=== PATIENT | female | born 1995 | race Hispanic/Latino ===

== ENCOUNTER 2018-03-02 07:16 | Emergency (ER) | payer OTHER ==
[2018-03-02] MEDS ORDERED: ACETAMINOPHEN 500 MG TAB ONE (07:54)
[2018-03-02] MEDS ORDERED: ACETAMINOPHEN 325 MG TABLET ONE (08:02)
[2018-03-02 08:22] LABS: Absolute Lymphocytes (CBC) 0.3 K/uL (0.7-4.9); Absolute Monocytes 0.3 K/uL (0.1-1.3); Absolute Neutrophil 2.7 K/uL (1.8-8.0); Basophils % 0.4 % (0-1.3); Hematocrit 38.8 % (36.0-45.0); Lymphocytes % 8.7 % (15.3-44.8); MCH 30.8 pg (27.0-35.0); MCV 89.6 fL (80-100); MPV 8.8 fL (7.6-11.3); Monocytes % 8.1 % (3.3-12.3); RBC Red Blood Cell Count 4.33 M/uL (3.86-4.86)
[2018-03-02 08:37] LABS: Albumin 3.9 g/dL (3.4-5.0); Bilirubin Direct 0.1 mg/dL (0-0.2); Bilirubin Total 0.2 mg/dL (0.2-1.0); Potassium 3.7 mmol/L (3.5-5.1); Protein, Total 8.1 g/dL (6.4-8.2)
[2018-03-02] MEDS ORDERED: NA CHLORIDE 0.9% 1,000 ML ONE (08:44)
[2018-03-02] MEDS ORDERED: ONDANSETRON 4 MG/2 ML VIAL ONE (08:44)
[2018-03-02 08:52] LABS: Urine Bacteria <20 /HPF (<20); Urine Culture Reflex Order REFLEXED; Urine RBC NONE SEEN /HPF (NONE SEEN)
[2018-03-02 09:22] LABS: Urine Blood NEGATIVE (NEG); Urine Glucose NEGATIVE (NEG); Urine Protein NEGATIVE (NEG)
--- NOTE | 2018-03-02 09:32 | RAD REPORT ---
EXAM DESCRIPTION: CT - Abdomen Pelvis W Contrast - 03/02/2018 8:59 am CLINICAL HISTORY: Abdominal pain with nausea. COMPARISON: 2013 TECHNIQUE: Computed axial tomography of the abdomen pelvis was obtained. 100 cc Isovue-300 was admin istered intravenously. Oral contrast was not requested which limits evaluation of bowel. All CT scans are performed using dose optimization technique as appropriate and may include automated exposure control or mA/KV adjustment according to patient size. FINDINGS: A 5.1 centimeter mass within the left lobe of the liver is unchanged probably representing focal nodular hyperplasia. Spleen, pancreas, adrenal and kidneys appear unremarkable. There is no evidence of diverticulitis. The appendix is normal. 2 centimeters right ovarian cyst is present. Small amount of free fluid within pelvis is noted. Tiny umbilical hernia is seen. Endometrial stripe is prominent IMPRESSION: 2 centimeters right ovarian cyst is present. Small amount of free fluid within pelvis is noted Endometrial stripe is prominent. Pelvic ultrasound in a couple of months is recommended to assess sta bility/resolution
--- NOTE | 2018-03-02 11:35 | ER ---
Nurse's Notes [facility] Name: Oralia Angeles Age: 22 yrs Sex: Female : 1995 Arrival Date: 03/02/2018 Time: 07:19 Bed 20 Private MD: Fanny Argueta K Diagnosis: Other ovarian cysts;Viral infection, unspecified Presentation: 03/02 07:21 Initial Sepsis Screen: Does the patient meet any 2 criteria? No. Patient's initial rb1 sepsis screen is negative. Does the patient have a suspected source of infection? No. Patient's initial sepsis screen is negative. Care prior to arrival: None. 07:26 Presenting complaint: Patient states: Nausea, chills, malaise since yesterday. Had I\T\D hb of left axilla last week by Dr. Hall, on unknown abx. Transition of care: patient was not received from another setting of care. Onset of symptoms was March 01, 2018. Risk Assessment: Do you want to hurt yourself or someone else? Patient reports no desire to harm self or others. 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 - Social history:: Smoking status: Patient/guardian denies using tobacco. - Ebola Screening: : No symptoms or risks identified at this time. Screenin:21 Abuse screen: Denies threats or abuse. Nutritional screening: No deficits noted. rb1 Tuberculosis screening: No symptoms or risk factors identified. Fall Risk None identified. Assessment: 07:21 General: Appears uncomfortable, Behavior is calm, cooperative, Reports chills for fever rb1 for feeling ill for 12-24 hours, fatigue for 12-24 hours. Pain: Complains of pain in head Pain currently is 7 out of 10 on a pain scale. Pain began 1 day ago. Neuro: Level of Consciousness is awake, alert, obeys commands, Oriented to person, place, time, situation. Cardiovascular: Capillary refill < 3 seconds is brisk in bilateral fingers. Respiratory: Airway is patent Respiratory effort is even, unlabored, Respiratory pattern is regular, symmetrical. GI: Abdomen is flat, Reports nausea. : No signs and/or symptoms were reported regarding the genitourinary system. Derm: Skin is dry, Skin is normal, Skin temperature is warm. Musculoskeletal: Range of motion: intact in all extremities. 08:20 Reassessment: Patient appears in no apparent distress at this time. No changes from rb1 previously documented assessment. 09:20 Reassessment: Patient appears in no apparent distress at this time. Patient and/or rb1 family updated on plan of care and expected duration. Pain level reassessed. Patient is alert, oriented x 3, equal unlabored respirations, skin warm/dry/pink. 10:20 Reassessment: Patient appears in no apparent distress at this time. No changes from rb1 previously documented assessment. Significant other at bedside. 11:19 Reassessment: Patient appears in no apparent distress at this time. Patient and/or rb1 family updated on plan of care and expected duration. Pain level reassessed. Patient is alert, oriented x 3, equal unlabored respirations, skin warm/dry/pink. Pt. is watching TV. Discharge pending due to the provider speaking with the pt. about test results. 12:12 Reassessment: Patient appears in no apparent distress at this time. Asked the provider rb1 to speak with the pt. so she could be discharge. 12:40 Reassessment: Provider at bedside. rb1 Vital Signs: 07:27 BP 109 / 72; Pulse 132; Resp 16; Temp 100.8(O); Pulse Ox 100% on R/A; Weight 68.04 kg; hb Height 5 ft. 1 in. (154.94 cm); Pain 7/10; 08:27 BP 101 / 65; Pulse 105; Resp 17; Pulse Ox 99% on R/A; rb1 09:27 BP 104 / 67; Pulse 104; Resp 17; Pulse Ox 99% on R/A; rb1 10:25 BP 103 / 66; Pulse 97; Resp 17; Temp 99(O); Pulse Ox 99% on R/A; rb1 12:25 BP 102 / 68; Pulse 92; Resp 16; Pulse Ox 98% on R/A; rb1 07:27 Body Mass Index 28.34 (68.04 kg, 154.94 cm) ED Course: 07:19 Patient arrived in ED. as 07:20 Fanny Argueta MD is Private Physician. as 07:21 Patient has correct armband on for positive identification. Placed in gown. Bed in low rb1 position. Call light in reach. Side rails up X 1. Pulse ox on. NIBP on. sheet was given. 07:23 Ramesh Rodriguez NP is PHCP. pm1 07:27 Triage completed. hb 07:27 Arm band placed on left wrist. hb 07:30 Tiffanie Rosenberg RN is Primary Nurse. rb1 07:33 Jesús Coles MD is Attending Physician. pm1 08:10 Inserted saline lock: 22 gauge in left antecubital area, using aseptic technique. Blood rb1 collected. 08:[address] via wheelchair. jg6 08:53 CT completed. Patient tolerated procedure well. Patient moved back from CT. jg6 08:58 CT Abd/Pelvis - W/Contrast: IV contrast only In Process Unspecified. EDMS 12:48 No provider procedures requiring assistance completed. IV discontinued, intact, rb1 bleeding controlled, No redness/swelling at site. Pressure dressing applied. Administered Medications: 08:00 Drug: Tylenol 650 mg Route: PO; rb1 10:01 Follow up: Response: No adverse reaction; Temperature is decreased; Temp 99.0 rb1 08:20 Not Given (provider changed order): Tylenol 1000 mg PO once rb1 09:10 Drug: NS 0.9% 1000 ml Route: IV; Rate: 1000 ml; Site: left antecubital; rb1 10:19 Follow up: IV Status: Completed infusion rb1 09:10 Drug: Zofran 4 mg Route: IVP; Site: left antecubital; rb1 09:30 Follow up: Response: No adverse reaction; Nausea is decreased rb1 Intake: Outcome: 11:34 Discharge ordered by . pm1 12:48 Patient left the ED. rb1 12:48 Discharged to home ambulatory. rb1 12:48 Condition: stable 12:48 Discharge instructions given to patient, Instructed on discharge instructions, follow up and referral plans. medication usage, Demonstrated understanding of instructions, follow-up care, medications, Prescriptions given X 1. Signatures: Dispatcher [employer] EDMS Nicole Hall as Tiffanie Rosenberg RN RN rb1 Ramesh Rodriguez NP NURSE PRIVATE DUTY pm1 Chiara Ramos RN RN Tata Bales jg6
--- NOTE | 2018-03-02 11:35 | EDPHYS ---
Physician Documentation [facility] Name: Oralia Angeles Age: 22 yrs Sex: Female : 1995 Arrival Date: 03/02/2018 Time: 07:19 Bed 20 Private MD: Fanny Argueta K ED Physician Jesús Coles HPI: 03/02 08:00 This 22 yrs old Female presents to ER via Ambulatory with complaints of pm1 Nausea, Dizziness, Weakness. 08:00 The patient presents to the emergency department with nausea, chills, decreased energy. pm1 Onset: The symptoms/episode began/occurred yesterday. Possible causes: unknown. The symptoms are aggravated by nothing. The symptoms are alleviated by nothing. Associated signs and symptoms: Pertinent positives: fever, Pertinent negatives: abdominal pain, constipation, diarrhea, dysuria, vomiting. Severity of symptoms: Pain is currently a 0 / 10. The patient has been recently seen by a physician: for apparently unrelated complaints, cyst removal on right arm by Dr. Hall. Wound evaluated this week and no signs of infection present. 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 - Social history:: Smoking status: Patient/guardian denies using tobacco. - Ebola Screening: : No symptoms or risks identified at this time. ROS: 08:00 Eyes: Negative for injury, pain, redness, and discharge, ENT: Negative for injury, pm1 pain, and discharge, Neck: Negative for injury, pain, and swelling, Cardiovascular: Negative for chest pain, palpitations, and edema, Respiratory: Negative for shortness of breath, cough, wheezing, and pleuritic chest pain, Back: Negative for injury and pain, MS/Extremity: Negative for injury and deformity, Skin: Negative for injury, rash, and discoloration. 08:00 : Negative for injury, bleeding, discharge, and swelling. 08:00 Constitutional: Positive for body aches, fever, malaise. 08:00 Abdomen/GI: Positive for nausea, Negative for abdominal pain, vomiting, diarrhea. 08:00 Neuro: Negative for dizziness, headache, numbness, tingling, weakness. Exam: 08:00 Constitutional: This is a well developed, well nourished patient who is awake, alert, pm1 and in no acute distress. Head/Face: Normocephalic, atraumatic. Eyes: Pupils equal round and reactive to light, extra-ocular motions intact. Lids and lashes normal. Conjunctiva and sclera are non-icteric and not injected. Cornea within normal limits. Periorbital areas with no swelling, redness, or edema. ENT: Nares patent. No nasal discharge, no septal abnormalities noted. Tympanic membranes are normal and external auditory canals are clear. Oropharynx with no redness, swelling, or masses, exudates, or evidence of obstruction, uvula midline. Mucous membranes moist. Neck: Trachea midline, no thyromegaly or masses palpated, and no cervical lymphadenopathy. Supple, full range of motion without nuchal rigidity, or vertebral point tenderness. No Meningismus. Chest/axilla: Normal chest wall appearance and motion. Nontender with no deformity. No lesions are appreciated. Cardiovascular: Regular rate and rhythm with a normal S1 and S2. No gallops, murmurs, or rubs. Normal PMI, no JVD. No pulse deficits. Respiratory: Lungs have equal breath sounds bilaterally, clear to auscultation and percussion. No rales, rhonchi or wheezes noted. No increased work of breathing, no retractions or nasal flaring. Abdomen/GI: Soft, non-tender, with normal bowel sounds. No distension or tympany. No guarding or rebound. No evidence of tenderness throughout. Back: No spinal tenderness. No costovertebral tenderness. Full range of motion. Skin: Warm, dry with normal turgor. Normal color with no rashes, no lesions, and no evidence of cellulitis. MS/ Extremity: Pulses equal, no cyanosis. Neurovascular intact. Full, normal range of motion. 08:00 Neuro: Orientation: is normal, Motor: is normal, moves all fours, Sensation: is normal, no obvious gross deficits, Gait: is steady, at a normal pace, without difficulty. Vital Signs: 07:27 BP 109 / 72; Pulse 132; Resp 16; Temp 100.8(O); Pulse Ox 100% on R/A; Weight 68.04 kg; hb Height 5 ft. 1 in. (154.94 cm); Pain 7/10; 08:27 BP 101 / 65; Pulse 105; Resp 17; Pulse Ox 99% on R/A; rb1 09:27 BP 104 / 67; Pulse 104; Resp 17; Pulse Ox 99% on R/A; rb1 10:25 BP 103 / 66; Pulse 97; Resp 17; Temp 99(O); Pulse Ox 99% on R/A; rb1 12:25 BP 102 / 68; Pulse 92; Resp 16; Pulse Ox 98% on R/A; rb1 07:27 Body Mass Index 28.34 (68.04 kg, 154.94 cm) hb MDM: 07:23 Patient medically screened. pm1 11:27 Data reviewed: vital signs. Data interpreted: Pulse oximetry: on room air is 99 %. pm1 Interpretation: normal. 11:32 Counseling: I had a detailed discussion with the patient and/or guardian regarding: the pm1 historical points, exam findings, and any diagnostic results supporting the discharge/admit diagnosis, lab results, radiology results, the need for outpatient follow up, to return to the emergency department if symptoms worsen or persist or if there are any questions or concerns that arise at home. 03/02 07:46 Order name: Urine Microscopic Only; Complete Time: 09:35 pm1 03/02 07:46 Order name: Flu; Complete Time: 11:28 pm1 03/02 07:46 Order name: Strep; Complete Time: 11:28 pm1 03/02 07:49 Order name: Basic Metabolic Panel; Complete Time: 08:48 pm1 03/02 07:49 Order name: CBC with Diff; Complete Time: 08:48 pm1 03/02 07:49 Order name: Creatinine for Radiology; Complete Time: 08:48 pm1 03/02 07:49 Order name: Hepatic Function; Complete Time: 08:48 pm1 03/02 07:49 Order name: Lipase; Complete Time: 08:48 pm1 03/02 07:50 Order name: Woods Screen Profile pm1 03/02 07:51 Order name: Woods Screen; Complete Time: 09:35 EDMS 03/02 08:37 Order name: Urine Dipstick--Ancillary (enter results); Complete Time: 09:35 eb 03/02 08:37 Order name: Urine --Ancillary (enter results); Complete Time: 09:35 eb 03/02 08:54 Order name: Urine Culture [facility] 03/02 09:40 Order name: Throat Culture [facility] 03/02 07:46 Order name: Urine Dipstick-Ancillary (obtain specimen); Complete Time: 08:20 pm1 03/02 07:49 Order name: IV Saline Lock; Complete Time: 08:19 pm1 03/02 07:49 Order name: Labs collected and sent; Complete Time: 08:19 pm1 03/02 07:50 Order name: CT Abd/Pelvis - W/Contrast: IV contrast only; Complete Time: 09:35 pm1 Administered Medications: 08:00 Drug: Tylenol 650 mg Route: PO; rb1 10:01 Follow up: Response: No adverse reaction; Temperature is decreased; Temp 99.0 rb1 08:20 Not Given (provider changed order): Tylenol 1000 mg PO once rb1 09:10 Drug: NS 0.9% 1000 ml Route: IV; Rate: 1000 ml; Site: left antecubital; rb1 10:19 Follow up: IV Status: Completed infusion rb1 09:10 Drug: Zofran 4 mg Route: IVP; Site: left antecubital; rb1 09:30 Follow up: Response: No adverse reaction; Nausea is decreased rb1 Disposition: 03/02/18 11:34 Discharged to Home. Impression: Viral infection, unspecified, Other ovarian cysts. - Condition is Stable. - Discharge Instructions: Fever, Adult, Nausea, Adult, Ovarian Cyst. - Prescriptions for Zofran 4 mg Oral Tablet - take 1 tablet by ORAL route every 12 hours As needed; 20 tablet. - Work release form, Medication Reconciliation Form, Thank You Letter, Antibiotic Education form. - Follow up: Emergency Department; When: As needed; Reason: Worsening of condition. Follow up: Private Physician; When: 2 - 3 days; Reason: Recheck today's complaints, Continuance of care, Re-evaluation by your physician. - Problem is new. - Symptoms have improved. Addendum: 03/04/2018 13:24 Co-signature as Attending Physician, Jesús Coles MD I agree with the assessment and k dr plan of care. Signatures: Dispatcher [employer] [facility] Jesús Coles MD MD kdr Barber, Rebecca, RN RN rb1 Ramesh Rodriguez, PATIENT SERVICES MANAGER PATIENT SERVICES MANAGER pm1 Chiara Ramos RN RN Corrections: (The following items were deleted from the chart) 03/02 12:28 11:34 03/02/2018 11:34 Discharged to Home. Impression: Other ovarian cysts. Condition pm1 is Stable. Forms are Medication Reconciliation Form, Thank You Letter, Antibiotic Education, Prescription Opioid Use. Follow up: Emergency Department; When: As needed; Reason: Worsening of condition. Follow up: Private Physician; When: 2 - 3 days; Reason: Recheck today's complaints, Continuance of care, Re-evaluation by your physician. Problem is new. Symptoms have improved. pm1 12:48 12:28 03/02/2018 11:34 Discharged to Home. Impression: Viral infection, rb1 unspecifiedOther ovarian cysts. Condition is Stable. Discharge Instructions: Ovarian Cyst, Influenza, Adult. Forms are Medication Reconciliation Form, Thank You Letter, Antibiotic Education, Prescription Opioid Use. Follow up: Emergency Department; When: As needed; Reason: Worsening of condition. Follow up: Private Physician; When: 2 - 3 days; Reason: Recheck today's complaints, Continuance of care, Re-evaluation by your physician. Problem is new. Symptoms have improved. pm1
== END 2018-03-02 12:48 | disposition home or self-care (01) ==
LOC: ER 07:16
DX: B34.9 Viral infection, unspecified (principal); N83.299 Other ovarian cyst, unspecified side
CPT/HCPCS: 36415; 74177; 80048; 80076; 81003; 81015; 81025; 83690; 85025; 86308; 87070; 87081; 87086; 87088; 87804; 96361; 96374; 99284; J2405; J7030; Q9967

== ENCOUNTER 2018-03-13 19:13 | Emergency (ER) | payer OTHER ==
--- NOTE | 2018-03-13 20:42 | RAD REPORT ---
EXAM DESCRIPTION: RAD - Ankle Right 3 View - 03/13/2018 8:37 pm CLINICAL HISTORY: Right ankle pain status post injury FINDINGS: No fracture or dislocation is seen. Soft tissue swelling is seen
--- NOTE | 2018-03-13 21:02 | EDPHYS ---
Physician Documentation [facility] Name: Oralia Angeles Age: 22 yrs Sex: Female : 1995 Arrival Date: 03/13/2018 Time: 19:14 Bed 12 Private MD: Fanny Argueta K ED Physician Miguel Kenyon HPI: 03/13 20:57 This 22 yrs old Female presents to ER via Wheelchair with complaints of Right pm1 Ankle Injury. 20:57 The patient presents with pain, swelling. The complaints affect the right ankle. pm1 Context: The problem was sustained outdoors, resulted from turned right ankle while running, the patient is able to ambulate, Problem is a result from a previous injury: No. Onset: The symptoms/episode began/occurred today. Modifying factors: The symptoms are alleviated by remaining still, the symptoms are aggravated by weight bearing. Associated signs and symptoms: Pertinent negatives calf tenderness, numbness, tingling. Treatment prior to arrival includes: no previous treatment. Severity of symptoms: in the emergency department the symptoms are unchanged. Patient running and she turned her right ankle. Patient reports pain with bearing weight on right foot. 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 - Social history:: Smoking status: Patient/guardian denies using tobacco. - Ebola Screening: : Patient negative for fever greater than or equal to 101.5 degrees Fahrenheit, and additional compatible Ebola Virus Disease symptoms Patient denies exposure to infectious person Patient denies travel to an Ebola-affected area in the 21 days before illness onset. ROS: 20:57 Constitutional: Negative for fever, chills, and weight loss, Eyes: Negative for injury, pm1 pain, redness, and discharge, ENT: Negative for injury, pain, and discharge, Neck: Negative for injury, pain, and swelling, Cardiovascular: Negative for chest pain, palpitations, and edema, Respiratory: Negative for shortness of breath, cough, wheezing, and pleuritic chest pain, Abdomen/GI: Negative for abdominal pain, nausea, vomiting, diarrhea, and constipation, Back: Negative for injury and pain. 20:57 Skin: Negative for injury, rash, and discoloration, Neuro: Negative for headache, weakness, numbness, tingling, and seizure. 20:57 MS/extremity: Positive for pain, of the right ankle. Exam: 20:57 Constitutional: This is a well developed, well nourished patient who is awake, alert, pm1 and in no acute distress. Head/Face: Normocephalic, atraumatic. Eyes: Pupils equal round and reactive to light, extra-ocular motions intact. Lids and lashes normal. Conjunctiva and sclera are non-icteric and not injected. Cornea within normal limits. Periorbital areas with no swelling, redness, or edema. ENT: Nares patent. No nasal discharge, no septal abnormalities noted. Tympanic membranes are normal and external auditory canals are clear. Oropharynx with no redness, swelling, or masses, exudates, or evidence of obstruction, uvula midline. Mucous membranes moist. Neck: Trachea midline, no thyromegaly or masses palpated, and no cervical lymphadenopathy. Supple, full range of motion without nuchal rigidity, or vertebral point tenderness. No Meningismus. Chest/axilla: Normal chest wall appearance and motion. Nontender with no deformity. No lesions are appreciated. Cardiovascular: Regular rate and rhythm with a normal S1 and S2. No gallops, murmurs, or rubs. Normal PMI, no JVD. No pulse deficits. Respiratory: Lungs have equal breath sounds bilaterally, clear to auscultation and percussion. No rales, rhonchi or wheezes noted. No increased work of breathing, no retractions or nasal flaring. Abdomen/GI: Soft, non-tender, with normal bowel sounds. No distension or tympany. No guarding or rebound. No evidence of tenderness throughout. Back: No spinal tenderness. No costovertebral tenderness. Full range of motion. 20:57 Skin: Warm, dry with normal turgor. Normal color with no rashes, no lesions, and no evidence of cellulitis. 20:57 Musculoskeletal/extremity: Extremities: grossly normal except: noted in the right ankle lateral aspect: pain, swelling, tenderness, ROM: intact in all extremities, Circulation is intact in all extremities. the right foot Sensation intact. 20:57 Neuro: Orientation: is normal, Motor: is normal, moves all fours. Vital Signs: 19:53 BP 100 / 76; Pulse 96; Resp 18; Temp 97.4(O); Pulse Ox 100% on R/A; Weight 68.04 kg fc (R); Height 5 ft. 1 in. (154.94 cm); Pain 9/10; 19:53 Body Mass Index 28.34 (68.04 kg, 154.94 cm) fc MDM: 20:06 Patient medically screened. pm1 21:01 Data reviewed: vital signs. Data interpreted: Pulse oximetry: on room air is 100 %. pm1 Interpretation: normal. Counseling: I had a detailed discussion with the patient and/or guardian regarding: the historical points, exam findings, and any diagnostic results supporting the discharge/admit diagnosis, radiology results, the need for outpatient follow up, a orthopedic surgeon, to return to the emergency department if symptoms worsen or persist or if there are any questions or concerns that arise at home. 03/13 20:10 Order name: Ankle Right 3 View XRAY; Complete Time: 20:52 lp1 03/13 20:57 Order name: Aircast Ankle Splint; Complete Time: 21:16 pm1 03/13 20:57 Order name: Crutches; Complete Time: 21:16 pm1 Administered Medications: No medications were administered Disposition: 03/14 02:10 Co-signature as Attending Physician, Miguel Kenyon MD I agree with the assessment and tw4 plan of care. Attestation: The patient's history, exam findings, diagnostics, and a summary of any interventions or procedures was reviewed in detail with Ramesh Rodriguez NP. Disposition: 03/13/18 21:02 Discharged to Home. Impression: Sprain of other ligament of right ankle. - Condition is Stable. - Discharge Instructions: Ankle Sprain, Cast or Splint Care, Adult, Crutch Use, RICE for Routine Care of Injuries, Ankle Pain. - Prescriptions for Naprosyn 500 mg Oral Tablet - take 1 tablet by ORAL route 2 times per day take with food; 30 tablet. Tylenol- Codeine #3 300-30 mg Oral Tablet - take 2 tablets by ORAL route every 6 hours As needed; 20 tablet. - Work release form, Medication Reconciliation Form, Thank You Letter, Prescription Opioid Use form. - Follow up: Emergency Department; When: As needed; Reason: Worsening of condition. Follow up: Karan Kennedy MD; When: 2 - 3 days; Reason: Recheck today's complaints, Continuance of care, Re-evaluation by your physician. - Problem is new. - Symptoms have improved. Signatures: Dispatcher [employer] EDMS Regina Amezcua RN RN Daphne Obregon RN RN lp1 Ramesh Rodriguez, PIPE MACHINE OPERATOR PIPE MACHINE OPERATOR pm1 Miguel Kenyon MD MD tw4 Corrections: (The following items were deleted from the chart) 03/13 21:18 21:02 03/13/2018 21:02 Discharged to Home. Impression: Sprain of other ligament of lp1 right ankle. Condition is Stable. Forms are Medication Reconciliation Form, Thank You Letter, Antibiotic Education, Prescription Opioid Use. Follow up: Emergency Department; When: As needed; Reason: Worsening of condition. Follow up: Dr. Karan Kennedy; When: 2 - 3 days; Reason: Recheck today's complaints, Continuance of care, Re-evaluation by your physician. Problem is new. Symptoms have improved. pm1
--- NOTE | 2018-03-13 21:02 | ER ---
Nurse's Notes [facility] Name: Oralia Angeles Age: 22 yrs Sex: Female : 1995 Arrival Date: 03/13/2018 Time: 19:14 Bed 12 Private MD: Fanny Argueta K Diagnosis: Sprain of other ligament of right ankle Presentation: 03/13 19:51 Presenting complaint: Patient states: that she was running and right foot fell in hole fc and rolled outward. States that she heard a pop and now outer side of ankle is swollen and she has decreased ROM. Transition of care: patient was not received from another setting of care. Onset of symptoms was March 13, 2018 at 18:30. Risk Assessment: Do you want to hurt yourself or someone else? Patient reports no desire to harm self or others. Initial Sepsis Screen: Does the patient meet any 2 criteria? HR > 90 bpm. Yes Does the patient have a suspected source of infection? No. Patient's initial sepsis screen is negative. Care prior to arrival: None. 19:51 Method Of Arrival: Wheelchair 19:51 Acuity: LUIS ARMANDO 4 Triage Assessment: 19:54 General: Appears uncomfortable, Behavior is calm, cooperative, appropriate for age. fc Pain: Complains of pain in right foot Pain currently is 9 out of 10 on a pain scale. Quality of pain is described as aching, Pain began 2 hours ago. Is continuous, Aggravated by increased activity, repositioning, weight bearing. EENT: No deficits noted. Neuro: Level of Consciousness is awake, alert, obeys commands, Oriented to person, place, time, situation. Cardiovascular: No deficits noted. Respiratory: No deficits noted. GI: No deficits noted. : No deficits noted. Derm: Skin is pink, warm \T\ dry. Musculoskeletal: Capillary refill < 3 seconds, Range of motion: limited in right ankle Swelling present in right lateral malleolus Reports pain in right foot. 20:13 Injury Description: swelling noted to right lateral ankle. 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 - Social history:: Smoking status: Patient/guardian denies using tobacco. - Ebola Screening: : Patient negative for fever greater than or equal to 101.5 degrees Fahrenheit, and additional compatible Ebola Virus Disease symptoms Patient denies exposure to infectious person Patient denies travel to an Ebola-affected area in the 21 days before illness onset. Screenin:54 Abuse screen: Denies threats or abuse. Nutritional screening: No deficits noted. Tuberculosis screening: No symptoms or risk factors identified. Fall Risk None identified. Assessment: 20:11 General: Appears in no apparent distress. Behavior is appropriate for age. Pain: lp1 Complains of pain in right lateral malleolus Pain currently is 7 out of 10 on a pain scale. Quality of pain is described as aching. Neuro: Level of Consciousness is awake, alert, obeys commands. Cardiovascular: No deficits noted. Respiratory: No deficits noted. GI: No deficits noted. : No deficits noted. EENT: No deficits noted. Derm: Skin is pink, warm \T\ dry. Musculoskeletal: Range of motion: limited in right ankle Swelling present in right lateral malleolus. Vital Signs: 19:53 BP 100 / 76; Pulse 96; Resp 18; Temp 97.4(O); Pulse Ox 100% on R/A; Weight 68.04 kg (R); Height 5 ft. 1 in. (154.94 cm); Pain 9/10; 19:53 Body Mass Index 28.34 (68.04 kg, 154.94 cm) ED Course: 19:14 Patient arrived in ED. am2 19:14 Fanny Argueta MD is Private Physician. am2 19:53 Triage completed. 19:53 Arm band placed on Patient placed in an exam room, on a stretcher. 19:54 Patient has correct armband on for positive identification. Call light in reach. fc 20:02 Daphne Obregon RN is Primary Nurse. lp1 20:03 Ramesh Rodriguez NP is PHCP. pm1 20:03 Miguel Kenyon MD is Attending Physician. pm1 20:14 Patient did not have IV access during this emergency room visit. lp1 20:27 X-ray(s) taken. lp1 20:37 Ankle Right 3 View XRAY In Process Unspecified. EDMS 21:01 Karan Kennedy MD is Referral Physician. pm1 21:16 Crutch training done. Luiz wrap to right ankle Aircast splint applied to right ankle. lp1 21:17 No provider procedures requiring assistance completed. lp1 Administered Medications: No medications were administered Outcome: 21:02 Discharge ordered by . pm1 21:17 Discharged to home with crutches, with significant other. lp1 21:17 Condition: good 21:17 Discharge instructions given to patient, Instructed on discharge instructions, follow up and referral plans. medication usage, crutch walking, Demonstrated understanding of instructions, follow-up care, medications, crutch walking, Prescriptions given X 2. 21:18 Patient left the ED. lp1 Signatures: Dispatcher [employer] EDMT Regina Amezcua RN RN Daphne Benton RN RN lp1 Ramesh Rodriguez, [facility] pm1 Rylie Putnam am2
== END 2018-03-13 21:18 | disposition home or self-care (01) ==
LOC: ER 19:13
DX: S93.491A Sprain of other ligament of right ankle, initial encounter (principal); X58.XXXA Exposure to other specified factors, initial encounter; Y93.02 Activity, running; Y92.89 Other specified places as the place of occurrence of the external cause
CPT/HCPCS: 99283

== ENCOUNTER 2022-12-15 12:42 | Emergency (ER) | payer OTHER ==
--- OUTSIDE RECORDS SUMMARY | 2022-12-15 12:51 | XMS REPORT | Continuity of Care Document ---
:[address] [facility] t Address [address] [facility] [address] [place] [address] Care Team Providers Name Role Phone Fanny Argueta MD Primary Care Physician Fanny Argueta Attending Clinician Unavailable Chino Mccord Attending Clinician Unavailable Erlinda Rushing Attending Clinician Unavailable Ramesh Parisi Attending Clinician Unavailable VANESSA BARRIENTOS Attending Clinician Unavailable GC_[email or web address]_Monical_J Attending Clinician Unavailable Marie Franco Attending Clinician Unavailable LAB90 Attending Clinician Unavailable JUANA DUKES Attending Clinician Unavailable JT LOPEZ Attending Clinician Unavailable SLIM SAINI Attending Clinician Unavailable Slim Saini MD Attending Clinician 2, Adc Lab Attending Clinician Unavailable Lab, Adc Fam Pob I Attending Clinician Unavailable Eva Werner Attending Clinician Doctor Unassigned, [place] Attending Clinician Unavailable Cooper Colby Attending Clinician COOPER HARRIS Attending Clinician Unavailable REGAN PERRY Attending Clinician Unavailable HERIBERTO RUIZ Attending Clinician Unavailable Ileana Nieves Attending Clinician Fanny Argueta Admitting Clinician Unavailable Chino Mccord Admitting Clinician Unavailable Ramesh Parisi Admitting Clinician Unavailable GC_[email or web address]_J Admitting Clinician Unavailable MARIE FRANCO Admitting Clinician Unavailable SLMI SAINI Admitting Clinician Unavailable Payers Payer Name Policy Type Policy Number Effective Date Expiration Date Melody kuo [place] [address] 2 [id number] 2022 00:00:00 DEGREE BENEFIT [facility] [id number] PLANS - OPEN ACCESS [facility] ALICE [id number] 2021 00:00:00 CIGNA II [id number] 2005 00:00:00 Problems Condition Condition Condition Status Onset Resolution Last Treating Co mments Source Name Details Category Date Date Treatment Clinician Date Other Other Disease Active Evelyne fatigue fatigue 07-15 Seybold 00:00: - 00 Externa l Bruising Bruising Disease Active Kelse y 2 Seybold 00:00: - 00 Externa l Asymptomat 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 GI-Dr. 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 [place] elial 00 Medical lesion lesion Branch (LGSIL) on (LGSIL) on Papanicola Papanicola ou smear ou smear of cervix of cervix Pelvic Pelvic Disease Active 2015-05 Univers pain in pain in 2-13 ity of female female 00:00: [place] [facility] Dyspareuni Dyspareuni Disease Active U nivers a a 9-07 ity of 00:00: [place] [address] Medical Branch Allergies, Adverse Reactions, Alerts Allergy Allergy Status Severity Reaction(s) Onset Inactive Treating Comm ents Source Name Type Date Date Clinician No Known [place] [address] [facility] 16 [facility] 00[facility] 00 [facility] No Known DA Active U 0 [facility] Allergie 16 [facility] 00:[facility]: [facility] 00 [facility] No Known DA Active U [facility] Allergie 16 [facility] 00:00: [facility] 00 [facility] No Known DA Active U 0 [facility] Allergie 16 [facility] 00:00: [facility]osp[facility] 00 [facility] NO KNOWN Drug Active Univers ALLERGIE Class ity of [facility] [place] [facility] [place] Family History Family Member Diagnosis Comments Start Date Stop Date Source Paternal grandfather Hypertension [facility] Paternal grandfather [facility] Paternal grandfather Diabetes [facility] Paternal grandmother Diabetes [facility] Maternal grandfather Diabetes [facility] Maternal grandfather Heart disease [facility] Maternal grandfather Hypertension [facility] Maternal grandmother Cancer [facility] Maternal grandmother Diabetes [facility] Maternal grandmother Hypertension [facility] Social History Social Habit Start Date Stop Date Quantity Comments Source ASSERTION 2019-09-24 [facility] 00:[facility]:00 Hospital Exposure to Not sure University of SARS-CoV-2 (event) [facility] Gender identity [facility] Sexual orientation Method [facility] Alcohol intake 2022-07-15 2022-07-15 Lifetime Evelyne De La Cruzgene bold - 00:00:00 00:00:00 non-drinker External (finding) Education 2022-02-05 2022-02-05 16 Evelyne Seybold - 00:00:00 00:00:00 External Tobacco use and 2022-02-05 2022-02-05 Smokeless Evelyne De La Cruz ybold - exposure 00:00:00 00:00:00 tobacco non-user External History of Social 2020-02-27 2020-02-[address] function 00:00:00 00:00:00 Hospital Sex Assigned At [birth year] [facility] 00:00:00 00:00:00 Hospital Smoking Status Start Date Stop Date Source Never smoked tobacco Evelyne nuzhat old - External Medications Ordered Filled Start Stop Current Ordering Indication Dosage Frequency Signature Comments Components Source Medication Medication Date Date Medication? Clinician (SIG) Name Name No known No No known Kelse y medications 9-19 medication Se ybold 09:09: s - 44 Externa l gadobenate 2021- No [id number] .2mL/kg 0.2 mL/kg, Univers dimeglumine 08-28 04-08 Intravenou i ty of (MULTIHANCE 00:15: 00:14 s, ONCE, 1 [place] -10 mL) 00 :00 dose, On Medical injection Ligai 08/27/21 Bran ch 0.2 mL/kg at 1915, Routine Yes 1{tbl} QD Take 1 Metho di vitamins 7-[address] no.2 08:31: mouth Hospita ( 36 daily. l VITAMIN NO.2 ORAL) 2019-0 Yes 1{tbl} QD Take 1 Metho di vitamins 7-[address] no.2 08:31: mouth Hospita ( 36 daily. l VITAMIN NO.2 ORAL) acetaminoph 2019-0 Yes Method i en-codeine 7-16 st (TYLENOL 00:00: Hospita WITH 00 l CODEINE #3) 300-30 mg per tablet ondansetron 2019-0 Yes Method i ODT 7-16 st (ZOFRAN-ODT 00:00: Hospit a ) 4 MG 00 l disintegrat ing tablet acetaminoph 2019-0 Yes Method i en-codeine 16 st (TYLENOL 00:00: Hospita WITH 00 l CODEINE #3) 300-30 mg per tablet ondansetron 2019-0 Yes Method i ODT 16 st (ZOFRAN-ODT 00:00: Hospit a ) 4 MG 00 l disintegrat ing tablet nitrofurant 2019-0 Yes Method i oin, 12-02 st macrocrysta 00:00: Hospit a l-monohydra 00 l te, (MACROBID) 100 MG capsule nitrofurant 2019-0 Yes Method i oin, 12-02 st macrocrysta 00:00: Hospit a l-monohydra 00 l te, (MACROBID) 100 MG capsule cephalexin 2019-0 Yes 500mg Take 500 Me thodi (KEFLEX) 7-[address] 500 MG 00:00: mouth. Hospita capsule 00 l cephalexin 2019-0 Yes 500mg Take 500 Me thodi (KEFLEX) 7-[address] 500 MG 00:00: mouth. Hospita capsule 00 l acetaminoph 2017-05 Yes 1{tbl} Q4H Take 1 Me thodi en-codeine 1-[address] (TYLENOL 10:29: mouth Hospita WITH 23 every 4 l CODEINE #3) (four) 300-30 mg hours as per tablet needed for moderate pain. acetaminoph 2017-05 Yes 1{tbl} Q4H Take 1 Me thodi en-codeine 1-[address] (TYLENOL 10:29: mouth Hospita WITH 23 every 4 l CODEINE #3) (four) 300-30 mg hours as per tablet needed for moderate pain. isometh-dic Yes TAKE 1 OR U nivers hloral-acet 6-27 2 TABLETS ity of aminophn 00:00: BY MOUTH 3 Carlos as 65-100-325 00 TIMES A Medica l mg capsule DAY Branch NEEDED FOR HEADACHE isometh-dic Yes TAKE 1 OR U nivers hloral-acet 6-27 2 TABLETS ity of aminophn 00:00: BY MOUTH 3 [place] as 65-100-325 00 TIMES A Medica l mg capsule DAY Branch NEEDED FOR HEADACHE isometh-dic Yes TAKE 1 OR U nivers hloral-acet 6-27 2 TABLETS ity of aminophn 00:00: BY MOUTH 3 [place] as 65-100-325 00 TIMES A Medica l mg capsule DAY Branch NEEDED FOR HEADACHE isometh-dic Yes TAKE 1 OR U nivers hloral-acet 6-27 2 TABLETS ity of aminophn 00:00: BY MOUTH 3 [place] as 65-100-325 00 TIMES A Medica l mg capsule DAY Branch NEEDED FOR HEADACHE isometh-dic Yes TAKE 1 OR U nivers hloral-acet 6-27 2 TABLETS ity of aminophn 00:00: BY MOUTH 3 [place] as 65-100-325 00 TIMES A Medica l mg capsule DAY Branch NEEDED FOR HEADACHE isometh-dic Yes TAKE 1 OR U nivers hloral-acet 6-27 2 TABLETS ity of aminophn 00:00: BY MOUTH 3 [place] as 65-100-325 00 TIMES A Medica l mg capsule DAY Branch NEEDED FOR HEADACHE isometh-dic Yes TAKE 1 OR U nivers hloral-acet 6-27 2 TABLETS ity of aminophn 00:00: BY MOUTH 3 [place] as 65-100-325 00 TIMES A Medica l mg capsule DAY Branch NEEDED FOR HEADACHE 2015-05 Yes 1{tbl} Take 1 Unive rs VIT 2-13 tablet by ity of W-CA,FE,FA, 21:42[place] <1 MG, 51 Medical ( Branch VITAMIN ORAL) 2015-05 Yes 1{tbl} Take 1 Unive rs VIT 2-13 tablet by ity of W-CA,FE,FA, 21:42: [place] <1 MG, 51 Medical ( Branch VITAMIN ORAL) 2016 Yes 1{tbl} Take 1 Unive rs VIT 2-13 tablet by ity of W-CA,FE,FA, 21:42: [place]. [place] <1 MG, 51 Medical ( Branch VITAMIN ORAL) 2016 Yes 1{tbl} Take 1 Unive rs VIT 2-13 tablet by ity of W-CA,FE,FA, 15:42: [place]. [place] <1 MG, 51 Medical ( Branch VITAMIN ORAL) 2016 Yes 1{tbl} Take 1 Unive rs VIT 2-13 tablet by ity of W-CA,FE,FA, 15:42: [place]. [place] <1 MG, 51 Medical ( Branch VITAMIN ORAL) 2016 Yes 1{tbl} Take 1 Unive rs VIT 2-13 tablet by ity of W-CA,FE,FA, 15:42: [place]. [place] <1 MG, 51 Medical ( Branch VITAMIN ORAL) 2015-05 Yes 1{tbl} Take 1 Unive rs VIT 2-13 tablet by ity of W-CA,FE,FA, 15:42: [place]. [place] <1 MG, 51 Medical ( Branch VITAMIN ORAL) Immunizations Ordered Filled Immunization Date Status Comments [facility] Immunization Name Name Varicella 2015-11-20 Completed [place] (varivax)(chicken 00:00:00 [place] [facility] [place] pox) Branch Varicella 2015-11-20 Completed [facility] (varivax)(chicken 00:00:00 [place] [facility] [place] pox) Branch Varicella 2015-11-20 Completed [place] (varivax)(chicken 00:00:00 [place] [facility] [place] pox) Branch Varicella 2015-11-20 Completed [place] (varivax)(chicken 00:00:00 [place] [facility] [place] pox) Branch Varicella 2015-11-20 Completed University of (varivax)(chicken 00:00:00 [place] [facility] [place] pox) Branch Varicella 2015-11-20 Completed [place] (varivax)(chicken 00:00:00 [place] [facility] [place] pox) Branch Varicella 2015-11-20 Completed [place] (varivax)(chicken 00:00:00 [place] [facility] [place] pox) Branch Varicella Vaccine 2015-11-20 Completed Evelyne Arambula - 00:00:00 External Varicella Vaccine 2015-11-20 Completed Evelyne Arambula - 00:00:00 External MMR 2015-10-13 Completed University of 00:00:00 [facility] Varicella 2015-10-13 Completed University of (varivax)(chicken 00:00:00 [place] [facility] [place] pox) Branch MMR 2015-10-13 Completed University of 00:00:00 [facility] Varicella 2015-10-13 Completed University of (varivax)(chicken 00:00:00 [place] [facility] [place] pox) Branch MMR 2015-10-13 Completed University of 00:00:00 [facility] Varicella 2015-10-13 Completed University of (varivax)(chicken 00:00:00 [place] [facility] [place] pox) Branch MMR 2015-10-13 Completed University of 00:00:00 [facility] Varicella 2015-10-13 Completed University of (varivax)(chicken 00:00:00 [place] [facility] [place] pox) Branch MMR 2015-10-13 Completed University of 00:00:00 [facility] Varicella 2015-10-13 Completed University of (varivax)(chicken 00:00:00 [place] [facility] [place] pox) Branch MMR 2015-10-13 Completed University of 00:00:00 [facility] Varicella 2015-10-13 Completed University of (varivax)(chicken 00:00:00 [place] [facility] [place] pox) Branch MMR 2015-10-13 Completed University of 00:00:00 [facility] Varicella 2015-10-13 Completed University of (varivax)(chicken 00:00:00 [place] [facility] [place] pox) Branch MMR- Measles, 2015-10-13 Completed Evelyne Poole old - Mumps, Rubella 00:00:00 External Varicella Vaccine 2015-10-13 Completed Evelyne Arambula - 00:00:00 External MMR- Measles, 2015-10-13 Completed Evelyne Poole old - Mumps, Rubella 00:00:00 External Varicella Vaccine 2015-10-13 Completed Evelyne Arambula - 00:00:00 External TDAP 2015-08-08 Completed University of 00:00:00 [facility] TDAP 2015-08-08 Completed University of 00:00:00 [facility] TDAP 2015-08-08 Completed University of 00:00:00 [facility] TDAP 2015-08-08 Completed University of 00:00:00 [facility] TDAP 2015-08-08 Completed University of 00:00:00 [facility] TDAP 2015-08-08 Completed University of 00:00:00 [facility] TDAP 2015-08-08 Completed University of 00:00:00 [facility] Branch Tdap- (Boostrix, 2015-08-08 Completed Evelyne Oliver eybold - Adacel) 00:00:00 External Tdap- (Boostrix, 2015-08-08 Completed Evelyne Oliver eybold - Adacel) 00:00:00 External Vital Signs Vital Name Observation Time Observation Value Comments Source Systolic blood 2022-07-15 17:12:00 105 mm[Hg] Evelyne Seybold - pressure External Diastolic blood 2022-07-15 17:12:00 58 mm[Hg] Claytonse y Seybold - pressure External Heart rate 2022-07-15 17:12:00 87 /min Evelyne Oliver eybold - External Body temperature 2022-07-15 17:12:00 37.33 Angie Nathalia ey Seybold - External Respiratory rate 2022-07-15 17:12:00 14 /min Nathalia garrett Seybold - External Body height 2022-07-15 17:12:00 154.9 cm Evelyne garrettbold - External Body weight 2022-07-15 17:12:00 66.679 kg Evelyne garrettbold - External BMI 2022-07-15 17:12:00 27.78 kg/m2 Evelyne garrettbold - External Oxygen saturation in 2022-07-15 17:12:00 99 /min Evelyne De La Cruznuzhatadriana - Arterial blood by External Pulse oximetry Procedures Procedure Date / Time Performing Clinician Source Performed COVID-19 (MOLECULAR 2021-01-02 13:47:00 Eva Corona [facility] TESTING [facility] Branch NUCLEIC ACID AMPLIFICATION) LAB ONLY COVID 2021-01-02 13:47:00 Eva Corona [facility] INTERPRETATION Medical Branch ASSIGNMENT OF BENEFITS 2021-01-02 13:07:31 Doctor Unassigned, Un [facility] [place] [facility] [id number] 2020-06-13 00:00:[address] [place] [address] [id number] 2020-06-13 00:00:00 HARAD.01 [facility] [id number] 2020-06-13 00:00:00 HARAD.01 [facility] [id number] 2020-06-13 00:00:00 HARAD.01 [facility] Plan of Care Planned Activity Planned Date Details Comments Source Future Scheduled 2022-11-11 COVID-19 VACCINE Method[facility] Test 15:53:51 (#1) [code = COVID-19 VACCINE (#1)] Future Scheduled 2022-11-11 [facility] 15:53:51 screening (procedure) [code = 469543408] Future Scheduled 2022-11-11 [facility] Test 15:53:51 malignant neoplasm of cervix (procedure) [code = 538766299] Future Scheduled 2022-11-11 INFLUENZA VACCINE [facility] Test 15:53:51 [code = INFLUENZA VACCINE] Future Scheduled 2022-08-27 COVID-19 VACCINE [facility] Test 00:06:23 (#1) [code = COVID-19 VACCINE (#1)] Future Scheduled 2022-08-27 [facility] 00:06:23 screening (procedure) [code = 744690458] Future Scheduled 2022-08-27 [facility] Test 00:06:23 malignant neoplasm of cervix (procedure) [code = 261113627] Future Scheduled 2022-08-27 INFLUENZA VACCINE [facility] Test 00:06:23 [code = INFLUENZA VACCINE] Encounters Start End Encounter Admission Attending Care Care Encounter Source Date/Time Date/Time Type Type Clinicians Facility Department ID 2020-06-14 Inpatient ONESIMO Argueta SARAY BAIRD [id number] [facility] 06:10:00 Fanny [id number] [facility] 2020-06-13 Inpatient ONESIMO Argueta SARAY BAIRD [id number] [facility] 09:00:00 Fanny [id number] [facility] 2020-06-11 Inpatient ONESIMO Argueta SARAY BAIRD [id number] [facility] 09:00:00 Fanny [id number] [facility] 2020-06-09 Inpatient TAWANA HamiltonWH LD [id number] [facility] 17:00:00 Fanny [id number] [facility] [place] 2020-06-06 Inpatient SARAY Hamilton LD [id number] [facility] 10:00:00 Fanny [id number] [facility] [place] 2020-05-28 Inpatient Bill [facility] OWEN [id number] [facility] 02:58:00 Mass, [id number] [facility] [place] 2020-04-30 Inpatient [facility] MARE [id number] [facility] 11:03:00 [id number] [facility] [place] 2020-01-24 Inpatient TAWANA MoniqueWH RADI [id number] [facility] 07:00:00 Erlinda [id number] [facility] [place] 2020-01-22 Inpatient TAWANA MoniqueWH PHYT [id number] [facility] 00:05:00 Erlinda [id number] [facility] [place] 2020-01-01 Inpatient TAWANA MoniqueWH PHYT [id number] [facility] 15:50:00 Erlinda [id number] [facility] [place] 2019-12-28 Inpatient [facility] MARE [id number] [facility] 09:28:00 [id number] [facility] [place] 2019-12-07 Inpatient CARLO Parisi [facility] MEDI.01 [id number] [facility] 02:18:00 Ramesh [id number] [facility] [place] 2019-12-06 Inpatient [facility] MARE [id number] [facility] 02:59:00 [id number] [facility] [place] 2022-12-15 2022-12-15 Outpatient EVELYNE BARRIENTOS [id number] Evelyne 00:00:00 00:00:00 VANESSA munoz 2022-12-07 2022-12-07 Outpatient GC_GCBZW_Mo PRIV PRIV [id number] [facility] 00:00:00 00:00:00 Darlin [id number] Medica l 2022-12-03 2022-12-03 Outpatient GC_GCBZW_Mo PRIV PRIV [id number] [facility] 00:00:00 00:00:00 nicalAnthony [id number] Medica l 2022-12-02 2022-12-02 Outpatient PRIV PRIV [id number] [facility] 00:00:00 00:00:00 [id number] Medica l 2022-09-30 2022-09-30 Outpatient [facility] [id number] [facility] 12:00:00 12:00:00 Marie Horan [facility] 2022-07-21 2022-07-21 Outpatient EVELYNE BARRIENTOS [id number] Evelyne 16:15:00 16:15:00 VANESSA Seybol d 2022-07-15 2022-07-15 Outpatient LAB90 EVELYNE GORDON [id number] Evelyne 11:45:00 11:45:00 Seybol d 2022-07-15 2022-07-15 Outpatient EVELYNE BARRIENTOS [id number] Evelyne 11:15:00 11:15:00 VANESSA Seybol d 2022-06-16 2022-06-16 Outpatient EVELYNE DUKES [id number] Evelyne 09:15:00 09:15:00 JAYESON Seybol d 2022-02-08 2022-02-08 Outpatient LAB90 EVELYNE GORDON [id number] Evelyne 08:05:00 08:05:00 Seybol d 2022-02-08 2022-02-08 Outpatient EVELYNE BARRIENTOS [id number] Evelyne 00:00:00 00:00:00 VANESSA Seybol d 2022-02-05 2022-02-05 Outpatient LAB90 EVELYNE GORDON [id number] Evelyne 11:15:00 11:15:00 Seybol d 2022-02-05 2022-02-05 Outpatient PREEVELYNE XIAO [id number] Evelyne 10:30:00 10:30:00 VANESSA Seybol d 2021-08-27 2021-08-27 Outpatient R [facility] [id number] Univers 18:43:06 23:59:00 SLIM Jaimes [facility] 2021-08-27 2021-08-27 [facility] [id number] Univers 18:43:06 23:59:00 Encounter Slim jaimes SPECIALTY [id number] ity of [facility] [id number] C[place] AT [phone] [place] shauna VICTORY 804 [facility] 2021-08-17 2021-08-17 Outpatient R [facility] [id number] Univers 00:00:00 00:00:00 Theodore SLIM rodriguez [facility] 2021-08-06 2021-08-06 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 2021-08-06 2021-08-06 Outpatient R [facility] [id number] Univers 09:15:00 09:15:00 Theodore SLIM wade jan [facility] 2021-01-02 2021-01-02 Laboratory Lab, [facility] Fam Po I [facility] 1.2. [id number] Univers 08:08:16 08:53:01 Only Chloe, [facility] [id number] ity of [place] [id number] [place] as Professio [phone] [place] dical nal [address] [place] [address] 2021-01-02 2021-01-02 Outpatient R [facility] [id number] Univers 08:00:00 08:00:00 ity of [facility] 2021-01-02 2021-01-02 Orders Doctor OPAL [id number] Univers 00:00:00 00:00:00 Only Unassigned, DOMINIQUE [id number] ity of [place] [facility] [id number] Carlos as [phone] [address] 2020-08-02 2020-08-02 Laboratory Lab, [facility] Fam Pob I [facility] 1.2. [id number] [id number] Univers 08:06:02 08:26:02 Only Jared [facility] [id number] [facility] [id number] [place] as Karen [phone] [address] Office [facility] One 2020-08-02 2020-08-02 Outpatient Oziel HARRIS [facility] [id number] Univers 08:00:00 08:00:00 COOPER [facility] 2020-04-02 2020-04-02 Outpatient SARAY Monique [id number] [facility] 17:06:00 17:06:00 Erlinda [id number] [facility] [place] 2020-02-27 2020-02-27 Outpatient SARAY Monique [id number] [facility] 16:22:00 16:22:00 Erlinda [id number] [facility] [place] 2020-02-27 2020-02-27 Outpatient [place]O, [facility] [id number] [place] 00:00:00 00:00:00 REGAN 478 Method i 2020-02-27 2020-02-27 Outpatient [place], [facility] [id number] [place] 00:00:00 00:00:00 REGAN 599 Method i 2020-01-25 2020-01-25 Outpatient SARAY Rushing [facility] [id number] [facility] 09:00:00 09:00:00 Erlinda [id number] [facility] [place] 2020-01-09 2020-01-09 Outpatient JOSEPH, [facility] [id number] [place] 00:00:00 00:00:00 HERIBERTO 297 Method i 2020-01-09 2020-01-09 Outpatient [place], [facility] [id number] [place] 00:00:00 00:00:00 REGAN [address] 2020-01-09 2020-01-09 Outpatient [place], [facility] [id number] [place] 00:00:00 00:00:00 REGAN [address] 2019-12-19 2019-12-19 Outpatient [place], [facility] [id number] [place] 00:00:00 00:00:00 REGAN [address] 2019-12-18 2019-12-18 Outpatient JOSEPH, [facility] [id number] [place] 00:00:00 00:00:00 HERIBERTO [address] 2019-12-14 2019-12-14 Laboratory Lab, [facility] Fam Pob I [facility] 1.2. 840.114 [id number] Univers 08:39:59 08:59:59 Only Ileana [facility] [id number] [facility] [id number] [place] as Professio [phone] Ia dical [address] Office Building One 2019-12-14 2019-12-14 Laboratory Lab, [facility] [id number] 08:39:59 08:59:59 Only Fam Pob I Health [id number] [place] [id number] Professio [phone] [place] [address] [address] 2019-12-14 2019-12-14 Outpatient R [facility] [id number] Univers 08:40:00 08:40:00 [facility] Results Test Description Test Time Test Comments Results Result Comments Source CBC W/AUTO DIFF 2020-06-14 07:15:00 Test Item Value Reference Range Interpretation Comme nts WHITE BLOOD CELL (test code = WBC) 13.5 K/mm3 6.6-12.1 H RED BLOOD CELL (test code = RBC) 3.51 M/mm3 3.45-5.01 N HEMOGLOBIN (test code = HGB) 10.2 g/dL 10.7-13.9 L HEMATOCRIT (test code = HCT) 32.2 % 32.1-42.1 N MEAN CELL VOLUME (test code = MCV) 92 fL 84.1-94.8 N MEAN CELL HGB (test code = MCH) 29.1 pg 27-35 N MEAN CELL HGB CONCETRATION (test code = MCHC) 31.7 gm/dL 32.2-34. 1 L RED CELL DISTRIBUTION WIDTH (test code = RDW) 16.9 % 12.4-16. 5 H PLATELET COUNT (test code = PLT) 204 K/mm3 133-385 N MEAN PLATELET VOLUME (test code = MPV) 10.7 fl 9.1-12.7 N NEUTROPHIL % (test code = NT%) 76.2 % 56.5-79.4 N LYMPHOCYTE % (test code = LY%) 15.2 % 14.3-34.3 N MONOCYTE % (test code = MO%) 7.2 % 5.1-10.4 N EOSINOPHIL % (test code = EO%) 0.4 % 0.1-3.0 N BASOPHIL % (test code = BA%) 0.3 % 0.1-1.0 N NEUTROPHIL # (test code = NT#) 10.3 K/mm3 LYMPHOCYTE # (test code = LY#) 2.0 K/mm3 MONOCYTE # (test code = MO#) 1.0 K/mm3 EOSINOPHIL # (test code = EO#) 0.06 K/mm3 BASOPHIL # (test code = BA#) 0.0 K/mm3 RBC MORPHOLOGY REQUIRED (test code = RBCM) NORMAL NORMAL PLATELET MORPHOLOGY REQUIRED (test code = PLTMR) NORMAL JAIDA L RESULTS VERIFIED BY REPEAT ANALYSISAG HEPATITIS B [id number] 14:37:00 Test Item Value Reference Range Interpretation Comments AG HEPATITIS B SURFACE (test code NONREACTIVE NONREACTIVE = HBSAG) IS CONSENT FORM SIGNED FOR HIV TESTING? YAB HEPATITIS C [id number] 14:37:00 Test Item Value Reference Range Interpretation Comments AB HEPATITIS C (test code = NONREACTIVE NONREACTIVE HCVAB) SIGNAL TO CUTOFF (test code = <0.02 <0.80 N CUTOFF) IS CONSENT FORM SIGNED FOR HIV TESTING? YAB [id number] 14:37:00 Test Item Value Reference Range Interpretation Comments AB TREPONEMA (test code = TREPAB) NONREACTIVE NONREACTIVE IS CONSENT FORM SIGNED FOR HIV TESTING? YAB HIV 1 14:37:00 Test Item Value Reference Range Interpretation Comments AB HIV 1 2 (test NONREACTIVE NONREACTIVE [facility] code = [id number]) 4th Gen HIV Ag/Ab Combo Screen IS CONSENT FORM SIGNED FOR HIV TESTING? YAG HEPATITIS B [id number] 14:30:00 Test Item Value Reference Range Interpretation Comments AG HEPATITIS B SURFACE (test code = NONREACTIVE HBSAG) IS CONSENT FORM SIGNED FOR HIV TESTING? YAB HEPATITIS C [id number] 14:30:00 Test Item Value Reference Range Interpretation Comments AB HEPATITIS C (test code = NONREACTIVE NONREACTIVE HCVAB) SIGNAL TO CUTOFF (test code = <0.02 <0.80 N CUTOFF) IS CONSENT FORM SIGNED FOR HIV TESTING? YAB [id number] 14:30:00 Test Item Value Reference Range Interpretation Comments AB TREPONEMA (test code = TREPAB) NONREACTIVE NONREACTIVE IS CONSENT FORM SIGNED FOR HIV TESTING? ELIZABETHB HIV 1 14:30:00 Test Item Value Reference Range Interpretation Comments AB HIV 1 2 (test NONREACTIVE NONREACTIVE Done [facility] code = [id number]) 4th Gen HIV Ag/Ab Combo Screen IS CONSENT FORM SIGNED FOR HIV TESTING? [id number] 14:26:00 Test Item Value Reference Range Interpretation Comments POTASSIUM (test code = K) 3.8 mEq/L 3.5-5.0 N AG HEPATITIS B [id number] 14:05:00 Test Item Value Reference Range Interpretation Comments AG HEPATITIS B SURFACE (test code = NONREACTIVE HBSAG) IS CONSENT FORM SIGNED FOR HIV TESTING? PATRICIA HEPATITIS C [id number] 14:05:00 Test Item Value Reference Range Interpretation Comments AB HEPATITIS C (test code = HCVAB) NONREACTIVE SIGNAL TO CUTOFF (test code = CUTOFF) <0.80 IS CONSENT FORM SIGNED FOR HIV TESTING? ELIZABETHB [id number] 14:05:00 Test Item Value Reference Range Interpretation Comments AB TREPONEMA (test code = TREPAB) NONREACTIVE NONREACTIVE IS CONSENT FORM SIGNED FOR HIV TESTING? PATRICIA HIV 1 14:05:00 Test Item Value Reference Range Interpretation Comments AB HIV 1 2 (test code = [id number]) NONREACTIVE IS CONSENT FORM SIGNED FOR HIV TESTING? YCHEMISTRY 7 [id number] 13:53:00 Test Item Value Reference Range Interpretation Comments SODIUM (test code = 133 mEq/L 135-145 L NA) POTASSIUM (test 7.0 mEq/L 3.5-5.0 HH HEMOLYZED code = K) SPECIMENRESULTS CALLED TO KAYLENE.RE AD BACK & CONFIRMED? Y.BY [id number] 06/13 1811.Results ve rified by repeat analysis CHLORIDE (test code 101 mEq/L 100-115 N = CL) CARBON DIOXIDE 20 mEq/L 22-31 L (test code = CO2) ANION GAP (test 19.10 10-20 N code = GAP) GLUCOSE (test code 73 mg/dL 65-110 N = GLU) BLOOD UREA NITROGEN 8 mg/dL 7-18 N (test code = BUN) GLOMERULAR 429 ml/min >60 N FILTRATION RATE (test code = GFR) CREATININE (test 0.2 mg/dL 0.5-1.0 L code = CREAT) CALCIUM (test code 8.4 mg/dL 8.4-10.2 N = CA) [id number] 13:53:00 Test Item Value Reference Range Interpretation Comments SGOT/AST (test code = AST) 90 units/L 15-37 H [id number] 13:53:00 Test Item Value Reference Range Interpretation Comments SGPT/ALT (test code = ALT) 21 units/L 12-78 N CBC W/AUTO [id number] 13:24:00 Test Item Value Reference Range Interpretation Comments WHITE BLOOD CELL (test code = WBC) 8.3 K/mm3 6.6-12.1 N RED BLOOD CELL (test code = RBC) 3.93 M/mm3 3.45-5.01 N HEMOGLOBIN (test code = HGB) 11.3 g/dL 10.7-13.9 N HEMATOCRIT (test code = HCT) 35.5 % 32.1-42.1 N MEAN CELL VOLUME (test code = MCV) 90 fL 84.1-94.8 N MEAN CELL HGB (test code = MCH) 28.8 pg 27-35 N MEAN CELL HGB CONCETRATION (test 31.8 gm/dL 32.2-34.1 L code = MCHC) RED CELL DISTRIBUTION WIDTH (test 17.2 % 12.4-16.5 H code = RDW) PLATELET COUNT (test code = PLT) 259 K/mm3 133-385 N IMMATURE PLATELET FRACTION (test 5.6 % 0.0-10.8 N code = IPF) MEAN PLATELET VOLUME (test code = 10.8 fl 9.1-12.7 N MPV) NEUTROPHIL % (test code = NT%) 72.2 % 56.5-79.4 N LYMPHOCYTE % (test code = LY%) 18.5 % 14.3-34.3 N MONOCYTE % (test code = MO%) 7.2 % 5.1-10.4 N EOSINOPHIL % (test code = EO%) 0.6 % 0.1-3.0 N BASOPHIL % (test code = BA%) 0.5 % 0.1-1.0 N NEUTROPHIL # (test code = NT#) 6.0 K/mm3 LYMPHOCYTE # (test code = LY#) 1.5 K/mm3 MONOCYTE # (test code = MO#) 0.6 K/mm3 EOSINOPHIL # (test code = EO#) 0.05 K/mm3 BASOPHIL # (test code = BA#) 0.0 K/mm3 RBC MORPHOLOGY REQUIRED (test code NORMAL NORMAL = RBCM) PLATELET MORPHOLOGY REQUIRED (test NORMAL NORMAL code = PLTMR) COVID 19 Asymptomatic IH [id number] 13:06:00 Test Item Value Reference Range Interpretation Comments COVID 19 NEGATIVE NEGATIVE This test has b een Asymptomatic IH AG authorize d only for the (test code = detection ofpro teins from COVNONPUIAG) SARS-CoV-2, not for any other viruses orpathogens. Ne gative results should be treated as presumptive andconfirmed wi th a molecular assay , if necessary for patientmanageme nt. Negative result s do not rule out COVID- 19 andshould not b e used as the sole basis for treatment orpat ient management deci sions, including infec tion controldecision s. Negative result s should be considered i n thecontext of a patient's recent exposure s, history and thepresence of clinical signs and symptoms consis tent withCOVID-19. T his test has not been FD A cleared or approved; th e test hasbeen authori jelani by FDA under an Emerge ncy Use Authorization(E UA) for use by laborato anastasia certified under the CLIA thatmeet the re quirements to perform mode rate, high or waivedcomple xity tests. This taiwo t is authorized for use at thePoint of Car e (POC), i.e., in patien t care settingsoperati ng under a CLIA Certificat e of Waiver, Certifi fabienne ofCompliance, o r Certificate of Accreditation. This test is only authori zed for the duration of thedeclaration that circumstances e xist justifying theauthorizatio n of emergency use o f in vitro diagnostic test sfor detection and/o r diagnosis of CO VID-19 under Tlqnmcd65 4(b)(1) of the Act, 21 U.S .C. 360bbb-3(b)(1), unless theauthorizatio n is terminated or r evoked sooner. - CTA CHEST FOR [id number] 14:49:00 [facility] : 1995 Sex: F Patient Name: UMESH VORA Unit No: [id number] EXAMS: CPT CODE: [id number] [place] [address] CT SCAN OF THE CHEST WITH CONTRAST (CTPA): DATE: April 30, 2020 COMPARISON: None CLINICAL HISTORY:, chest pain, shortness of breath One or more of the following dose techniques were utilized; automated exposure control, adjustment of the mA and/or kV according to patient size, and/or uti lization of iterative reconstruction technique. DLP: 366.11 mGy-cm. TECHNIQUE: Sequential scanning of the chest as a PE protocol was performed with Isovue 300 IV. Sagittal and coronal reformatted images were obtained as well as right and left oblique MIPS images of the pulmonary vasculature were obtained. 3D MIP images of the pulmonary vasculature were processed. FINDINGS: The pulmonary arteries are opacified and demonstrate no definite filling defects to suggest pulmonary emboli. No aortic dissection is seen. The lung parenchyma is unremarkable. No effusions are present. The heart and mediastinal structures are within normal limits. Visualized osseous structures demonstrate no acute abnormalities. The visualized upper abdomen and lower neck are unremarkable. IMPRESSION: No pulmonary emboli identified. No significant abnormalities noted. at 1449 Reported and signed by: Mariam Israel MD CC: Chino Gordon MD; Susannah Wynne MD Technologist: Crystal Chava, RT, CT CTDI: 13.32 DLP: 366.11 Trnscrbd D/ (1449) Mp [facility] NAME: UMESH VORA Radiology Department PHYS: Susannah Blair MD [address] : 1995 AGE: 24 SEX: F [place] [address] LOC: .ERS PHONE #: [phone] EXAM DATE: 04/30/2020 STATUS: REG ER FAX #: [phone] RAD NO: Page 1 Signed Report 1 Patient Name: UMESH VORA Unit No: [id number] EXAMS: CPT CODE: [id number] [place] [address] (Continued) Orig Print D/T: S: 04/30/2020 (1452) [facility] NAME: UMESH VORA Radiology Department PHYS: Susannah Blair MD [address] : 1995 AGE: 24 SEX: F [place] [address] LOC: .ERS PHONE #: [phone] EXAM DATE: 04/30/2020 STATUS: REG ER FAX #: [phone] RAD NO: Page 2 Signed Report 1Coronavirus 2019 nCoV [id number] 12:41:00 Test Item Value Reference Range Interpretation Comments Coronavirus 2019 nCoV Negative Negative RESUL TS CALLED TO READ Bedside (test code = BACK & CONFIRMED? BY [id number]) Z.LAB.GA 04/30 1241 This result quintana s not rule out co-inf ections with otherpatho gens. * False negative results may occur if a specimen isimproperly co llected, transported or handled. False negativer esults may also occur if amplification i nhibitors arepresent in t he specimen or if inadequate leve ls of virusesare pres ent in the specimen. * As with any molecular t est, if the virus mutat es in thetarget regio n, COVID-19 may no t be detected or may bedetected less predictably.TAIWO T PERFORMED UNDER AN EMERGENCY USE AUTHORIZATION F [facility] COMPREHENSIVE METABOLIC [id number] 12:25:00 Test Item Value Reference Range Interpretation Comments SODIUM (test code = NA) 134 mEq/L 135-145 L POTASSIUM (test code = K) 3.7 mEq/L 3.5-5.0 N CHLORIDE (test code = CL) 102 mEq/L 100-115 N CARBON DIOXIDE (test code = CO2) 24 mEq/L 22-31 N ANION GAP (test code = GAP) 12.20 10-20 N GLUCOSE (test code = GLU) 93 mg/dL 65-110 N BLOOD UREA NITROGEN (test code = 8 mg/dL 7-18 N BUN) GLOMERULAR FILTRATION RATE (test 149 ml/min >60 N code = GFR) CREATININE (test code = CREAT) 0.5 mg/dL 0.5-1.0 N TOTAL PROTEIN (test code = PROT) 7.1 gm/dL 6.3-8.2 N ALBUMIN (test code = ALB) 2.6 gm/dL 3.4-4.8 L CALCIUM (test code = CA) 8.5 mg/dL 8.4-10.2 N BILIRUBIN TOTAL (test code = BILT) 0.2 mg/dL 0.2-1.0 N SGOT/AST (test code = AST) 12 units/L 15-37 L SGPT/ALT (test code = ALT) 19 units/L 12-78 N ALKALINE PHOSPHATASE TOTAL (test 85 units/L 46-116 N code = ALKP) CREATINE KINASE (CK)2020-04-30 12:25:00 Test Item Value Reference Range Interpretation Comments CREATINE KINASE (CK) (test code = 25 Units/L 26-192 L CK) [id number] 12:25:00 Test Item Value Reference Range Interpretation Comments TROPONIN-I (test code = TROPI) <0.017 ng/mL <0.056 N CBC W/AUTO [id number] 12:08:00 Test Item Value Reference Range Interpretation Comments WHITE BLOOD CELL (test code = WBC) 9.8 K/mm3 6.6-12.1 N RED BLOOD CELL (test code = RBC) 3.63 M/mm3 3.45-5.01 N HEMOGLOBIN (test code = HGB) 10.8 g/dL 10.7-13.9 N HEMATOCRIT (test code = HCT) 33.4 % 32.1-42.1 N MEAN CELL VOLUME (test code = MCV) 92 fL 84.1-94.8 N MEAN CELL HGB (test code = MCH) 29.8 pg 27-35 N MEAN CELL HGB CONCETRATION (test 32.3 gm/dL 32.2-34.1 N code = MCHC) RED CELL DISTRIBUTION WIDTH (test 14.0 % 12.4-16.5 N code = RDW) PLATELET COUNT (test code = PLT) 279 K/mm3 133-385 N MEAN PLATELET VOLUME (test code = 10.1 fl 9.1-12.7 N MPV) NEUTROPHIL % (test code = NT%) 73.9 % 56.5-79.4 N LYMPHOCYTE % (test code = LY%) 14.1 % 14.3-34.3 L MONOCYTE % (test code = MO%) 8.5 % 5.1-10.4 N EOSINOPHIL % (test code = EO%) 0.7 % 0.1-3.0 N BASOPHIL % (test code = BA%) 0.4 % 0.1-1.0 N NEUTROPHIL # (test code = NT#) 7.2 K/mm3 LYMPHOCYTE # (test code = LY#) 1.4 K/mm3 MONOCYTE # (test code = MO#) 0.8 K/mm3 EOSINOPHIL # (test code = EO#) 0.07 K/mm3 BASOPHIL # (test code = BA#) 0.0 K/mm3 RBC MORPHOLOGY REQUIRED (test code NORMAL NORMAL = RBCM) PLATELET MORPHOLOGY REQUIRED (test NORMAL NORMAL code = PLTMR) UA RFLX MICR CULT IF [id number] 12:06:00 Test Item Value Reference Range Interpretation Comments UA COLOR (test code = COLU) STRAW YELLOW UA APPEARANCE (test code = CLEAR CLEAR APPU) UA GLUCOSE DIPSTICK (test code NEGATIVE NEG = DGLUU) UA BILIRUBIN DIPSTICK (test NEGATIVE NEG code = BILU) UA KETONE DIPSTICK (test code NEGATIVE NEG = KETU) UA SPECIFIC GRAVITY (test code 1.005 1.001-1.035 N = SGU) UA BLOOD DIPSTICK (test code = NEG NEG JESUS) UA PH DIPSTICK (test code = 7.0 5-9 ANDREZ) UA PROTEIN DIPSTICK (test code NEGATIVE NEG = PROU) UA UROBILINIOGEN DIPSTICK NEGATIVE mg/dL NEG (test code = URO) UA NITRITE DIPSTICK (test code NEG NEG = CALLIE) UA LEUKOCYTE ESTERASE DIPSTICK NEG NEG (test code = LEUU) UA WBC (test code = WBCU) 0-2 #/hpf NONE SEEN UA RBC (test code = RBCU) 0-2 #/hpf NONE SEEN UA EPITHELIAL CELLS (test code RARE #/HPF RARE-FEW = EPIU) UA BACTERIA (test code = BACU) RARE /HPF RARE-FEW Indication for culture: Dysuria/FrequencySpecimen Description: CLEAN CATCH- XR CHEST 1 [id number] 11:56:00 [facility] : 1995 Sex: F Patient Name: UMESH VORA Unit No: [id number] EXAMS: CPT CODE: [id number] XR CHEST 1 V [id number]: Single view AP chest. EXAM DATE: 04/30/2020 1146 hours CLINICAL HISTORY: SOB, 33 weeks COMPARISON: None Cardiomediastinal silhouette is within normal limits. The lungs appear free of acute disease. Visualized osseous structures demonstrate no acute abnormalities. IMPRESSION: No evidence of acute cardiopulmonary disease. at 1156 Reported and signed by: Mariam Israel MD CC: Chino Gordon MD; Susannah Wynne MD Technologist: RT Helen Trnscrbd D/ (1156) t.SDR.CER Orig Print D/T: S: 04/30/2020 (1159) [facility] NAME: UEMSH VORA IHSAN Radiology Department PHYS: Susannah Blair MD [address] : 1995 AGE: 24 SEX: Jan [place], [place] [address] LOC: CHERIE PHONE #: [phone] EXAM DATE: 04/30/2020 STATUS: REG ER FAX #: [phone] RAD NO: Page 1 Signed Report- US PREG AFTER [id number] 09:26:00 Patient Name: UMESH VORA Unit No: [id number] EXAMS: CPT CODE: [id number] US PREG AFTER TRI [address] [facility] [address] [place], [place] [address] OBSTETRICAL ULTRASOUND REPORT Pat. Name: UMESH VORA Pat. No: [id number] Study Date: 01/24/2020 7:46am , Age: 02 1995, 24 Pregnancies: 3, Para 1 LMP: 09/04/2019 GA by LMP: 20w2d GA by US: 19w5d GA Selected: 19w5d (From Known E) FLETCHER: 06/14/2020 Referring MD: Chino Mccord M.D. Diesel Dinkey Operator: Karl Avilez RDMS CPT4: [id number] Hist/Ind: Anatomy OB Scan #3 MEASUREMENTS AGEFETAL GROWTH EVALUATION Measurement GA Range Srce %for GA Ratios ----- ---- ------- BPD 4.5 cm 19w4d (75x4h-97r3h) Hadl BPD 43% FL/BPD 0.71 HC 17.3 cm 19w5d (18w1d- 21w3d) Hadl HC 52% FL/AC 0.21 APD 4.9 cm APD HC/AC 1.12 (1.06 - 1.25) TAD 4.9 cm TAD CI 0.76 (0.70 - 0.86) AC 15.4 cm 20w2d (73l5g-85r9q) Hadl AC 63% FL 3.2 cm 19w4d (82r1s-06m0b) Hadl FL 47% HL 3.0 cm 20w0d (11n4j-93l5i) Arnie HL 56% GA for sonogram 19w5d (07u6p-79y8a) Weight Estimate: based on (BPD,HC,AC,FL) Hadlock Weight: 339 gm (290-389) Hadlock : 0lbs, 11oz Cervical Length:4.1 cm Heart Rate: 143 bpm MATERNAL ANATOMY Fibroids LxHxW (cm) 1: 1.6 x 0.8 x 1.2 Loc: Anterior SS Ovaries LxHxW (cm) Right 2.9 x 1.8 x 2.7 Vol: 7.4cc Left 2.8 x 2.2 x 1.9 Vol: 6.1cc - Ovarian Cysts LxHxW (cm) L1: 1.9 x 1.5 x 1.5 Desc: Hemmorhagic CLC CLINICAL SUMMARY Type of Gestation: Herman Intrauterine in variable presentation. size is appropriate forgestational age. growth: [facility] NAME: CHLOE VORAABEL Radiology DepartmentPHYS: RAUL - Chino Mccord [address] : 1995 AGE: 24 SEX: F [place], [place] [address] LOC: CharmaineRAD PHONE #: [phone] EXAM DATE: 01/24/2020 STATUS: REG CLI FAX #: [phone] RAD NO: Page 1 Signed Report (CONTINUED) Patient Name: UMESH VORA Unit No: [id number] EXAMS: CPT CODE: [id number] US PREG AFTER TRI 42963 (Continued) Consistent with normal growth motion and organs seen: heart motion seen body and limb movements seen Four chamber heart observed Left ventricular outflow tract (LVOT) seen Right ventricular outflow tract (RVOT) is seen, although suboptimally Normal intracranial anatomy seen face and nasal bone seen Umbilical cord insertion in fetus seen stomach, Renal Fossa, Bladder and Spine seen Three vessel umbilical cord noted All four extremities observed tone noted abnormalities observed: None seen at this exam abnormalities observed: Difficult to image Placental location: Anterior P lacental maturity : Grade 1 There is no evidence of placenta previa. Uterus and adnexa: No significant abnormality is seen. Fibroid seen Thank you for allowing us to participate in the care of this patient. Frank Rodriguez M.D Electronic Signature 01/24/2020 09:26am at 09 Reported and signed by: Frank Rodriguez MD CC: Chino Gordon MD; Erlinda Rushing NP Technologist: Karl Avilez RDMS Probe: Trnscrbd D/ (925) t.SDR.BF11 Orig Print D/T: S: 01/24/2020 (925) [facility] NAME:VIELKAUMESH Radiology Department PHYS: WES. - Billtami GordonChino [address] : 1995 AGE: 24 SEX: F [place] [address] LOC: CharmaineRAD PHONE #: [phone] EXAM DATE: 01/24/2020 STATUS: REG CLI FAX #: [phone] RAD NO: Page 2 Signed Report Patient Name: Jose VORA No: [id number] EXAMS: CPT CODE: [id number] US PREG AFTER 1ST TRI 49042 (Continued) [facility] NAME: VIELKAUMESH Radiology Department PHYS: WES.Chion Savage [address] : 1995 AGE: 24 SEX: F [place] [address] LOC: CharmaineRAD PHONE #: [phone] EXAM DATE: 01/24/2020 STATUS: MUKESH CARPENTER FAX #: [phone] RAD NO: Page 3 Signed Report- US [id number] 13:50:00 Patient Name: UMESH VORA Unit No: [id number] EXAMS: CPT CODE: [id number] [place] [address] [facility] [address], [place] [address] OBSTETRICAL ULTRASOUND REPORT Pat. Name: UMESH VORA Pat. No: [id number] Study Date: 12/28/2019 11:13am , Age: 02 1995, 24 Pregnancies: 3, Para 1 LMP: UnknownGA Selected: 15w6d (From Known E) FLETCHER: 06/14/2020 Referring MD: ARNIE LYON Diesel Dinkey Operator: Taat Murphy RDMS CPT4: [id number] Admitting MD: ARNIE LYON Hist/Ind: Scan 1: general pelvic pain 16wks Cervical Length:3.5 cm Heart Rate: 151 bpm MATERNAL ANATOMY Ovaries LxHxW (cm) Right 4.0 x 2.0 x 2.5 Vol: 10.5cc Left 3.3 x 2.3 x 3.6 Vol: 14.3cc Ovarian Cysts LxHxW (cm) L1: 1.8 x 1.6 x 1.3 Desc: Simple CLINICAL SUMMARY Type of Gestation: Herman Intrauterine in transverse presentation. motion and organs seen: body and limb movements o bserved tone noted abnormalities observed: None seen at this exam Limited OB exam Placental location: Anterior Placental maturity : Grade 0 There is no evidence of placenta previa. Uterus and adnexa: No significant abnormality is seen. A follow-up anatomy scan can be obtained at 18-22 weeks. Thank you for allowing us to participate in the care of this patient. Frank Rodriguez M.D Electronic Signature 12/28/2019 01:50pm [facility] NAME: UMESH VORA Radiology Department PHYS: Stoney Sharif MD [address] : 1995 AGE: 24 SEX: F [place], [place] [address] LOC: CharmaineERS PHONE #: [phone] EXAM DATE: 12/28/2019 STATUS: REG ER FAX #: [phone] RAD NO: Page 1 Signed Report (CONTINUED) Patient Name: UMESH VORA Unit No: [id number] EXAMS: CPT CODE: [id number] [place] [address] (Continued) at 1350 Reported and signed by: Frank Rodriguez MD CC: Chino Gordon MD; Stoney Pastrana MD Technologist: Tata Murphy RDMS Probe: Trnscrbd D/ (1350) t.SDR.BF11 Orig Print D/T: S: 12/28/2019 (1350) [facility] NAME: UMESH VORA Radiology Department PHYS: Stoney Sharif MD [address] : 1995 AGE:24 SEX: F [place] [address] LOC: CharmaineERS PHONE #: [phone] EXAM DATE: 12/28/2019 STATUS: REG ER FAX #: [phone] RAD NO: Page 2 Signed Report Patient Name: UMESH VORA Unit No: [id number] EXAMS: CPT CODE: [id number] [place] L[place] [address] (Continued) [facility] NAME: UMESH VORA Radiology Department PHYS: Stoney Sharif MD [address] :1995 AGE: 24 SEX: F [place] [address] LOC: Jan.ERS PHONE #: [phone] EXAM DATE: 12/28/2019 STATUS: REG ER FAX #: [phone] RAD NO: Page 3 Signed ReportPROTHROMBIN [id number] 11:04:00 Test Item Value Reference Range Interpretation Comments PROTHROMBIN TIME PATIENT (test code 12.4 secs 10.4-12.4 N = PTP) IS PATIENT ON ANTICOAGULANTS ? nINTERNATIONAL NORMAL [id number] 11:04:00 Test Item Value Reference Range Interpretation Comments INTERNATIONAL NORMAL 1.15 The INR is to be used RATIO (test code = INR) only for monitoring oral anticoagulantth erapy. INDICATION INR VALUE 1. Prophylaxis inc luding high risk surge ry 2.0 - 2.52. Deep veno us thrombosis. Pul monary embolism. Atria l fibrillation or bioprosthetic h eart valves 2.0 - 3. 03. Mechanical hear t valves or recurrent sy stemic embolism. 3.0 - 3.5 IS PATIENT ON ANTICOAGULANTS ? nTHROMBOPLASTIN TIME [id number] 11:04:00 Test Item Value Reference Range Interpretation Comments THROMBOPLASTIN TIME PARTIAL (test 30.2 secs 22-38 N code = PTT) IS PATIENT ON ANTICOAGULANTS ? nD-DIMER [id number] 11:04:00 Test Item Value Reference Range Interpretation Comments D-DIMER QUANT 220 ng/mLDDU <255 Reference Ran ge in (test code = : <570 DDIMER) ng/ml A positive test d oes not provide a defin itive diagnosis ofDVT and indicates the n eed for follow up clini leonardo studies. The pr edictive value of a nega tive test is 98% for rulingout DVT. IS PATIENT ON ANTICOAGULANTS ? nCHEMISTRY 7 [id number] 10:32:00 Test Item Value Reference Range Interpretation Comments SODIUM (test code = NA) 134 mEq/L 135-145 L POTASSIUM (test code = K) 3.4 mEq/L 3.5-5.0 L CHLORIDE (test code = CL) 98 mEq/L 100-115 L CARBON DIOXIDE (test code = CO2) 24 mEq/L 22-31 N ANION GAP (test code = GAP) 15.10 10-20 N GLUCOSE (test code = GLU) 130 mg/dL 65-110 H BLOOD UREA NITROGEN (test code = 9 mg/dL 7-18 N BUN) GLOMERULAR FILTRATION RATE (test 149 ml/min >60 N code = GFR) CREATININE (test code = CREAT) 0.5 mg/dL 0.5-1.0 N CALCIUM (test code = CA) 8.5 mg/dL 8.4-10.2 N UA RFLX MICR CULT IF [id number] 10:07:00 Test Item Value Reference Range Interpretation Comments UA COLOR (test code = COLU) YELLOW YELLOW UA APPEARANCE (test code = CLEAR CLEAR APPU) UA GLUCOSE DIPSTICK (test code NEGATIVE NEG = DGLUU) UA BILIRUBIN DIPSTICK (test NEGATIVE NEG code = BILU) UA KETONE DIPSTICK (test code NEGATIVE NEG = KETU) UA SPECIFIC GRAVITY (test code 1.020 1.001-1.035 N = SGU) UA BLOOD DIPSTICK (test code = NEG NEG JESUS) UA PH DIPSTICK (test code = 6.0 5-9 ANDREZ) UA PROTEIN DIPSTICK (test code NEGATIVE NEG = PROU) UA UROBILINIOGEN DIPSTICK NEGATIVE mg/dL NEG (test code = URO) UA NITRITE DIPSTICK (test code NEG NEG = CALLIE) UA LEUKOCYTE ESTERASE DIPSTICK TRACE NEG A (test code = LEUU) UA WBC (test code = WBCU) 3-5 #/hpf NONE SEEN A UA RBC (test code = RBCU) 0-2 #/hpf NONE SEEN UA EPITHELIAL CELLS (test code RARE #/HPF RARE-FEW = EPIU) UA MUCUS (test code = MUCU) RARE NONE SEEN Indication for culture: Suprapubic PainCBC W/AUTO [id number] 10:04:00 Test Item Value Reference Range Interpretation Comments WHITE BLOOD CELL (test code = WBC) 8.7 K/mm3 6.6-12.1 N RED BLOOD CELL (test code = RBC) 3.90 M/mm3 3.45-5.01 N HEMOGLOBIN (test code = HGB) 12.4 g/dL 10.7-13.9 N HEMATOCRIT (test code = HCT) 36.8 % 32.1-42.1 N MEAN CELL VOLUME (test code = MCV) 94 fL 84.1-94.8 N MEAN CELL HGB (test code = MCH) 31.8 pg 27-35 N MEAN CELL HGB CONCETRATION (test 33.7 gm/dL 32.2-34.1 N code = MCHC) RED CELL DISTRIBUTION WIDTH (test 13.2 % 12.4-16.5 N code = RDW) PLATELET COUNT (test code = PLT) 292 K/mm3 133-385 N MEAN PLATELET VOLUME (test code = 9.8 fl 9.1-12.7 N MPV) NEUTROPHIL % (test code = NT%) 74.0 % 56.5-79.4 N LYMPHOCYTE % (test code = LY%) 17.5 % 14.3-34.3 N MONOCYTE % (test code = MO%) 6.2 % 5.1-10.4 N EOSINOPHIL % (test code = EO%) 1.1 % 0.1-3.0 N BASOPHIL % (test code = BA%) 0.5 % 0.1-1.0 N NEUTROPHIL # (test code = NT#) 6.5 K/mm3 LYMPHOCYTE # (test code = LY#) 1.5 K/mm3 MONOCYTE # (test code = MO#) 0.5 K/mm3 EOSINOPHIL # (test code = EO#) 0.10 K/mm3 BASOPHIL # (test code = BA#) 0.0 K/mm3 RBC MORPHOLOGY REQUIRED (test code NORMAL NORMAL = RBCM) PLATELET MORPHOLOGY REQUIRED (test NORMAL NORMAL code = PLTMR) GALL [id number] 15:46:00 RUN DATE: 12/10/19 [facility] PAGE 1 RUN TIME: 1721 Specimen Inquiry RUN USER: INTERFACE -PATIENT: UMESH VORA LOC: [place] U #: [id number] AGE/SX: 24/F ROOM: [facility] RE12/07/19REG DR: Ramesh Parisi : 89 BED: A DIS: 12/08/19 STATUS: DIS [place]ño TLOC: SPEC #: [id number] RECD: 12/07/19 STATUS: JAVIER RANDALL #: [id number] ELLEN: 12/07/19- SUBM DR: Ramesh Parisi MD ENTERED: 12/07/19 SP TYPE: JOSE LIU DR: ORDERED: LEVEL III SURGI CODES: [id number] - GALLBLADDER, NO PROCEDURES: LEVEL III SURGI (Incomplete) TISSUES: GALLBLADDER, NOS - GALLBLADDER CLINICAL HISTORY 24 year old, symptomatic cholelithiasis in (wpd) FINAL DIAGNOSIS Gallbladder, cholecystectomy: - chronic cholecystitis - cholesterolosis - cholelithiasis CPT code(s): 87821 cds/wpd GROSS DESCRIPTION ANATOMIC SOURCE OF TISSUE (per Requisition): Gallbladder The specimen is received in a formalin-filled container, labeled with the patient's name and designated "gallbladder". The specimen consists of an 8.5 x 3.0 x 3.0 cm gallbladder with cystic duct. No lymph node is identified. The serosa is pink-purple to green and dull. The specimen contains viscus, green-yellow bile. A 1.5 cm calculus is identified. The mucosa is diego-green with yellow stippling. The wall thickness averages 0.1 cm. Irrigation Installation Specialist sections are submitted in A1, to include cystic duct margin, fundus of gallbladder and body of gallbladder. nz/wpd 12/07/19 Signed Loki Amaral Connor 12/10/19 1546 END OF REPORT COVID 19 Asymptomatic IH [id number] 10:18:00 Test Item Value Reference Range Interpretation Comments COVID 19 NEGATIVE NEGATIVE This test has b een Asymptomatic IH AG authorize d only for the (test code = detection ofpro teins from COVNONPUIAG) SARS-CoV-2, not for any other viruses orpathogens. Ne gative results should be treated as presumptive andconfirmed wi th a molecular assay , if necessary for patientmanageme nt. Negative result s do not rule out COVID- 19 andshould not b e used as the sole basis for treatment orpat ient management deci sions, including infec tion controldecision s. Negative result s should be considered i n thecontext of a patient's recent exposure s, history and thepresence of clinical signs and symptoms consis tent withCOVID-19. T his test has not been FD A cleared or approved; th e test hasbeen authori jelani by FDA under an Emerge ncy Use Authorization(E UA) for use by somato anastasia certified under the CLIA thatmeet the re quirements to perform mode rate, high or waivedcomple xity tests. This taiwo t is authorized for use at thePoint of Car e (POC), i.e., in patien t care settingsoperati ng under a CLIA Certificat e of Waiver, Certifi fabienne ofCompliance, o r Certificate of Accreditation. This test is only authori jelani for the duration of thedeclaration that circumstances e xist justifying theauthorizatio n of emergency use o f in vitro diagnostic test sfor detection and/o r diagnosis of CO VID-19 under Wpzktwz68 4(b)(1) of the Act, 21 U.S .C. 360bbb-3(b)(1), unless theauthorizatio n is terminated or r evoked sooner. COMPREHENSIVE METABOLIC [id number] 00:47:00 Test Item Value Reference Range Interpretation Comments SODIUM (test code = NA) 135 mEq/L 135-145 N POTASSIUM (test code = K) 3.9 mEq/L 3.5-5.0 N CHLORIDE (test code = CL) 101 mEq/L 100-115 N CARBON DIOXIDE (test code = CO2) 24 mEq/L 22-31 N ANION GAP (test code = GAP) 13.60 10-20 N GLUCOSE (test code = GLU) 102 mg/dL 65-110 N BLOOD UREA NITROGEN (test code = 9 mg/dL 7-18 N BUN) GLOMERULAR FILTRATION RATE (test 121 ml/min >60 N code = GFR) CREATININE (test code = CREAT) 0.6 mg/dL 0.5-1.0 N TOTAL PROTEIN (test code = PROT) 6.9 gm/dL 6.3-8.2 N ALBUMIN (test code = ALB) 3.2 gm/dL 3.4-4.8 L CALCIUM (test code = CA) 8.3 mg/dL 8.4-10.2 L BILIRUBIN TOTAL (test code = BILT) 0.2 mg/dL 0.2-1.0 N SGOT/AST (test code = AST) 12 units/L 15-37 L SGPT/ALT (test code = ALT) 14 units/L 12-78 N ALKALINE PHOSPHATASE TOTAL (test 54 units/L 46-116 N code = ALKP) [id number] 00:47:00 Test Item Value Reference Range Interpretation Comments LIPASE (test code = LIP) 99 units/L 73-393 N CBC W/AUTO [id number] 00:19:00 Test Item Value Reference Range Interpretation Comments WHITE BLOOD CELL (test code = WBC) 9.6 K/mm3 6.6-12.1 N RED BLOOD CELL (test code = RBC) 3.95 M/mm3 3.45-5.01 N HEMOGLOBIN (test code = HGB) 12.2 g/dL 10.7-13.9 N HEMATOCRIT (test code = HCT) 36.8 % 32.1-42.1 N MEAN CELL VOLUME (test code = MCV) 93 fL 84.1-94.8 N MEAN CELL HGB (test code = MCH) 30.9 pg 27-35 N MEAN CELL HGB CONCETRATION (test 33.2 gm/dL 32.2-34.1 N code = MCHC) RED CELL DISTRIBUTION WIDTH (test 13.0 % 12.4-16.5 N code = RDW) PLATELET COUNT (test code = PLT) 309 K/mm3 133-385 N MEAN PLATELET VOLUME (test code = 10.5 fl 9.1-12.7 N MPV) NEUTROPHIL % (test code = NT%) 64.6 % 56.5-79.4 N LYMPHOCYTE % (test code = LY%) 24.8 % 14.3-34.3 N MONOCYTE % (test code = MO%) 8.4 % 5.1-10.4 N EOSINOPHIL % (test code = EO%) 1.2 % 0.1-3.0 N BASOPHIL % (test code = BA%) 0.5 % 0.1-1.0 N NEUTROPHIL # (test code = NT#) 6.2 K/mm3 LYMPHOCYTE # (test code = LY#) 2.4 K/mm3 MONOCYTE # (test code = MO#) 0.8 K/mm3 EOSINOPHIL # (test code = EO#) 0.12 K/mm3 BASOPHIL # (test code = BA#) 0.1 K/mm3 RBC MORPHOLOGY REQUIRED (test code NORMAL NORMAL = RBCM) PLATELET MORPHOLOGY REQUIRED (test NORMAL NORMAL code = PLTMR) - DUP AB/PEL/SC/[id number] 06:04:00 Patient Name: UMESH VORA Unit No: [id number] EXAMS: CPT CODE: [id number] DUP AB/PEL/SC/LTD 25918 EXAM: US, US REG 1ST TRIMTR: 12/06/2019, 0511 hours EXAM: US, DUP AB/PEL/SC LTD: 12/06/2019, 0511 hoursClinical Indication: . Pelvic pain. Back pain. Comparison: None. TECHNIQUE: Technique: Grayscale, color and Doppler transabdominal imaging of the pelvis was performed with standard technique. FINDINGS: UTERUS: There is an anteverted uterus measuring 14.5 x 7.4 x 9.2 cm in size. An intrauterine gestational sac is noted containing fetus corresponding to gestational age of 12 weeks 5 days with CRL measurement of 6.32 cm heart rate is 1 62 bpm. No subchorionic bleed seen. OVARIES: RIGHT: 3.3 x 1.8 x 1.5 cm. LEFT: 3.4 x 2.0 x 2.0 cm. 2.3 x 2.3 x 1.6 cm hypoechoic area in the left ovary, probably corpus luteum cyst There are no adnexal masses. The limited Doppler images show normal bilateral ovarian blood flow. OTHER FINDINGS: No free fluid in the pelvic cul-de-sac. If there is further concern, followup pelvic sonography or MRI of the pelvis may be performed. IMPRESSION: 1. Single viable intrauterine gestation with sonographic gestational age of 12 weeks 5 days. 2. Corpus luteum cyst in the left ovary. SL: JSYED-H at 0604 Reported and signed by: J Carlos Nguyen M.D. CC: Chino Gordon MD Technologist: Gabriella Quesada RDMS, PAULETTET Probe: Trnscrbd D/ (0604) [id number] Orig Print D/T: S: 12/06/2019 (0607) [facility] NAME: SERGE VORAL Radiology Department PHYS: AHMET LyonArniekaruna Spears [address] : 1995 AGE: 24 SEX: F [place], [place] [address] LOC: CHERIE PHONE#: [phone] EXAM DATE: 12/06/2019 STATUS: REG ER FAX #: [phone] RAD NO: Page 1 Signed Report Patient Name: UMESH VORA Unit No: [id number] EXAMS: CPT CODE: [id number] DUP AB/PEL/SC/LTD 82282 (Continued) [facility] NAME: UMESH VORA Radiology Department PHYS: Arnie Carpenter [address] : 1995 AGE: 24 SEX: F [place], [place] [address] LOC: F.ERS PHONE #: [phone] EXAM DATE: 12/06/2019 STATUS: REG ER FAX #: [phone] RAD NO:Page 2 Signed Report- US PREG EVAL 1ST [id number] 06:04:00 Patient Name: UMESH VORA Unit No: [id number] EXAMS: CPT CODE: [id number] US PREG EVAL 1ST TRIMTR 06474 EXAM: US, US REG 1ST TRIMTR: 12/06/2019, 0511 hours EXAM: US, DUP AB/PEL/SC LTD: 12/06/2019, 0511hours Clinical Indication: . Pelvic pain. Back pain. Comparison: None. TECHNIQUE: Technique: Grayscale, color and Doppler transabdominal imaging of the pelvis was performed with standard techni que. FINDINGS: UTERUS: There is an anteverted uterus measuring 14.5 x 7.4 x 9.2 cm in size. An intrauterine gestational sac is noted containing fetus corresponding to gestational age of 12 weeks 5 dayswith CRL measurement of 6.32 cm heart rate is 1 62 bpm. No subchorionic bleed seen. OVARIES: RIGHT: 3.3 x 1.8 x 1.5 cm. LEFT: 3.4 x 2.0 x 2.0 cm. 2.3 x 2.3 x 1.6 cm hypoechoic area in the left ovary, probably corpus luteum cyst There are no adnexal masses. The limited Doppler images show normal bilateral ovarian blood flow. OTHER FINDINGS: No free fluid in the pelvic cul-de-sac. If there is further concern, followup pelvic sonography or MRI of the pelvis may be performed. IMPRESSION: 1. Single viable intrauterine gestation with sonographic gestational age of 12 weeks 5 days. 2. Corpus luteum cyst in the left ovary. SL: SHANTELL at 0604 Reported and signed by: J Carlos Nguyen M.D. CC: Chino Gordon MD Technologist: Gabriella Quesada RDMS, RVT Probe: Trnscrbd D/ (0604) [email or web address] Orig Print D/T: S: 12/06/2019 (0607) [facility] NAME: UMESH VORA Radiology Department PHYS: Arnie Carpenter [address] : 1995 AGE: 24 SEX: F [place] [address] LOC: CharmaineERS PHONE #: [phone] EXAM DATE: 12/06/2019 STATUS: REG ER FAX #: [phone] RAD NO: Page 1 Signed Report Patient Name: UMESH VORA Unit No: [id number] EXAMS: CPT CODE: [id number] US PREG EVAL 1ST TRIMTR 68134 (Continued) [facility] NAME: UMESH VORA Radiology Department PHYS: MANNIEANTON Arnie Lyon [address] : 1995 AGE: 24 SEX: F [place] [address] LOC: CharmaineERS PHONE #: [phone] EXAM DATE: 12/06/2019 STATUS: REG ER FAX #: [phone] RAD NO: Page 2 Signed Report- US ABDOMEN COMPLETE 2019-12-06 05:58:00 Patient Name: UMESH VORA Unit No: [id number] EXAMS: CPT CODE: [id number] US ABDOMEN COMPLETE 98540YOGG: US, US ABDOMEN COMPLETE: 12/06/2019, 0440 hours Clinical Indication: Bilateral flank, back and epigastric pain. History of UTI. The expected. Comparison: None. TECHNIQUE: Grayscale and limited color sonographic evaluation of the abdomen was performed with standard technique. FINDINGS: LIVER: Thevisualized liver shows normal contour. Liver is mildly enlarged at 17.4 cm. There is a 5.7 x 4.0 x 5.5 cm subtle heterogenous area in the left hepatic lobe/caudate lobe. The portal vein region appears u nremarkable. BILE DUCTS: The intrahepatic and extrahepatic bile ducts are not dilated with the common bile duct measuring 3 mm. There are no definite ductal stones or wall thickening noted. The distal common bile duct is not well seen. GALLBLADDER: There are gallstones. Normal gallbladder wall thickness at 3 mm. No pericholecystic fluid seen. Positive sonographic Tang's sign. PANCREAS: The visualized pancreas appears unremarkable. SPLEEN: The spleen is unremarkable and measures 10.9 cm. KIDNEYS: The right kidney measures 11.0 x 4.1 x 5.3 cm. Cortical thickness is 0.9 cm The left kidney measures 10.0 x 5.0 x 4.3 cm. Cortical thickness is 0.8 cm There is normal renal contour and morphology, with normal parenchymal echotexture. There is no hydronephrosis. AORTA AND INFERIOR VENA CAVA: The visualized abdominal aorta and inferior vena cava appear unremarkable. ASCITES: There is no visualized abdominal ascites. Appendix is not visualized in current study. [facility] NAME: UMESH VORA Radiology Department PHYS: GUERITA.Jett - Arnie Lyon [address] : 1995 AGE: 24 SEX: F [place], [place] [address] LOC: CHERIE PHONE #: [phone] EXAM DATE: 12/06/2019 STATUS: REG ER FAX #: [phone] RAD NO: Page 1 Signed Report (CONTINUED) Patient Name: UMESH VORA Unit No: [id number] EXAMS: CPT CODE: [id number] US ABDOMEN COMPLETE 07694 (Continued) The visualized urinary bladder is unremarkable. Bilateral ureteral jets are noted. IMPRESSION: 1. Gallstones. Positive sonographic Tang's sign. No pericholecystic fluid or abnormal gallbladder wall thickening seen. Findings are nonspecific. If indicated, nuclear medicine HIDA scan may be beneficial. 2. Mild hepatomegaly. There is a 5.7 x 4.0 x 5.5 cm subtle heterogenous area in the left hepatic lobe/caudate lobe. Mass is not excluded. If indicated, MRI can be performed for further assessment. SL: JSYED-H at 0558 Reported and signed by: J Carlos Nguyen M.D. CC: Chino Gordon MD Technologist: Gabriella Quesada RDMS, RVT Probe: Trnscrbd D/ (0558) [email or web address] Orig Print D/T: S: 12/06/2019 (0601) [facility] NAME: UMESH VORA Radiology Department PHYS: AHMET LyonArnie Erikatheodore [address] : 1995 AGE: 24 SEX: F [place] [address] LOC: CharmaineERS PHONE #: [phone] EXAM DATE: 12/06/2019 STATUS: REG ER FAX #: [phone] RAD NO: Page 2 Signed Report Patient Name: UMESH VORA UnitNo: [id number] EXAMS: CPT CODE: [id number] US ABDOMEN COMPLETE 77536 (Continued) [facility] NAME: CHLOE VORAABEL Radiology Department PHYS: AHMET LyonArnie Erikatheodore [address] : 1995 AGE: 24 SEX: F [place] [address] LOC: CharmaineERS PHONE #: [phone] EXAM DATE: 12/06/2019 STATUS: REG ER FAX #: [phone] RAD NO: Page 3 Signed ReportUA RFLX MICR CULT IF INDICATED 2019-12-06 04:08:00 Test Item Value Reference Range Interpretation Comments UA COLOR (test code = COLU) YELLOW YELLOW UA APPEARANCE (test code = CLEAR CLEAR APPU) UA GLUCOSE DIPSTICK (test code NEGATIVE NEG = DGLUU) UA BILIRUBIN DIPSTICK (test NEGATIVE NEG code = BILU) UA KETONE DIPSTICK (test code NEGATIVE NEG = KETU) UA SPECIFIC GRAVITY (test code 1.006 1.001-1.035 N = SGU) UA BLOOD DIPSTICK (test code = NEG NEG JESUS) UA PH DIPSTICK (test code = 6.0 5-9 ANDREZ) UA PROTEIN DIPSTICK (test code NEGATIVE NEG = PROU) UA UROBILINIOGEN DIPSTICK NEGATIVE mg/dL NEG (test code = URO) UA NITRITE DIPSTICK (test code NEG NEG = CALLIE) UA LEUKOCYTE ESTERASE DIPSTICK NEG NEG (test code = LEUU) UA WBC (test code = WBCU) 0-2 #/hpf NONE SEEN UA RBC (test code = RBCU) 0-2 #/hpf NONE SEEN UA EPITHELIAL CELLS (test code RARE #/HPF RARE-FEW = EPIU) UA BACTERIA (test code = BACU) RARE /HPF RARE-FEW UA MUCUS (test code = MUCU) RARE NONE SEEN Indication for culture: Dysuria/FrequencyCBC W/AUTO [id number] 04:06:00 Test Item Value Reference Range Interpretation Comments WHITE BLOOD CELL (test code = WBC) 10.3 K/mm3 6.6-12.1 N RED BLOOD CELL (test code = RBC) 4.06 M/mm3 3.45-5.01 N HEMOGLOBIN (test code = HGB) 12.9 g/dL 10.7-13.9 N HEMATOCRIT (test code = HCT) 37.3 % 32.1-42.1 N MEAN CELL VOLUME (test code = MCV) 92 fL 84.1-94.8 N MEAN CELL HGB (test code = MCH) 31.8 pg 27-35 N MEAN CELL HGB CONCETRATION (test 34.6 gm/dL 32.2-34.1 H code = MCHC) RED CELL DISTRIBUTION WIDTH (test 12.8 % 12.4-16.5 N code = RDW) PLATELET COUNT (test code = PLT) 317 K/mm3 133-385 N MEAN PLATELET VOLUME (test code = 10.0 fl 9.1-12.7 N MPV) NEUTROPHIL % (test code = NT%) 68.5 % 56.5-79.4 N LYMPHOCYTE % (test code = LY%) 23.0 % 14.3-34.3 N MONOCYTE % (test code = MO%) 6.4 % 5.1-10.4 N EOSINOPHIL % (test code = EO%) 1.2 % 0.1-3.0 N BASOPHIL % (test code = BA%) 0.3 % 0.1-1.0 N NEUTROPHIL # (test code = NT#) 7.0 K/mm3 LYMPHOCYTE # (test code = LY#) 2.4 K/mm3 MONOCYTE # (test code = MO#) 0.7 K/mm3 EOSINOPHIL # (test code = EO#) 0.12 K/mm3 BASOPHIL # (test code = BA#) 0.0 K/mm3 RBC MORPHOLOGY REQUIRED (test code NORMAL NORMAL = RBCM) PLATELET MORPHOLOGY REQUIRED (test NORMAL NORMAL code = PLTMR) COMPREHENSIVE METABOLIC [id number] 04:05:00 Test Item Value Reference Range Interpretation Comments SODIUM (test code = NA) 135 mEq/L 135-145 N POTASSIUM (test code = K) 3.8 mEq/L 3.5-5.0 N CHLORIDE (test code = CL) 101 mEq/L 100-115 N CARBON DIOXIDE (test code = CO2) 25 mEq/L 22-31 N ANION GAP (test code = GAP) 12.60 10-20 N GLUCOSE (test code = GLU) 99 mg/dL 65-110 N BLOOD UREA NITROGEN (test code = 7 mg/dL 7-18 N BUN) GLOMERULAR FILTRATION RATE (test 121 ml/min >60 N code = GFR) CREATININE (test code = CREAT) 0.6 mg/dL 0.5-1.0 N TOTAL PROTEIN (test code = PROT) 7.4 gm/dL 6.3-8.2 N ALBUMIN (test code = ALB) 3.5 gm/dL 3.4-4.8 N CALCIUM (test code = CA) 9.0 mg/dL 8.4-10.2 N BILIRUBIN TOTAL (test code = BILT) 0.2 mg/dL 0.2-1.0 N SGOT/AST (test code = AST) 10 units/L 15-37 L SGPT/ALT (test code = ALT) 17 units/L 12-78 N ALKALINE PHOSPHATASE TOTAL (test 58 units/L 46-116 N code = ALKP) [id number] 04:05:00 Test Item Value Reference Range Interpretation Comments LIPASE (test code = LIP) 102 units/L 73-393 N UR HCG [id number] 03:45:00 Test Item Value Reference Range Interpretation Comments UR HCG QUAL (test code = HCGQLU) POSITIVE PRODUCTS OF [id number] 09:28:00 RUN DATE: 12/11/18 [facility] PAGE 1 RUN TIME: 1146 Specimen Inquiry RUN USER: INTERFACE --PATIENT: UMESH DACOSTA [facility] [id number] AGE/SX: 23/F ROOM: RE12/06/18REG DR: Chino Mccord : [birth year] BED: DIS: [facility] [place]: SPEC #: [id number] RECD: 12/06/18 STATUS: SOUT REQ #: [id number] ELLEN: 12/06/18- SUBM DR: Chino Mccord MD ENTERED: 12/06/18 SP TYPE: POC[ OTHR DR: ORDERED: LEVEL IV CODES: [id number] - ENDOMETRIUM, NO PROCEDURES: LEVEL IV (Incomplete) TISSUES: ENDOMETRIUM, NOS - POC CLINICAL HISTORY 23 year old, molar (kr) FINAL DIAGNOSIS Products of conception: - villous changes suggesting partial molar - decidual tissue - p57 immunostain and ploidy study pending on block A4 ADDENDUM PENDING, SPECIMEN IS BEING SENT [facility] CPT code(s): 80974 Pogoseat/DNage dt: 12/11/18 GROSS DESCRIPTION ANATOMIC SOURCEOF TISSUE (per Requisition): Products of conception The specimen is received in a formalin-filled container, labeled with the patient's name and designated "products of conception". The specimen consists of a 12 x 12 x 0.8 cm aggregate of multiple diego-red, soft, and rubbery tissues admixed with clotted blood. There are no identifiable parts or cyst-like structures. Irrigation Installation Specialist sections are submitted labeled A1 through A6. Rackup/kr 12/06/18 @ 1508 MICROSCOPIC DESCRIPTION Placental tissue is present. Some chorionic villi are enlarged, irregular, have circumferential trophoblastic hyperplasia andcentral cisterns compatible with a partial mole. P57 immunostain and ploidy studies will be performed for further evaluation. Pogoseat/DNage dt: 12/11/18 CONTINUED ON NEXT PAGE RUN DATE: 12/11/18 [facility] PAGE 2 RUN TIME: 1146 Specimen Inquiry RUN USER: INTERFACE SPEC #: [id number] PATIENT: UMESH DACOSTA #[id number] (Continued) Signed Loki Amaral 12/11/18 0928 END OF REPORT PRODUCTS OF [id number] 09:28:00 RUN DATE: 12/18/18 [facility] PAGE 1 RUN TIME: 1041 Specimen Inquiry RUN USER: INTERFACE -PATIENT: UMESH DACOSTA LOC: [place] U #: [id number] AGE/SX: 23/F ROOM: RE12/06/18REG DR: Chino Mccord : [birth year] BED: DIS: STATUS: [facility] TLOC: SPEC #: [id number] RECD: 12/06/18 STATUS: JAVIER RE #: [id number] ELLEN: 12/06/18- SUBM DR: Chino Mccord MD ENTERED: 12/06/18 SP TYPE: POC[ OTHR DR: ORDERED: LEVEL IV ADDENDUM FINDINGS Addendum #1 Entered: 12/18/18 The following are the p57 and Ploidy Analysis received from [facility] on December 16, 2018. ADDENDUM FINAL DIAGNOSIS: - COMPATIBLE WITH COMPLETE HYDATIDIFORM MOLE COMMENT: H E stained sections show a population of irregularly shaped chorionic villi with some edema. Trophoblast proliferation is non-polarized and uniformly prominent around the circumference of villi. p57 is negative in villous trophoblastnuclei. Internal-control endometrium stains with p57. The p57 (KIP2) gene (CDKN1C) is strongly paternally imprinted, being expressed from the maternal allele in most cases. Because complete moles contain only paternal genes, complete moles show absence or significantly reduced expression of p57 (KIP2)relative to partial moles or a hydropic abortus which contain both maternal and paternal genes. In normal placentas, partial moles and a hydropic abortus, P57 (KIP2) shows a strong and contiguous nuclear expression in cytotrophoblast and villous mesenchyme, irrespective of the morphology of the villi.In complete moles there is an absence of staining in the cytotrophoblast and villous mesenchyme while the extravillous trophoblast and decidua show strong expression and thus serves as a positive internal control. Ploidy study shows diploid DNA content in villous trophoblast nuclei. 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 IHC AND SPECIAL STAINS: All controls were reviewed and showed appropriate positive andnegative reactivity. FLOW CYTOMETRY ANALYSIS RESULTS: DIPLOID DNA INDEX: 1.00 CONTINUED ON NEXT PAGE RUN DATE: 12/18/18 [facility] PAGE 2 RUN TIME: 1041 Specimen Inquiry RUN USER: INTERFACE ---- --------SPEC #: [id number] PATIENT: CHLOE DACOSTAABEL #[id number] (Continued) ADDENDUM FINDINGS (Continued) Reference Range: Diploid <=1.1 Aneuploid >1.1 S-Phase: 2.15 COMMENTS: A diploid DNA index may be seen with an abortus or complete hydatidiform mole. No triploid population is identified arguing against a partial molar . Correlation with morphologic features is recommended. I acknowledge the above findings. Ron Amaral M.D., Pathologist/ksr December 16, 2018 @ 6230 Addendum Signed Munir,Loki Ryan 12/18/18 1041 (prelim) Munir,Loki Ryan 12/18/18 1041 CODES: [id number] - ENDOMETRIUM, NO PROCEDURES: LEVEL IV (Incomplete) TISSUES: ENDOMETRIUM, NOS - POC CLINICAL HISTORY 23 year old, molar (kr) FINAL DIAGNOSIS Products of conception: - villous changes suggesting partial molar - decidual tissue - p57 immunostain and ploidy study pending on block A4 ADDENDUM PENDING, SPECIMEN IS BEING SENT TO [facility] LABORAT[facility] CPT code(s): 62450 cds/kr dt: 12/11/18 CONTINUED ON NEXT PAGE RUN DATE: 12/18/18 [facility] PAGE 3 RUN TIME: 1041 Specimen Inquiry RUN USER: INTERFACE --------- ---SPEC #: [id number] PATIENT: UMESH DACOSTA #[id number] (Continued) GROSS DESCRIPTION ANATOMIC SOURCE OF TISSUE (per Requisition): Products of conception The specimen is received in a formalin-filled container, labeled withthe patient's name and designated "products of conception". The specimen consists of a 12 x 12 x 0.8cm aggregate of multiple diego-red, soft, and rubbery tissues admixed with clotted blood. There are noidentifiable parts or cyst-like structures. Irrigation Installation Specialist sections are submitted labeled A1 through A6. claritza/ho 12/06/18 @ 1509 MICROSCOPIC DESCRIPTION Placental tissue is present. Some chorionic villi are enlarged, irregular, have circumferential trophoblastic hyperplasia and central cisterns compatible with a partial mole. P57 immunostain and ploidy studies will be performed for further evaluation. dajuan/kr dt: 12/11/18 Signed Loki Amaral Connor 12/11/18 0928 END OF REPORT HCG [id number] 21:00:00 Test Item Value Reference Range Interpretation Comments HCG SERUM (test 64956 INTERPRETATI ON:VALUES BETWEEN code = HCG) 15-20 milliInte rnational units/mL NEED T O BERETESTED WITHIN 48 HOURS . All units for these ranges ar e in milliInternatio nalunits/mL0-1 WK AFTER CONCEP TION 0-50 1-2 WKS AFTER ALEX PTION 40-3002-3 WKS AFTER ALEX PTION 100-1,0003-4 WK S AFTER CONCEPTION 500- 6,0001-2 MONTHS AFTER CONCEPTIO N 5,000-200,0002- 3 MONTHS AFTER CONCEPTION 10,0 00-100,0002ND TRIMESTER 3,000 -50,0003RD TRIMESTER 1,000 -50,000 SPECIMENS WITH AN HCG LEVEL FROM 0-6 milliInternatio nalunits/mL SHOULD BE CONSI DERED NEGATIVE COMPREHENSIVE METABOLIC [id number] 20:03:00 Test Item Value Reference Range Interpretation Comments SODIUM (test code = NA) 137 mEq/L 135-145 N POTASSIUM (test code = K) 3.9 mEq/L 3.5-5.0 N CHLORIDE (test code = CL) 100 mEq/L 100-115 N CARBON DIOXIDE (test code = CO2) 27 mEq/L 22-31 N ANION GAP (test code = GAP) 14.10 10-20 N GLUCOSE (test code = GLU) 83 mg/dL 65-110 N BLOOD UREA NITROGEN (test code = 12 mg/dL 7-18 N BUN) GLOMERULAR FILTRATION RATE (test 122 ml/min >60 N code = GFR) CREATININE (test code = CREAT) 0.6 mg/dL 0.5-1.0 N TOTAL PROTEIN (test code = PROT) 7.4 gm/dL 6.3-8.2 N ALBUMIN (test code = ALB) 3.9 gm/dL 3.4-4.8 N CALCIUM (test code = CA) 8.9 mg/dL 8.4-10.2 N BILIRUBIN TOTAL (test code = BILT) 0.3 mg/dL 0.2-1.0 N SGOT/AST (test code = AST) 11 units/L 15-37 L SGPT/ALT (test code = ALT) 17 units/L 12-78 N ALKALINE PHOSPHATASE TOTAL (test 59 units/L 46-116 N code = ALKP) THYROID STIMULATING [id number] 20:03:00 Test Item Value Reference Range Interpretation Comments THYROID STIMULATING 0.81 0.36-3.74 N Test Per formed in HORMONE (test code = MicroIn ternational Units/mL TSH) CBC W/AUTO [id number] 19:44:00 Test Item Value Reference Range Interpretation Comments WHITE BLOOD CELL (test code = WBC) 10.1 K/mm3 6.6-12.1 N RED BLOOD CELL (test code = RBC) 4.08 M/mm3 3.45-5.01 N HEMOGLOBIN (test code = HGB) 12.4 g/dL 10.7-13.9 N HEMATOCRIT (test code = HCT) 36.3 % 32.1-42.1 N MEAN CELL VOLUME (test code = MCV) 89 fL 84.1-94.8 N MEAN CELL HGB (test code = MCH) 30.4 pg 27-35 N MEAN CELL HGB CONCETRATION (test 34.2 gm/dL 32.2-34.1 H code = MCHC) RED CELL DISTRIBUTION WIDTH (test 12.8 % 12.4-16.5 N code = RDW) PLATELET COUNT (test code = PLT) 315 K/mm3 133-385 N IMMATURE PLATELET FRACTION (test 0.0 % 0.0-10.8 N code = IPF) MEAN PLATELET VOLUME (test code = 10.2 fl 9.1-12.7 N MPV) NEUTROPHIL % (test code = NT%) 66.8 % 56.5-79.4 N LYMPHOCYTE % (test code = LY%) 24.1 % 14.3-34.3 N MONOCYTE % (test code = MO%) 7.4 % 5.1-10.4 N EOSINOPHIL % (test code = EO%) 0.9 % 0.1-3.0 N BASOPHIL % (test code = BA%) 0.5 % 0.1-1.0 N NEUTROPHIL # (test code = NT#) 6.8 K/mm3 LYMPHOCYTE # (test code = LY#) 2.4 K/mm3 MONOCYTE # (test code = MO#) 0.8 K/mm3 EOSINOPHIL # (test code = EO#) 0.09 K/mm3 BASOPHIL # (test code = BA#) 0.1 K/mm3 RBC MORPHOLOGY REQUIRED (test code NORMAL NORMAL = RBCM) PLATELET MORPHOLOGY REQUIRED (test NORMAL NORMAL code = PLTMR) - US TRANSVAGINAL [id number] 17:23:00 Patient Name: UMESH DACOSTA Unit No: [id number] EXAMS: CPT CODE: [id number] US TRANSVAGINAL W/PELVIS 89791 EXAMINATION: Pelvic ultrasound 12/04/2018. CLINICAL HISTORY: Threatened AB. COMPARISON: Pelvic ultrasound 11/27/2018. FINDINGS: Transabdominal and transvaginal pelvic ultrasound was performed. The uterus measures 95 x 51 x 58 mm. The endometrium and endometrial contents are prominent and heterogeneous in appearance, with an overall AP measurement of 25 mm. Lobulated hyperechoic areas as well asmultiple cystic areas are present within the endometrial contents. Some of the endometrial contents demonstrate flow on color Doppler imaging. No uterine leiomyomata are evident. The right ovary measures 38 x 27 x 25 mm and contains a 28 x 20 x 16 mm corpus luteum cyst. The left ovary measures 26 x 16x 25 mm and is within normal limits in appearance. There is no evidence of extraovarian adnexal mass. There is a small amount of nonspecific free fluid in the pelvis. IMPRESSION: 1. There is no evidence of gestational sac or embryo. The findings in the endometrial cavity are most consistent with products of conception. Because of the complexity of the appearance, molar gestation should be considered.2. There is no sonographic evidence of ectopic gestation. The findings and impression were discussedwith Melany at Dr. Bill Gordon' office on 12/04/2018. at 0613 Reported and signed by: Cristina Newton MD CC: Chino Gordon MD Technologist: Tata Murphy, [facility] Probe: [id number] Trnscrbd D/ (1723) t.ANDREW.[facility] Orig PrintD/T: S: 12/04/2018 (1726) [facility] NAME: UMESH DACOSTA Radiology Department [facility]ccord [address] : 1995 AGE: 23 SEX: F [place] [address] LOC: Jan.RAD PHONE #: [phone] EXAM DATE: 12/04/2018 STATUS: REG CLI FAX #: [phone] RAD NO: Page 1 Signed Report Patient Name: UMESH DACOSTA Unit No: [id number] EXAMS: CPT CODE: [id number] US TRANSVAGINAL W/PELVIS 00461 (Continued) [facility] NAME: CHLOE DACOSTAABEL Radiology Department PHYS: [facility].[place] - Chino Mccord [address] : 1995 AGE: 23SEX: F [place] [address] LOC: Jan.RAD PHONE #: [phone] EXAM DATE: 12/04/2018 STATUS: REG CLI FAX #: [phone] RAD NO: Page 2 Signed Report- US PELVIS [id number] 17:23:00 Patient Name: UMESH DACOSTA Unit No: [id number] EXAMS: CPT CODE: [id number] US PELVIS COMPLETE 52527 EXAMINATION: Pelvic ultrasound 12/04/2018. CLINICAL HISTORY: Threatened AB. COMPARISON: Pelvic ultrasound 11/27/2018. FINDINGS: Transabdominal and transvaginal pelvic ultrasound was performed. The uterus measures 95 x 51 x 58 mm. The endometrium and endometrial contents are prominent and heterogeneous in appearance, with an overall AP measurement of 25 mm. Lobulated hyperechoic areas as well as multiple cystic areas are present within the endometrial contents. Some of the endometrial contents demonstrate flow on color Doppler imaging. No uterine leiomyomata are evident. The right ovary measures 38 x27 x 25 mm and contains a 28 x 20 x 16 mm corpus luteum cyst. The left ovary measures 26 x 16 x 25 mm and is within normal limits in appearance. There is no evidence of extraovarian adnexal mass. Thereis a small amount of nonspecific free fluid in the pelvis. IMPRESSION: 1. There is no evidence of gestational sac or embryo. The findings in the endometrial cavity are most consistent with products of c onception. Because of the complexity of the appearance, molar gestation should be considered. 2. There is no sonographic evidence of ectopic gestation. The findings and impression were discussed with Melany at Dr. Bill Gordon' office on 12/04/2018. at 172 Reported and signed by: Cristina Newton MD CC: Chino Gordon MD Technologist:Tata Murphy RDMS Probe: Trnscrbd D/ (7893) t.SDR.WS Orig Print D/T: S: 12/04/2018 (2726) [facility] NAME: UMESH DACOSTA Radiology Department PHYS: HARAD. - Chino Mccord [address] : 1995 AGE: 23 SEX: F [place], [place] [address] LOC: Jan.RAD PHONE #: [phone] EXAM DATE: 12/04/2018 STATUS: REG CLI FAX #: [phone] RAD NO: Page 1 Signed Report Patient Name: UMESH DACOSTA Unit No: [id number] EXAMS: CPT CODE: [id number] US PELVIS COMPLETE 29122 (Continued) [facility] NAME: UMESH DACOSTA Radiology Department PHYS: [facility] - Chino Mccord [address] : 1995 AGE: 23 SEX: F [place] LOC: Jan.RAD PHONE #: [phone] EXAM DATE: 12/04/2018 STATUS: REG CLI FAX #: [phone] RAD NO: Page 2 Signed Report- US TRANSVAGINAL [id number] 16:25:00 Patient Name: UMESH DACOSTA Unit No: [id number] EXAMS: CPT CODE: [id number] US TRANSVAGINAL W/PELVIS 26476 Exam: Pelvic ultrasound. Exam date: November 27, 2018. CLINICAL HISTORY: with inconclusive viability. COMPARISON: None. Real-time transabdominal and transvaginal imaging of the pelvis with spectral Doppler analysis and color-flow imaging demonstrates a 78 x 63 x 63 mm retrodisplaceduterus. The endometrium is heterogeneous. What appears to be an intrauterine gestational sac measures approximately 20 x 70 a 11 mm and is somewhat irregular. No yolk sac or pole is visualized. There is evidence of debris within this structure. There is an area adjacent to the sac suggestive of a bleed measuring approximately 18 x 10 x 12 mm. The right ovary measures 39 x 20 x 32 mm and has a normal sonographic appearance. The left ovary measures 66 x 19 x 22 mm and has a normal sonographic appearance. No extra uterine gestation is identified. IMPRESSION: Findings are suggestive of possible failed IUP. I do recommend a follow-up exam in one week for reevaluation. at 1628 Reported and signed by: Mariam Israel MD CC: Chino Gordon MD Technologist: Daphne Crews RDMS Probe: [id number] Trnscrbd D/ (3966) Mp Orig Print D/T: S: 11/27/2018 (1838) [facility] NAME: UMESH DACOSTA Radiology Department PHYS: [facility].[place] - Chino Mccord [address] : 1995 AGE: 23 SEX: F [place], [place] [address] LOC: CharmaineRAD PHONE #: [phone] EXAM DATE: 11/27/2018 STATUS: REG CLI FAX #: [phone] RAD NO: Page 1 Signed Report Patient Name: UMESH DACOSTA Unit No: [id number] EXAMS: CPT CODE: [id number] US TRANSVAGINAL W/PELVIS 54234 (Continued) [facility] NAME: CHLOE DACOSTAABEL Radiology Department PHYS: . - Chino Mccord [address] : 1995 AGE: 23 SEX: F [place] [address] LOC: CharmaineRAD PHONE #: [phone] EXAM DATE: 11/27/2018 STATUS: REG CLI FAX #: [phone] RAD NO: Page 2 Signed Report- US PELVIS [id number] 16:25:00 Patient Name: UMESH DACOSTA Unit No: [id number] EXAMS: CPT CODE: [id number] US PELVIS COMPLETE 27659 Exam: Pelvic ultrasound. Exam date: November 27, 2018. CLINICAL HISTORY: with inconclusive viability. COMPARISON: None. Real- time transabdominal and transvaginal imaging of the pelvis withspectral Doppler analysis and color-flow imaging demonstrates a 78 x 63 x 63 mm retrodisplaced uterus. The endometrium is heterogeneous. What appears to be an intrauterine gestational sac measures approximately 20 x 70 a 11 mm and is somewhat irregular. No yolk sac or pole is visualized. There is evidence of debris within this structure. There is an area adjacent to the sac suggestive of a bleed measuring approximately 18 x 10 x 12 mm. The right ovary measures 39 x 20 x 32 mm and has a normal sonographic appearance. The left ovary measures 66 x 19 x 22 mm and has a normal sonographic appearance. No extra uterine gestation is identified. IMPRESSION: Findings are suggestive of possible failed IUP. I do recommend a follow-up exam in one week for reevaluation. at 1625 Reported and signed by: Mariam Israel MD CC: Chino Hill MD Technologist: Daphne Crews RDMS Probe: Trnscrbd D/ (1625) t.SDR.CER Orig Print D/T: S: 11/27/2018 (2162) [facility] NAME: UMESH DACOSTA Radiology Department PHYS: . - Chino Mccord [address] : 1995 AGE: 23 SEX: F [place], [place] [address] LOC: CharmaineRAD PHONE #: [phone] EXAM DATE: 11/27/2018 STATUS: REG CLI FAX #: [phone] RAD NO: Page 1 Signed Report Patient Name: UMESH DACOSTA Unit No: [id number] EXAMS: CPTCODE: [id number] US PELVIS COMPLETE 54506 (Continued) [facility] NAME: UMESH DACOSTA Radiology Department PHYS: [facility]. - Bill EvanChino [address] : 1995 AGE: 23 SEX:F [place], [place] [address] LOC: CharmaineRAD PHONE #: [phone] EXAM DATE: 11/27/2018 STATUS: REG CLI FAX #: [phone] RAD NO: Page 2 Signed Report Notes Date/Time Note Provider Source 2020-06-15 09:22:00-00:00 [facility] ([facility]) OB Postpart Progr Note REPORT#:[id number] REPORT STATUS: Signed DATE:06/15/20 TIME: 921 PATIENT: UMESH VORA UNIT #: [id number] ROOM/BED: : 93 AGE: 24 SEX: F ATTEND: Chino Teran MD ADM AUTHOR: Cary Coreas MD * ALL edits or amendments must be made on the [employer]/computer document * Subjective Subjective Admission EGA: Weeks: 39 Days: 6 EGA at delivery (wks/days): 39w6d Status/Day: post (day 2 s/p ) Patient reports: Comments: Pt reports intermittent cramping, mostly relieved by pain meds. . Ambulating. No other complaints. Objective Nursing Documentation Review Nursing Data: The data set between the solid lines has been im ported from nursing documentation. Any exceptions have been noted be low under Provider comments. Feeding preference: Provider comments on imported nursing data: [] General VS: Vital Signs: Date Time Temp Pulse Resp B/P B/P Pulse O2 O2 F low FiO2 Mean Ox Delivery Rate 06/15 0004 98.5 74 18 108/69 06/14 1617 98.0 85 20 98/61 PATIENT WEIGHT: Weight (lb): 201 Weight (oz): Weight (kg): 91.514771 Physical Exam Lungs: respirations non-labored Uterus: firm, non-tender Fundus: at the umbilicus Lochia: normal Lacerations: Perineal laceration(s): 1st Degree w/vagina High vaginal laceration: no Lower extremities: Edema: trace Diagnosis, Assessment Plan Diagnosis, Assessment Plan Assessment: nml progress, breast feed ing w/o diff Plan: routine care, circumcision toda y, discharge today Consultation(s): Consultation performed: anesthesia, c onsultant Electronically Signed by Cary Coreas MD 06/15/20 at 0924 RPT #:[id number] END OF REPORT 2020-06-14 10:23:00-00:00 [facility] ([facility]) OB Postpart Progr Note REPORT#:[id number] REPORT STATUS: Signed DATE:06/14/20 TIME: 1023 PATIENT: UMESH VORA UNIT #: [id number] ROOM/BED: [address] : [birth year] AGE: 24 SEX: F ATTEND: Chino Mccord MD ADM AUTHOR: Yane Love MD * ALL edits or amendments must be made on the el [employer]/computer document * Subjective Subjective EGA at delivery (wks/days): 39w6d Status/Day: post (day 1 s/p ) Patient reports: Patient reports: Yes normal lochia, Yes pain management effective, Yes tolerating po well, Yes flatus, No bowel movement, No nausea, No vomitin g, No excessive bleeding, No abdominal pain Objective Nursing Documentation Review Nursing Data: The data set between the solid lines has been im ported from nursing documentation. Any exceptions have been noted be low under Provider comments. Feeding preference: Provider comments on imported nursing data: [] General VS: Vital Signs: Date Time Temp Pulse Resp B/P B/P Pulse O2 O2 F low FiO2 Mean Ox Delivery Rate 06/14 0752 98.2 89 20 93/62 06/14 0000 98.2 87 18 106/66 06/13 2327 92.0 06/13 2327 106 133/69 06/133 93.0 01/22 2313 96 137/65 06/13 2257 90.0 06/13 2258 100 132/63 06/13 2243 95.0 06/13 2243 86 139/67 06/13 2228 97.0 06/13 2228 81 138/65 06/13 2213 106.0 06/13 2213 92 138/84 06/13 2159 98.8 16 06/13 2159 102.0 06/13 2159 99 134/80 06/13 2145 89.0 06/13 2144 108 129/65 06/134 133.0 06/13 2113 167/117 06/13 2058 84.0 06/13 2058 76 115/67 06/13 2043 80.0 06/13 2043 80 104/64 06/13 2028 76.0 06/13 2028 72 104/58 06/13 2015 91.0 06/13 2014 71 115/75 06/13 1959 71.0 06/13 1959 74 97/54 06/13 1944 70.0 06/13 1944 71 94/55 06/13 1929 72.0 06/13 1929 72 100/52 06/13 1914 86.0 06/13 1914 67 112/69 06/13 1902 97.7 16 06/13 1900 76.0 06/13 1900 80 99/63 06/13 1758 73.0 06/13 1758 77 96/59 06/13 1743 68.0 06/13 1743 78 92/54 06/13 1728 75.0 06/13 1728 73 97/63 06/13 1714 71.0 06/13 1714 90 93/60 06/13 1658 79.0 06/13 1658 71 103/65 06/13 1644 73.0 06/13 1644 75 94/61 06/13 1628 82.0 06/13 1628 82 106/65 06/13 1623 81.0 06/13 1623 79 104/65 06/13 1618 82.0 06/13 1618 82 109/67 06/13 1614 86.0 06/13 1614 71 111/70 06/13 1612 63.0 06/13 1612 90 81/53 06/13 1609 56.0 06/13 1609 81 74/48 06/13 1601 67.0 06/13 1601 88 88/55 06/13 1213 82.0 06/13 1213 98.6 96 18 106/69 PATIENT WEIGHT: Weight (lb): 201 Weight (oz): Weight (kg): 91.189039 Physical Exam Lacerations: Perineal laceration(s): 1st Degree w/vagina High vaginal laceration: no Result Findings/Data: Laboratory Tests: 06/14 06/13 06/13 0611 1400 1230 Chemistry Sodium (135 - 145 mEq/L) 133 L Potassium (3.5 - 5.0 mEq/L) 3.8 7.0 *H Chloride (100 - 115 mEq/L) 101 Carbon Dioxide (22 - 31 mEq/L) 20 L Anion Gap (10 - 20) 19.10 BUN (7 - 18 mg/dL) 8 Creatinine (0.5 - 1.0 mg/dL) 0.2 L Glomerular Filtr Rate (>60 ml/min) 429 Glucose (65 - 110 mg/dL) 73 Calcium (8.4 - 10.2 mg/dL) 8.4 AST (15 - 37 units/L) 90 H ALT (12 - 78 units/L) 21 Hematology WBC (6.6 - 12.1 K/mm3) 13.5 H 8.3 RBC (3.45 - 5.01 M/mm3) 3.51 3.93 Hgb (10.7 - 13.9 g/dL) 10.2 L 11.3 Hct (32.1 - 42.1 %) 32.2 35.5 MCV (84.1 - 94.8 fL) 92 90 MCH (27 - 35 pg) 29.1 28.8 MCHC (32.2 - 34.1 gm/dL) 31.7 L 31.8 L RDW (12.4 - 16.5 %) 16.9 H 17.2 H Plt Count (133 - 385 K/mm3) 204 259 MPV (9.1 - 12.7 fl) 10.7 10.8 Neut % (Auto) (56.5 - 79.4 %) 76.2 72.2 Lymph % (Auto) (14.3 - 34.3 %) 15.2 18.5 Lamar % (Auto) (5.1 - 10.4 %) 7.2 7.2 Eos % (Auto) (0.1 - 3.0 %) 0.4 0.6 Baso % (Auto) (0.1 - 1.0 %) 0.3 0.5 Neut # (Auto) (K/mm3) 10.3 6.0 Lymph # (Auto) (K/mm3) 2.0 1.5 Lamar # (Auto) (K/mm3) 1.0 0.6 Eos # (Auto) (K/mm3) 0.06 0.05 Baso # (Auto) (K/mm3) 0.0 0.0 Immature Plt Fraction (0.0 - 10.8 %) 5.6 Serology Treponema pallidum Ab (NONREACTIVE) NONREACTIVE Hep Bs Antigen (NONREACTIVE) NONREACTIVE Hepatitis C Antibody (NONREACTIVE) NONREACTIVE Hep C Ab Signal/Cutoff (<0.80) <0.02 HIV 1 2 Antibody (NONREACTIVE) NONREACTIVE Diagnosis, Assessment Plan Diagnosis, Assessment Plan Assessment: nml progress Plan: routine care, circumcision nico rrow, discharge tomorrow Consultation(s): Consultation performed: anesthesia, c onsultant at 1025 RPT #:[id number] END OF REPORT 2020-06-13 22:25:00-00:00 [facility]) OB Delivery Note REPORT#:[id number] REPORT STATUS: Signed DATE:06/13/20 TIME: 5 PATIENT: UMESH VORA UNIT #: [id number] ROOM/BED: [address] : [birth year] AGE: 24 SEX: F ATTEND: Chino Mccord MD ADM AUTHOR: Yane Love MD * ALL edits or amendments must be made on the el [employer]/computer document * OB Delivery Nursing Documentation Review Nursing data: The data set between the solid lines has been im ported from nursing documentation. Any exceptions have been noted be low under Provider comments. _ ROM date: 06/13/20 ROM time: 1320 Membranes rupture method: AROM Amniotic fluid color: Clear Amniotic fluid amount: Steroids prior to arrival: Antibiotic prophylaxis given: evaluation at delivery: Delivery date infant A: Delivery time A: Birthweight (gm) infant A: Weight (lb) infant A: Weight (oz) A: Gender A: Male 1 minute A: 5 minutes infant A: 10 minutes infant A: Cord pH obtained A: Vacuum time infant A: Vacuum # pulls A: Vacuum # popoffs infant A: QBL at delivery: __ Provider comments on imported nursing data: [] Pre-delivery GBS status: GBS status: negative evaluation at delivery: NRP certified pe rsonnel EGA at delivery (wks/days): 39w6d Baby A Information Baby A information Delivery date: 06/13/20 Delivery time: 2127 status: live born Wt of baby (lbs/oz): [id number] Gender: male 1 minute: 8 5 minutes: 9 Presentation: vertex (OA) Anomalies: none seen Nuchal cord Baby A Nuchal cord: yes (loose and reduced) Additional comments: IOL by Dr. Bill Gordon for Macrosomia Vaginal Delivery Vaginal delivery: Labor: induced Medications/Devices used: oxytocin Vaginal delivery: spontaneous Amniotic fluid: clear Anesthesia type: epidural anesthesia Episiotomy: none Laceration repair: 3-0 suture (chromic) Placenta: spontaneous, intact, 3 vessels Count: correct, vag exam neg for sponges Vaginal packing: No Mother's condition: mother stable Infant's condition: infant stable in room Lacerations: Perineal laceration(s): 1st Degree w/vagina High vaginal laceration: no Shoulder dystocia present: no Additional comments: Called by RN that pt was c/c /+3 and ready to deliver. She pushed well over inact perienum to deliver a viable male . Extra help was at hand in case of dystocia. Head came out straight OA and restitut ed to MOISE. Gentle downard traction was used to deliver the anterior shoulder without dystocia followed by the posterior shoulder.He was vigorous a nd crying upon delivery. He was moving both arms normally. Delayed cord clamping was do ne x 1 minute, then it was clamped by and cut by Soren. He was placed sk in to skin. Cord blood was collected. The vulva, vagina, and perineum were inspected and a 1st degree vaginal abrasion was found and repaired with a f igure of 8 with 3-0 chromic. Placenta delivered spontaneously, intact, with 3 vessel cord. Uterus was firm with massage and pitocin . Mother and infant were doing well at bedside. Blood Loss/Details Blood loss at delivery: <1000 ml, no more than e xpected EBL at delivery (ml's): 300 at 2232 RPT #:[id number] END OF REPORT 2020-06-13 20:56:00-00:00 [facility] ([facility]) OB Intrapart Prog Note REPORT#:[id number] REPORT STATUS: Signed DATE:06/13/20 TIME: 2055 PATIENT: UMESH VORA UNIT #: [id number] ROOM/BED: [address] : [birth year] AGE: 24 SEX: F ATTEND: Chino Mccord MD ADM AUTHOR: Yane Love MD * ALL edits or amendments must be made on the el [employer]computer document * Subjective Subjective Admission EGA (wks/days): 39 weeks (39w6d) Comments: Pt is feeling more pressure Objective General VS: Last Documented: Result Date Time B/P Mean 71.0 06/13 1958 B/P 97/54 06/13 1958 Pulse 74 06/13 1958 Temp 97.7 06/13 1901 Resp 16 06/13 1901 Vital Signs Date Temp Pulse Resp B/P B/P Mean Pulse Ox FiO2 06/13 97.7-98.6 67-96 16-18 74-112/48-70 56.0-8 6.0 PATIENT WEIGHT: Weight (lb): 201 Weight (oz): Weight (kg): 91.324334 Objective Cervical/ exam: Dilatation (cm): /-1 @2023 by Kate presentation: cephalic Est. wt (grams) 4500.00 Pelvis exam: Clinically adequate for this fetus: probably Uterine activity: Monitor: toco Frequency (description): regular (q2) Current oxytocin: Indication: induction Infusion rate: 22.00 FHR Evaluation Baby A: Baby A baseline: 135 bpm Baby A variability: moderate 6-25 bpm Baby A accelerations: 15 X 15 Baby A decelerations: early Baby A FHR category: category 1 Result Findings/Data: Laboratory Tests: 06/13 06/13 1400 1230 Chemistry Sodium (135 - 145 mEq/L) 133 L Potassium (3.5 - 5.0 mEq/L) 3.8 7.0 *H Chloride (100 - 115 mEq/L) 101 Carbon Dioxide (22 - 31 mEq/L) 20 L Anion Gap (10 - 20) 19.10 BUN (7 - 18 mg/dL) 8 Creatinine (0.5 - 1.0 mg/dL) 0.2 L Glomerular Filtr Rate (>60 ml/min) 429 Glucose (65 - 110 mg/dL) 73 Calcium (8.4 - 10.2 mg/dL) 8.4 AST (15 - 37 units/L) 90 H ALT (12 - 78 units/L) 21 Hematology WBC (6.6 - 12.1 K/mm3) 8.3 RBC (3.45 - 5.01 M/mm3) 3.93 Hgb (10.7 - 13.9 g/dL) 11.3 Hct (32.1 - 42.1 %) 35.5 MCV (84.1 - 94.8 fL) 90 MCH (27 - 35 pg) 28.8 MCHC (32.2 - 34.1 gm/dL) 31.8 L RDW (12.4 - 16.5 %) 17.2 H Plt Count (133 - 385 K/mm3) 259 MPV (9.1 - 12.7 fl) 10.8 Neut % (Auto) (56.5 - 79.4 %) 72.2 Lymph % (Auto) (14.3 - 34.3 %) 18.5 Lamar % (Auto) (5.1 - 10.4 %) 7.2 Eos % (Auto) (0.1 - 3.0 %) 0.6 Baso % (Auto) (0.1 - 1.0 %) 0.5 Neut # (Auto) (K/mm3) 6.0 Lymph # (Auto) (K/mm3) 1.5 Lamar # (Auto) (K/mm3) 0.6 Eos # (Auto) (K/mm3) 0.05 Baso # (Auto) (K/mm3) 0.0 Immature Plt Fraction (0.0 - 10.8 %) 5.6 Serology Treponema pallidum Ab (NONREACTIVE) NONREACTIVE Hep Bs Antigen (NONREACTIVE) NONREACTIVE Hepatitis C Antibody (NONREACTIVE) NONREACTIVE Hep C Ab Signal/Cutoff (<0.80) <0.02 HIV 1 2 Antibody (NONREACTIVE) NONREACTIVE Diagnosis, Assessment Plan Additional notes: 24 y/o A1 @39w6d undergo ing IOL per Dr. Khan-Mass for elevated EFW. -progressing well on Pitocoi n. Will place on peanut ball and recheck in 1 hour. -additional assistance at delivery. Pt h as been counselled re: large EFW, risk of shoulder dystocia, brachial plexus injury. -epidural in place, working well. -GBS neg -FHTs Cat I, reassuring -It's a boy! Plan referral to pedi surg for circ . -hepatomegaly with 5.7cm focal nodular hyperplas ia: avoid RUQ pressure if . at 210 RPT #:[id number] END OF REPORT 2020-06-13 16:19:00-00:00 [facility] OB Intrapart Prog Note REPORT#:[id number] REPORT STATUS: Signed DATE:06/13/20 TIME: 1619 PATIENT: UMESH VORA UNIT #: [id number] ROOM/BED: [address] : [birth year] AGE: 24 SEX: F ATTEND: Chino cMcord MD ADM AUTHOR: Chino Mccord MD * ALL edits or amendments must be made on the el ectronic/computer document * Subjective Subjective Comments: just had epidural placed, comfortable. Objective Nursing Documentation Review Nursing data: The data set between the solid lines has been im ported from nursing documentation. Any exceptions have been noted be low under Provider comments. __ ROM date: 06/13/20 ROM time: 1320 __ Provider comments on imported nursing data: [] General VS: Last Documented: Result Date Time B/P Mean 82.0 06/13 1213 B/P /06/13 1213 Temp 98.6 06/13 1213 Pulse 96 06/13 1213 Resp 18 06/13 1213 Vital Signs Date Temp Pulse Resp B/P B/P Mean Pulse Ox FiO 2 06/13 98.6 96 18 82.0 PATIENT WEIGHT: Weight (lb): 201 Weight (oz): Weight (kg): [id number] Objective Cervical/ exam: Dilatation (cm): 3/80/-3 AHM 1615 presentation: cephalic Uterine activity: Monitor: toco Frequency (description): regular (q3) Current oxytocin: Indication: induction Infusion rate: 10.00 FHR Evaluation Baby A: Baby A baseline: 135 bpm Baby A variability: moderate 6-25 bpm Baby A accelerations: 15 X 15 Baby A decelerations: none Baby A FHR category: category 1 Result Findings/Data: Laboratory Tests: 06/13 06/13 1400 1230 Chemistry Sodium (135 - 145 mEq/L) 133 L Potassium (3.5 - 5.0 mEq/L) 3.8 7.0 *H Chloride (100 - 115 mEq/L) 101 Carbon Dioxide (22 - 31 mEq/L) 20 L Anion Gap (10 - 20) 19.10 BUN (7 - 18 mg/dL) 8 Creatinine (0.5 - 1.0 mg/dL) 0.2 L Glomerular Filtr Rate (>60 ml/min) 429 Glucose (65 - 110 mg/dL) 73 Calcium (8.4 - 10.2 mg/dL) 8.4 AST (15 - 37 units/L) 90 H ALT (12 - 78 units/L) 21 Hematology WBC (6.6 - 12.1 K/mm3) 8.3 RBC (3.45 - 5.01 M/mm3) 3.93 Hgb (10.7 - 13.9 g/dL) 11.3 Hct (32.1 - 42.1 %) 35.5 MCV (84.1 - 94.8 fL) 90 MCH (27 - 35 pg) 28.8 MCHC (32.2 - 34.1 gm/dL) 31.8 L RDW (12.4 - 16.5 %) 17.2 H Plt Count (133 - 385 K/mm3) 259 MPV (9.1 - 12.7 fl) 10.8 Neut % (Auto) (56.5 - 79.4 %) 72.2 Lymph % (Auto) (14.3 - 34.3 %) 18.5 Lamar % (Auto) (5.1 - 10.4 %) 7.2 Eos % (Auto) (0.1 - 3.0 %) 0.6 Baso % (Auto) (0.1 - 1.0 %) 0.5 Neut # (Auto) (K/mm3) 6.0 Lymph # (Auto) (K/mm3) 1.5 Lamar # (Auto) (K/mm3) 0.6 Eos # (Auto) (K/mm3) 0.05 Baso # (Auto) (K/mm3) 0.0 Immature Plt Fraction (0.0 - 10.8 %) 5.6 Serology Treponema pallidum Ab (NONREACTIVE) NONREACTIVE Hep Bs Antigen (NONREACTIVE) NONREACTIVE Hepatitis C Antibody (NONREACTIVE) NONREACTIVE Hep C Ab Signal/Cutoff (<0.80) <0.02 HIV 1 2 Antibody (NONREACTIVE) NONREACTIVE Diagnosis, Assessment Plan Assessment: normal FHR pattern Plan: *pitocin for IOL, s/p amniotomy at 1315. *epidural in place, working well. *GBS neg *FHTs reassuring *E FW 4300g *It's a boy! Plan referral to pedi surg for circ. *hepatomegaly with 5.7 cm focal nodular hyperplasia: avoid RUQ pressure if . at 1623 RPT #:[id number] END OF REPORT 2020-06-12 08:03:00-00:00 [facility] ([facility]) OB Admission / H P REPORT#:[id number] REPORT STATUS: Signed DATE:06/12/20 TIME: 08 PATIENT: UMESH VORA UNIT #: [id number] ROOM/BED: [address] : 93 AGE: 24 SEX: F ATTEND: Chino Mccord MD ADM AUTHOR: Chino Mccord MD * ALL edits or amendments must be made on the el ectronic/computer document * OB History Nursing Documentation Review Nursing data: The data set between the solid lines has been im ported from nursing documentation. Any exceptions have been noted be low under Provider comments. Current data Steroids prior to arrival: ROM date: ROM time: EDC date: Prior history : Para: Term: : Abortions spontaneous: Abortions induced: Living children: Ectopic: Stillbirths: Live births: deaths: Number of previous C/S: Reported maternal labs/data Blood type: Rh type: Rubella: Hepatitis B: HIV exposure test: VDRL: Group B beta strep: Rho(D) immune globulin this preg: Monitor mode - UA: Feeding preference: Provider comments on imported nursing data: [] Chief complaint: scheduled induction HPI: 24y at 39w6d for induction of la bor. has been complicated by large EFW- 4300g. hepatomegaly with 5.7cm hetero genous area of the liver (s/p evaluation by GI, being followed); pelvic pain/r adiculopathy throughout the ; cholecystectomy done 12/07/[address] Joshua Parisi. . 2015 FT Female 2. 11/2018 complete molar - D C by [facility] history: : 3 Term: 1 : 0 Abortus: 1 Living children: 1 Previous : none Current : Best EDC: 06/14/20 Admission EGA (weeks) 39 Admission EGA (days) 6 Labs: Blood type: A Rh: positive Rubella: immune Hepatitis B: negative HIV: negative STD: negative Syphilis: currently negative GBS: negative Past medical history: chlamy bryan/trichomonas 2010; hepatomegaly with 5.7 cm left liver lobe focal nodular hyperplasia, complete m olar 11/2018 Past surgical history: Right foot surgery, cyst removal, D C for molar , laparoscopic cholecystectomy (during this preg rebecca). Social history: employed, , no al cohol use, no tobacco use, no drug use Family history Relation not specified for: Family History: Cancer Family History: Diabetes Family History: Heart disease Medications: Home Medications: PNV/FE FUM/FA ( MULTIVITAMIN) 1 TAB PO D AILY Allergies Coded Allergies: No Known Allergies (12/06/19) Review of Systems : Reports: pelvic pain, . Musculoskeletal: lumbar pain. All systems rev neg: except as marked Objective General VS: PATIENT WEIGHT: Weight (lb): Weight (oz): Weight (kg): Physical Exam Neuro: Exam: alert, oriented x3, normal speech, normal gait Abdomen: gravid, soft, no abnormal tenderness, n o guarding, no rebound tenderness Uterine activity: Monitor: toco Pelvic exam: Pelvis clinically adequate: yes Cervical/ exam: Dilatation (cm): 2/60/-3 in clinic 06/11/2020 Est wt (gms): 4300 presentation: cephalic Membranes: Membranes: Intact Lower extremities: Edema: trace Baby A: Baby A baseline: 140 bpm Baby A variability: moderate 6-25 bpm Baby A accelerations: 15 X 15 Baby A decelerations: none Baby A FHR category: category 1 Result Findings/Data: Laboratory Tests: 06/13 1230 Hematology WBC (6.6 - 12.1 K/mm3) 8.3 RBC (3.45 - 5.01 M/mm3) 3.93 Hgb (10.7 - 13.9 g/dL) 11.3 Hct (32.1 - 42.1 %) 35.5 MCV (84.1 - 94.8 fL) 90 MCH (27 - 35 pg) 28.8 MCHC (32.2 - 34.1 gm/dL) 31.8 L RDW (12.4 - 16.5 %) 17.2 H Plt Count (133 - 385 K/mm3) 259 MPV (9.1 - 12.7 fl) 10.8 Neut % (Auto) (56.5 - 79.4 %) 72.2 Lymph % (Auto) (14.3 - 34.3 %) 18.5 Lamar % (Auto) (5.1 - 10.4 %) 7.2 Eos % (Auto) (0.1 - 3.0 %) 0.6 Baso % (Auto) (0.1 - 1.0 %) 0.5 Neut # (Auto) (K/mm3) 6.0 Lymph # (Auto) (K/mm3) 1.5 Lamar # (Auto) (K/mm3) 0.6 Eos # (Auto) (K/mm3) 0.05 Baso # (Auto) (K/mm3) 0.0 Immature Plt Fraction (0.0 - 10.8 %) 5.6 Diagnosis, Assessment Plan Diagnosis, Assessment Plan Free Text A P: [id number] at 39w6d, here for IOL. *pitocin, amniotomy for induction. *GBS neg *Epidural prn * Donte *It's a boy! they do want a circumcision. *She does want sterilization if she requires a c esarean. *Hepatomegaly with 5.7 cm focal nodular hyperpla bennett: normal LFTs during , avoid RUQ pressure if delivery via ce sarean. *EFW 4300g: risks/benefits o f vs trial of labor discussed, she prefers to try for vaginal delivery. Discussed the risks of shoulder dystocia. SVE /2 AROM 1315 AHM at 1353 RPT #:[id number] END OF REPORT 2020-04-30 14:16:00-00:00 [facility] ([facility]) EMERGENCY PROVIDER REPORT REPORT#:[id number] REPORT STATUS: Signed DATE:04/30/20 TIME: 1416 PATIENT: UMESH VORA UNIT #: [id number] ROOM/BED: AGE: 24 SEX: F PCP PHYS: Chino Mccord MD SERVICE AUTHOR: Susannah Wynne * ALL edits or amendments must be made on the el ectronic/computer document * HPI-General Illness Free Text HPI Notes Free Text HPI Notes 24-year-old female G3, P1 at 33 weeks gestational age presents with shortness of breath and chest pain that been intermittent x1 week. Patient states symptoms appear to be worsened in the evening when she is trying to go to sleep. Chest pain is currently 5/10 and is in intensity and i s nonradiating. Chest pain is centrally located and feels like "a weight on my chest." Patient also reports sharp suprapubic pain with o nset this morning. Patient denies vaginal bleeding, gush of fluid, abnormal vaginal discharge, dysur ia, fever, cough. Patient reports normal movements. General Initial Greet Date/Time 04/30/20 1107 Presentation Chief Complaint Shortness of breath Hx Obtained From Patient Review of Systems ROS Statements All systems rev neg except as marked. Review of Systems Constitutional Reports: Fatigue. Denies: Fever. Eyes Denies: Blurred bilat. Ears/Nose/Throat Denies: Earache bilat, Nasal congestion. Respiratory Reports: Shortness of breath . Denies: Cough, non-productive, Cough, productive, Pleuritic pain. Cardiovascular Reports: Chest pain, Dyspnea on exertion, Edema. Denies: Syncope. GI Reports: Abdominal pain (pelvic pain). Denies: N ausea, Vomiting. Female Reports: Pelvic pain, Pregna nt. Denies: Dysuria, Flank pain, Vaginal bleeding - abnl. Musculoskeletal Reports: Extremity swelling. Denies: Back pain, Extremity pain. Skin Denies: Erythema, Itching, Rash. Neurologic Reports: Dizziness, Generalized weakness. Denies : Confusion, Focal weakness, Headache, Lightheaded, Numbness, Problem walking , Syncope, Tingling, Vision change. Psychiatric Denies: Change mental status, Confusion. Past Medical History - Adult Stated Complaint SOB,DIZZINESS,PELVIC PAIN,33 WE EKS Allergies Coded Allergies: No Known Allergies (12/06/19) Home Medications Reported Medications PNV/FE FUM/FA ( MULTIVITAMIN) 1 TAB PO D AILY Physical Exam Vital Signs Vital Signs First Documented: Result Date Time Pulse Ox 100 04/30 1115 B/P 104/65 04/30 1115 B/P Mean 78 04/30 111 O2 Delivery Room air 04/30 1115 Temp 98.9 04/30 1115 Pulse 105 04/30 1115 Resp 18 04/30 111 Last Documented: Result Date Time Pulse Ox 99 04/30 1526 B/P 95/56 12/09 1526 B/P Mean 69 04/30 1526 O2 Delivery Room air 04/30 1526 Temp 98.5 04/30 1526 Pulse 100 04/30 1526 Resp 16 04/30 1526 Review of Vital Signs Reviewed Physical Exam General/Const General/Const Awake, Alert, No acute di stress, Well appearing, Well developed , Well hydrated, Well nourished, Cooperative, No t toxic appearing MS Head Head Atraumatic, Normocephalic Eyes Eyes Atraumatic, PERRL, EOMI, No perior bital redness, No periorbital swelling Ears/Nose/Throat Ears/Nose/Throat Atraumatic, Airway patent, Muc ous membranes moist Resp/Chest Respiratory/Chest Atraumatic, Breath sounds NL, Breath sounds = bilat, No respiratory distress, No rales Cardiovascular Cardiovascular Regular rhythm, Heart so unds NL, No gallop, No murmurs, slight tachycardia Abdomen/GI Abdomen/GI gravid abdomen with slight suprapubi c tenderness without guarding or rebound MS Back Back Atraumatic, Inspection NL, No CVA tenderne ss MS Lower Extrem Lower Ext/Pelvis/MS Atraumatic, Inspection NL, No swelling, Non-tender, No erythema, No deformity MS Ankle/Foot Ankle/Foot Atraumatic, Inspection NL, No swelli ng, Non-tender Skin Skin Atraumatic, Color NL, No rash, War m, Dry, Intact, Turgor NL, No swelling Neurologic Neurologic Oriented X3, Speech NL, CN II - XII intact, Gait NL Psychiatric Psychiatric Affect NL, Mood NL Interpretation Diagnostics Lab Results Interpretation Results Laboratory Tests 04/30/20 1144: [Embedded Image Not Available] Laboratory Tests: 04/30 1144 Chemistry Sodium (135 - 145 mEq/L) 134 L Potassium (3.5 - 5.0 mEq/L) 3.7 Chloride (100 - 115 mEq/L) 102 Carbon Dioxide (22 - 31 mEq/L) 24 Anion Gap (10 - 20) 12.20 BUN (7 - 18 mg/dL) 8 Creatinine (0.5 - 1.0 mg/dL) 0.5 Glomerular Filtr Rate (>60 ml/min) 149 Glucose (65 - 110 mg/dL) 93 Calcium (8.4 - 10.2 mg/dL) 8.5 Total Bilirubin (0.2 - 1.0 mg/dL) 0.2 AST (15 - 37 units/L) 12 L ALT (12 - 78 units/L) 19 Total Alk Phosphatase (46 - 116 units/L) 85 Total Creatine Kinase (26 - 192 Units/L) 25 L Troponin I (<0.056 ng/mL) <0.017 Total Protein (6.3 - 8.2 gm/dL) 7.1 Albumin (3.4 - 4.8 gm/dL) 2.6 L Hematology WBC (6.6 - 12.1 K/mm3) 9.8 RBC (3.45 - 5.01 M/mm3) 3.63 Hgb (10.7 - 13.9 g/dL) 10.8 Hct (32.1 - 42.1 %) 33.4 MCV (84.1 - 94.8 fL) 92 MCH (27 - 35 pg) 29.8 MCHC (32.2 - 34.1 gm/dL) 32.3 RDW (12.4 - 16.5 %) 14.0 Plt Count (133 - 385 K/mm3) 279 MPV (9.1 - 12.7 fl) 10.1 Neut % (Auto) (56.5 - 79.4 %) 73.9 Lymph % (Auto) (14.3 - 34.3 %) 14.1 L Lamar % (Auto) (5.1 - 10.4 %) 8.5 Eos % (Auto) (0.1 - 3.0 %) 0.7 Baso % (Auto) (0.1 - 1.0 %) 0.4 Neut # (Auto) (K/mm3) 7.2 Lymph # (Auto) (K/mm3) 1.4 Lamar # (Auto) (K/mm3) 0.8 Eos # (Auto) (K/mm3) 0.07 Baso # (Auto) (K/mm3) 0.0 Serology SARS CoV-2 RNA Rapid CARA (Negative) Negative Urines Urine Color (YELLOW) STRAW Urine Appearance (CLEAR) CLEAR Urine pH (5 - 9) 7.0 Ur Specific Pillager (1.001 - 1.035) 1.005 Urine Protein (NEG) NEGATIVE Urine Glucose (UA) (NEG) NEGATIVE Urine Ketones (NEG) NEGATIVE Urine Blood (NEG) NEG Urine Nitrite (NEG) NEG Urine Bilirubin (NEG) NEGATIVE Urine Urobilinogen (NEG mg/dL) NEGATIVE Ur Leukocyte Esterase (NEG) NEG Urine RBC (NONE SEEN #/hpf) 0-2 Urine WBC (NONE SEEN #/hpf) 0-2 Ur Epithelial Cells (RARE - FEW #/HPF) RARE Urine Bacteria (RARE - FEW /HPF) RARE Recent Impressions: RADIOLOGY - XR CHEST 1 V 04/30 1140 Report Impression - Status: SIGNED Entered: 04/30/2020 1159 IMPRESSION: No evidence of acute cardiopulmonary disease. Impression By: Mp Israel MD CAT SCAN - CTA CHEST FOR PE 04/30 1424 Report Impression - Status: SIGNED Entered: 04/30/2020 1452 IMPRESSION: No pulmonary emboli identified. No significant abnormalities noted. Impression By: Mp Israel MD ECG #1 Interpretation Date 04/30/20 Time 1417 Interpreted by and reviewed by me, ED physician NL ECG Interpretation Normal sinus rhythm, No acute ischemic changes, No STEMI, Normal QRS, Normal ST waves, Normal T wa ves, Normal axis, Normal intervals, No change from prior ECGs, sinus tachycardia @ 104 bpm Rate 104 Re-Evaluation MDM Re-Evaluation/Progress #1 Text/Dict Note Well-appearing and in no distress. Patie nt states that she is tired and hungry and would like discharge vani e. I informed patient that I have not yet been able to discuss her lab and radiology results with he r [facility]. She states that she will follow-up with her [facility] would like discha rge home. Time of Re-Eval 1509 Re-Eval Status Improved ED Course Medication(s) Ordered Medication(s) Ordered: Diagnostic Agents Sig/Brant Start time Last Medication Dose Route Stop Time Status Admin Iopamidol 100 ML .STK-MED ONE 04/30 1448 DC IV 04/30 1449 1448 Electrolytic, Caloric, And Sheeba Sig/Brant Start time Last Medication Dose Route Stop Time Status Admin Sodium Chloride 100 ML .STK-MED ONE 04/30 1448 DC 04/30 IV 04/30 1449 144 Consultation Consultation Referral/Consult Name Chino Mccord MD Dictionary Editor Called [facility] Requested Call Time 1458 Requested Call Date 04/30/20 Call Returned Call returned Call Returned Time 1556 Call Returned Date 12/09/20 Dictionary Editor Will see in office, Agrees with eval , Agrees with plan Patient Discharge Departure Vital Signs/Condition Vital Signs First Documented: Result Date Time Pulse Ox 100 04/30 1115 B/P 104/65 04/30 1115 B/P Mean 78 04/30 1115 O2 Delivery Room air 04/30 1115 Temp 98.9 04/30 1115 Pulse 105 04/30 1115 Resp 18 04/30 1115 Last Documented: Result Date Time Pulse Ox 99 04/30 1526 B/P 95/56 04/30 1526 B/P Mean 69 04/30 1526 O2 Delivery Room air 04/30 1526 Temp 98.5 04/30 1526 Pulse 100 04/30 1526 Resp 16 04/30 1526 All vital signs available at the time of this en try have been reviewed. Condition Stable, Improved Clinical Impression Clinical Impression Primary Impression: Shortness of breath Secondary Impressions: Chest pain, Dizziness, Pe lvic pain during Time of Impression 151 Disposition Decision Discharge )( Discharged to Home Yes )( Time 151 )( Date 04/30/20 Discharge/Care Plan Counseled Regarding Diagnosi s, Lab results, Imaging studies, Need for follow-up, When to return to ED Patient Instructions ED Chest Pain, Uncertain Ca use, ED Dizziness, Uncertain Cause, ED Pelvic Pain Preg UKO 2 or 3 Tri, ED Sh ortness of Breath (Dyspnea) Additional Instructions Follow-up with your [facility]. Return to th e emergency room if you have worsening symptoms or you have any oth er acute concerns. Stay hydrated drinking plenty of liquids. You may also try taking [id number]-hqvmyd r Pepcid, which is safe in , to see if that alleviates you r chest pain as this may be related to acid reflux or heartburn, which is very common i n . Referrals Chino Mccord MD (PCP/Family): Call for a ppointment Discharge Note I have spoken with the patie nt and/or caregivers. I have explained the patient's condition, diagnoses and jerel atment plan based on the information available to me at this time. I have answered the patient's and/ or caregiver's questions and addressed any concerns. The patient and/or careg aubrey have as good an understanding of the patient 's diagnosis, condition and treatment plan as can be expected at this point. The vital signs have bee n stable. The patient's condition is stable and appr opriate for discharge from the emergency department. The patient will pursue further outpatient evalu ation with the primary care physician or other designated or consulting phys ician as outlined in the discharge instructions. The patient and/or caregivers are agreeable to this plan of care and follow-up instructions have been exp lained in detail. The patient and/or caregivers have received these instructio ns in written format and have expressed an understanding of the discharge inst ructions. The patient and/or caregivers are aware that any significant change in condition or worsening of symptoms should prompt an immediate return to [facility] or the closest emergency department or a call to 1. at 1636 RPT #:[id number] END OF REPORT 2020-04-30 11:28:00-00:00 [id number] [facility] [address] [address] PATIENT NAME: UMESH VORA ADMIT DATE: ACCOUNT NO: [id number] ROOM NO: AGE: 24 SEX: F ADMITTING PHYSICIAN: ATTENDING PHYSICIAN: Susannah Wynne MD Order: [id number] Test Reason : SOB / DIZZINESS Test Date/Time Stamp: TueApr 30 2020 11:28:36 Blood Pressure : / mmHG Vent. Rate : 104 BPM Atrial Rate : 104 BPM P-R Int : 136 ms QRS Dur : 078 ms QT Int : 326 ms P-R-T Axes : 031 014 011 degree s QTc Int : 428 ms Sinus tachycardia Otherwise normal ECG No previous ECGs available Confirmed by SHARON SAINI MD ([id number]) on 020 1:04:28 PM Referred By: Self Referred Confirmed by:SHARON MICHEL MD at 1304 PATIENT NAME: UMESH VORA ACCOUNT #: [id number] 2019-12-28 09:45:00-00:00 [facility] ([facility]) EMERGENCY PROVIDER REPORT REPORT#:[id number] REPORT STATUS: Signed DATE:12/28/19 TIME: 944 PATIENT: UMESH VORA UNIT #: [id number] ROOM/BED: AGE: 24 SEX: F PCP PHYS: Chino Mccord SERVICE AUTHOR: Stoney Pastrana MD * ALL edits or amendments must be made on the el ectronic/computer document * HPI-Preg Under 20 Weeks General Confirmed Patient Yes Initial Greet Date/Time 12/28/[address] Bill Gordon Presentation Chief Complaint Abdominal cramping, Free Text HPI Notes Free Text HPI Notes Patient is a 24-year-old G3, P1 at 16 weeks status post lap gustabo 1 month prior presents for 5-day history o f lower back pain and left leg pain worse at the end of the day after sitting all day at work now wit h pelvic pain and pressure. Patient has been having some vaginal dis charge over the last 2 days denies any intercourse or history of STDs. No fevers chills nausea vomiting diarrhea or constipation. Of note patient also compl aining of some bright red blood in the stool a few days ago. Review of Systems ROS Statements All systems rev neg except as marked. Basic Review of Systems Basic ROS ENT: No sore throat, PSYCH: NL thought content Free Text ROS Notes Free Text ROS Notes CONSTITUTIONAL: NO FEVER, CHILLS, CHANGES IN BEH AVIOR CARDIOVASCULAR: NO CYANOSIS, SWELLING OR SOB PULMONARY: NO COUGH, SOB OR WHEEZING GI: NO TENDERNESS, NAUSEA OR VOMITING, DIARRHEA or CONTIPATION GENITOURINARY: NO DYSURIA, DISCHARGE, BLOOD IN U RINE; + VAGINAL DISCHARGE, PELVIC PAIN SKIN: NO REDNESS, RASHES OR LESIONS MUSCULOSKELETAL: NO JOINT PAIN, MUSCLE PAIN; + B ACK PAIN NEUROLOGIC: NO LOC, SEIZURES, NUMBNESS OR TINGLI NG Past Medical History - Adult Stated Complaint 16 WKS PREG W/PELVIC PAIN,L LEG PAIN,VAG DISCHARGE Allergies Coded Allergies: No Known Allergies (12/06/19) Home Medications Reported Medications PNV/FE FUM/FA ( MULTIVITAMIN) 1 TAB PO D AILY Discontinued Reported Medications NITROFURANTOIN MACROCRYSTAL (MACRODANTIN) 100 MG PO Q12H Additional Medical History none Additional Surgical History foot surgery Family History: Reports: Gallbladder disease. Alcohol Use Denies EtOH use Drug Use Denies recreational drugs Physical Exam Vital Signs Vital Signs First Documented: Result Date Time Pulse Ox 98 12/28 939 B/P 107/72 12/28 939 B/P Mean 83 12/28 939 O2 Delivery Room air 12/28 939 Temp 37.0 12/28 939 Pulse 91 12/28 939 Resp 17 12/28 939 Last Documented: Result Date Time Pulse Ox 98 12/27 1405 B/P 94/53 12/27 1405 B/P Mean 66 12/27 140 O2 Delivery Room air 12/27 1405 Temp 36.9 12/27 140 Pulse 95 12/27 1405 Resp 16 12/27 1405 Review of Vital Signs Reviewed Basic Physical Exam Basic PE HEAD: Atraumatic/NC, EYES: PERRL, conj clear, ENT: Membranes moist, RESP: No resp distress, CV: Reg rate rhythm, EXT : No gross abnormality, SKIN: No rashes, warm/dry, NEURO: alert oriented, NEUR O: gross movement NL, PSYCH: NL thought content Focused PE General/Const General/Const Awake, Alert, No acute distress, Cooperative Resp/Chest Respiratory/Chest Atraumatic, Breath sounds NL, No respiratory distress, No retractions Cardiovascular Cardiovascular Heart rate NL, Regular rhythm, H eart sounds NL, Peripheral circulation NL Abdomen/GI Abdomen/GI Atraumatic, Soft, Non-tender, BS nor moactive, No distention MS Back Back Atraumatic, Inspection NL, Non-tender Genitourinary General Exam deferred Neurologic Neurologic Oriented X3, Speech NL, CN II - XII intact, Memory NL Interpretation Diagnostics Lab Results Interpretation Results Laboratory Tests 12/28/19 0950: [Embedded Image Not Available] Laboratory Tests: 12/27 949 Chemistry Sodium (135 - 145 mEq/L) 134 L Potassium (3.5 - 5.0 mEq/L) 3.4 L Chloride (100 - 115 mEq/L) 98 L Carbon Dioxide (22 - 31 mEq/L) 24 Anion Gap (10 - 20) 15.10 BUN (7 - 18 mg/dL) 9 Creatinine (0.5 - 1.0 mg/dL) 0.5 Glomerular Filtr Rate (>60 ml/min) 149 Glucose (65 - 110 mg/dL) 130 H Calcium (8.4 - 10.2 mg/dL) 8.5 Coagulation PT (10.4 - 12.4 secs) 12.4 INR 1.15 PTT (Tal) (22 - 38 secs) 30.2 D-Dimer (<255 ng/mLDDU) 220 Hematology WBC (6.6 - 12.1 K/mm3) 8.7 RBC (3.45 - 5.01 M/mm3) 3.90 Hgb (10.7 - 13.9 g/dL) 12.4 Hct (32.1 - 42.1 %) 36.8 MCV (84.1 - 94.8 fL) 94 MCH (27 - 35 pg) 31.8 MCHC (32.2 - 34.1 gm/dL) 33.7 RDW (12.4 - 16.5 %) 13.2 Plt Count (133 - 385 K/mm3) 292 MPV (9.1 - 12.7 fl) 9.8 Neut % (Auto) (56.5 - 79.4 %) 74.0 Lymph % (Auto) (14.3 - 34.3 %) 17.5 Lamar % (Auto) (5.1 - 10.4 %) 6.2 Eos % (Auto) (0.1 - 3.0 %) 1.1 Baso % (Auto) (0.1 - 1.0 %) 0.5 Neut # (Auto) (K/mm3) 6.5 Lymph # (Auto) (K/mm3) 1.5 Lamar # (Auto) (K/mm3) 0.5 Eos # (Auto) (K/mm3) 0.10 Baso # (Auto) (K/mm3) 0.0 Urines Urine Color (YELLOW) YELLOW Urine Appearance (CLEAR) CLEAR Urine pH (5 - 9) 6.0 Ur Specific Pillager (1.001 - 1.035) 1.020 Urine Protein (NEG) NEGATIVE Urine Glucose (UA) (NEG) NEGATIVE Urine Ketones (NEG) NEGATIVE Urine Blood (NEG) NEG Urine Nitrite (NEG) NEG Urine Bilirubin (NEG) NEGATIVE Urine Urobilinogen (NEG mg/dL) NEGATIVE Ur Leukocyte Esterase (NEG) TRACE H Urine RBC (NONE SEEN #/hpf) 0-2 Urine WBC (NONE SEEN #/hpf) 3-5 H Ur Epithelial Cells (RARE - FEW #/HPF) RARE Urine Mucus (NONE SEEN) RARE Microbiology: Date/Time Procedure - Status Source Growth 12/27 1014 GC DNA Probe - COMP CERVIX 12/27 101 Chlamydia DNA Probe (NAZIA) - COMP CERVIX 12/27 1014 Wet Prep - COMP CERVIX Recent Impressions: ULTRASOUND - US LTD 12/27 1123 Report Impression - Status: SIGNED Entered: 12/28/2019 1350 CLINICAL SUMMARY Type of Gestation: Herman Intrauterine in transverse presentatio n. motion and organs seen: body and limb movements observed tone noted abnormalities observed: None seen at this exam Limited OB exam Placental location: Anterior Placental maturity : Grade 0 There is no evidence of placenta previa. Uterus and adnexa: No significant abnormality is seen. A follow-up anatomy scan can be obtained at 18-2 2 weeks. Thank you for allowing us to participate in the care of this patient. Frank Rodriguez M.D Impression By: [email or web address] - Frank Rodriguez MD Procedures Free Text Proc Notes Free Text Proc Notes Labs within normal limits vital signs stable Patient with no leukocytosis d-dimer was negativ e exam fairly benign. Ultrasound was within normal limits go od heart tones and movement. UA clear. Likely this is related to her lower back . And the primary doctor will have the patient follow-up. Strict return precautions for worsening symptoms. Re-Evaluation MDM ED Course Medication(s) Ordered Medication(s) Ordered: Central Nervous System Agents Sig/Brant Start time Last Medication Dose Route Stop Time Status Admin Acetaminophen 1,000 MG X1ED STA 12/27 932 CAN PO 12/27 933 Consultation Consultation Referral/Consult Name Chino Mccord MD Dictionary Editor Called Primary care physician Requested Call Time 141 Requested Call Date 12/28/19 Call Returned Call returned Call Returned Time 141 Call Returned Date 12/28/19 Free Text Consult Notes Discussed the patient in detail her recommendati ons are as follows. Physical therapy follow-up i n office and strict return precautions for worsening symptoms. Patient Discharge Departure Vital Signs/Condition Vital Signs First Documented: Result Date Time Pulse Ox 98 12/28 939 B/P 107/72 12/28 939 B/P Mean 83 12/28 939 O2 Delivery Room air 12/28 939 Temp 37.0 08/07 0940 Pulse 91 12/27 0940 Resp 17 12/27 0940 Last Documented: Result Date Time Pulse Ox 98 / 1405 B/P 94/53 / 1405 B/P Mean 66 / 1405 O2 Delivery Room air 12/27 1405 Temp 36.9 / 1405 Pulse 95 08/ 1405 Resp 16 12/27 1405 All vital signs available at the time of this en try have been reviewed. Condition Stable Clinical Impression Clinical Impression Primary Impression: Lower back pain Secondary Impressions: Pelvi c pain affecting , Vaginal discharge during Disposition Decision Discharge )( Discharged to Home Yes )( Time 1411 )( Date 12/28/19 Discharge/Care Plan Counseled Regarding Diagnosis, Lab resul ts, Need for follow-up, When to return to ED Referrals Chino Mccord MD (PCP) Discharge Note I have spoken with the patie nt and/or caregivers. I have explained the patient's condition, diagnoses and jerel atment plan based on the information available to me at this time. I have answered the patient's and/ or caregiver's questions and addressed any concerns. The patient and/or careg aubrey have as good an understanding of the patient 's diagnosis, condition and treatment plan as can be expected at this point. The vital signs have bee n stable. The patient's condition is stable and appr opriate for discharge from the emergency department. The patient will pursue further outpatient evalu ation with the primary care physician or other designated or consulting phys ician as outlined in the discharge instructions. The patient and/or caregivers are agreeable to this plan of care and follow-up instructions have been exp lained in detail. The patient and/or caregivers have received these instructio ns in written format and have expressed an understanding of the discharge inst ructions. The patient and/or caregivers are aware that any significant change in condition or worsening of symptoms should prompt an immediate return to [facility] or the closest emergency department or a call to 911. Electronically Signed by Stoney Pastrana MD on at 1612 RPT #:[id number] END OF REPORT 2019-12-24 09:48:00-00:00 [id number] [facility] [address], [place] [address] PATIENT NAME: UMESH VORA ADMIT DATE: 12/07/19 ACCOUNT NO: [id number] ROOM NO: F.2600 AGE: 24 SEX: F ADMITTING PHYSICIAN: Ramesh Parisi MD ATTENDING PHYSICIAN: Ramesh Parisi MD ADMISSION DATE: 12/07/2019 DISCHARGE DATE: 12/08/2019 ADMITTING PHYSICIAN: Dr. Ramesh Parisi ADMITTING DIAGNOSES: 1. Acute cholecystitis. 2. Twelve-week . CONSULTANTS WHILE IN THE HOSPITAL: [facility], Dr. Devonte mack covering for Dr. Bill Gordon. BRIEF HISTORY OF PRESENT ILL NESS: This is a 24-year-old female who is currently 12 weeks' , who was treated in the ER and sent home with a diagnosis of gallstones and she returned the same day with the same complaint with increased frequency and intensity of the pain rela marquis to gallstones. She was admitted to the hospital for surgical management. I admitted her through the ER, discussed with the patient and the OB service plan for pro ceeding with cholecystectomy versus continued observation. We went through al l the risks and benefits. The patient spoke with her and decided to pr oceed with surgery. HOSPITAL COURSE: The patient was taken for surge ry on the , she underwent an uncomplicated laparoscopic cholecystectomy. S he also was noted to have a small umbilical hernia at the time of re pair. Postoperatively, the patient was readmitted to the postsurgical floor for close m onitoring. heart tones were taken before and after the procedure and we re normal. The postoperative course: The patient was placed on a bland diet, which she tolerated. She was placed on oral pain medications. She was able to ambulate and void without complications. On the day of discharge, the suni ent was afebrile. Her vital signs were stable. Her abdominal exam was benign . She was tolerating food and plans were made for discharge. DISCHARGE ACTIVITY: Nonstrenuous, no lifting gre ater than 20 pounds for 2 weeks. DISCHARGE DIET: [place]. DISCHARGE MEDICATIONS: Include Tylenol No. 3 wit h Codeine, which were called into her pharmacy. The patient will be called by my office for followup. Dictated By: Ramesh Parisi MD WT: DS:F.LI/DUFPA/NTS PATIENT NAME: UMESH VORA 97 Conf#: [id number]/DID#: [id number] Authenticated by Ramesh Parisi MD On 07/2019 04:03:25 PM at 1603 PATIENT NAME: UMESH VORA 97 2019-12-08 09:28:00-00:00 [id number] [facility] [address] [place] [address] PATIENT NAME: UMESH VORA ADMIT DATE: 12/07/19 ACCOUNT NO: [id number] ROOM NO: 2600 AGE: 24 SEX: F ADMITTING PHYSICIAN: Ramesh Parisi MD ATTENDING PHYSICIAN: Ramesh Parisi MD OPERATION DATE: 12/07/2019 PREOPERATIVE DIAGNOSIS: Symptomatic cholelithias is and . POSTOPERATIVE DIAGNOSES: 1. Symptomatic cholelithiasis and . 2. Umbilical hernia. PROCEDURE: 1. Four-puncture laparoscopic cholecystectomy. 2. Umbilical hernia repair. SURGEON: Ramesh Parisi MD LOAD BUILDER: Judson Gaalviz SA ANESTHESIA: General. COMPLICATIONS: None. SPECIMENS: Gallbladder. ESTIMATED BLOOD LOSS: 5 mL. TOTAL INTRAVENOUS FLUIDS: 1000 mL. INDICATION FOR PROCEDURE: e patient is 12 weeks and has had multiple bouts of biliary colic resulting in an E R visit. She was treated and sent home from the ER and returned the same day wi th increased symptomatology. Risks and benefits of the procedure were explained to the patient, she had all her questions answered and signed consent to proceed . PROCEDURE IN DETAIL: The patient was brought to the operating room, she was placed supine on the table. General anesthesia w as administered. Preoperative antibiotics were administered. The abdomen was p repped and draped in usual sterile fashion. A preprocedure timeout was perf ormed. heart tones were obtained before the case. A vertical incision wa s made at the base of the umbilicus. This was carried down to the level of fascia. We noticed an umbilical hernia in the mid portion of her umbil icus. We dissected away the incarcerated preperitoneal fat until the fascial opening was identified. The hernia sac and contents were amputated at the le chema of the fascia. A 12-mm balloon trocar was placed through the hernia def ect into the abdomen. We established pneumoperitoneum to 15 mmHg. The pat ient was placed in reverse PATIENT NAME: UMESH VORA 97 Trendelenburg with the left side down. Additional 5-mm ports were placed in the epigastrium and two in the right upper quadrant below the costal margin. This was done under direct visualization and followin g infiltration of the preperitoneal space with 0.2 5% plain Marcaine. Upper abdominal anatomy appeared normal. Right and left lobe of the liver were no rmal. The stomach greater curve was normal and all visualized gross anatom ic parts in the upper abdomen were normal. The gallbladder was visualized, it was grasped by my assistant merchandiser, Judson Galaviz, and pushed towards the rig ht hemidiaphragm. He also operated the camera. There were a few ome ntal adhesions at the level of the infundibulum and over the cystic duct. These were taken down blun tly. The infundibulum was grasped with a Prestige grasper and spla yed out laterally. The cystic duct and artery were dissected with a [place] dissector. Both structures were in the usual anatomic position and in normal size and g ross appearance. The critical view was obtained, 5-mm clips were placed on bot h structures, two on the patient's side and one on specimen side. Both we re transected with Endo-scissors. The gallbladder was lifted from t he gallbladder fossa without spillage of bile or stones. Once we removed the gallbladder, the gallbladder fossa was inspected for hemostasis. Once satisfi ed, we put the gallbladder specimen into a 10-mm bag. All instruments were removed. All ports were removed. The specimen was passed off for final pathology. The umbilical hernia was closed with 0 Vicryl in a primary fashion. T he skin was closed with 4-0 Monocryl. Dermabond was applied. All incisions w ere infiltrated with 0.25% plain Marcaine. The patient tolerated the proced ure well. There were no immediate complications. My assistant merchandiser, Oziel Galaviz, has helped in all aspects of the case including retraction, camera operation, suturing and cutting. I am not part of the resident program; theref yazmin, his presence was deemed necessary for safe completion of this operation. Dictated By: Ramesh Parisi MD WT: OP:FTEE/ADELAIDA/ANNA Conf#: [id number]/DID#: [id number] Authenticated by Ramesh Parisi MD On 11/21 09:43:04 AM at 0943 PATIENT NAME: UMESH VORA 497 2019-12-08 09:18:00-00:00 [facility] ([facility]) Clinical Note REPORT#:[id number] REPORT STATUS: Signed DATE:12/08/19 TIME: 917 PATIENT: UMESH VORA UNIT #: [id number] ROOM/BED: [address] : 93 AGE: 24 SEX: F ATTEND: Rosemarie Parisi MD ADM AUTHOR: Ramesh Parisi MD * ALL edits or amendments must be made on the el [employer]/computer document * Clinical Note Note: Patient seen and examined Much better this am vs stable no nausea pain controlled abdomen benign plan home after breakfast at 0918 RPT #:[id number] END OF REPORT 2019-12-07 19:35:00-00:00 [facility] ([facility]) Full Op Note REPORT#:[id number] REPORT STATUS: Signed DATE:12/07/19 TIME: 1934 PATIENT: UMESH VORA UNIT #: [id number] [address] AGE: 24 SEX: F ATTEND: Rosemarie Parisi MD ADM AUTHOR: Ramesh Parisi MD * ALL edits or amendments must be made on the [employer] document * Operative Report ORM Surgeries: Surgery Date and Time: 12/07/2019 1500 Primary Procedure: FOUR PUNCTURE OPEN LAPAROSCO PIC Start date: 12/07/19 Start time: 1100 Pre-procedure diagnosis: symptomatic cholilithiasis in Post-procedure diagnosis: same Procedures performed: 4 puncture laparoscopic cholecystectomy Technique/Procedure: open Bryant technique 4 puncture Primary Surgeon: Isak Monogram Operator(s): Oziel Galaviz Anesthesia: general anesthesia Operative findings: normal biliary anatomy gallstones Complications: none Estimated blood loss in ml's: 5cc Specimens removed/altered: gallbladder Implant(s): none Fluids: 1000cc Disposition: PACU, stable at 1937 RPT #:[id number] END OF REPORT 2019-12-07 09:32:00-00:00 [facility] ([facility]) History Physical - Adult REPORT#:[id number] REPORT STATUS: Signed DATE:12/07/19 TIME: 931 PATIENT: UMESH VORA UNIT #: [id number] ROOM/BED: [address] : 93 AGE: 24 SEX: F ATTEND: Rosemarie Parisi MD ADM AUTHOR: Ramesh Parisi MD * ALL edits or amendments must be made on the [employer] document * History of Present Illness HPI Chief complaint: abdominal pain HPI: 24 yr old female , 12 wks pr egnant who was treated in the ER yesterday and sent home with diagnosis of gallstones. she returned several hours later with the same pain and complaint. These started one month ago. She has had increasing symtpoms and frequency since that time a nd now obtained a diagnosis yesterday. She is currently admitted for pain control and s urgical eval. No pancreatitis or jaundice. Mother had GB removed History Additional medical history: none Additional surgical history: foot surgery Family history: Reports: Gallbladder disease. Alcohol use: Denies EtOH use Drug use: Denies recreational drugs Smoking status for patients 13 years old or olde r: Never Smoker Medication/Allergy-Vaccine Hx Home Medications: NITROFURANTOIN MACROCRYSTAL (MACRODANTIN) 100 MG PO Q12H PNV/FE FUM/FA ( MULTIVITAMIN) 1 TAB PO D AILY Discontinued Medications IBUPROFEN (MOTRIN) 600 MG PO Q6H PRN PRN ABDOMIN AL CRAMPS Discontinued reason: Patient stopped taking Allergies: Coded Allergies: No Known Allergies (12/06/19) Review of Systems Constitutional: Denies: chills, fever. Skin: Denies: itching. Allergy/Immun: Denies: itching. Eyes: Denies: itching. ENT: Denies: nose bleeding. Respiratory: Denies: SOB. Cardiovascular: Denies: chest pain, edema. GI: Reports: abdominal pain, nausea, vomiting. : Denies: urgency. Heme: Denies: bleeding, bruising. Endocrine: Denies: polyuria. Neuro: Denies: confusion. Psych: Denies: confusion. Physical Exam VS/I O Vital Signs: Date Time Temp Pulse Resp B/P B/P Pulse O2 O2 F low FiO2 Mean Ox Delivery Rate 12/06 0855 98.6 91 18 117/85 95.7 97 Room air 12/06 0320 98.6 84 18 101/68 78.9 98 Room air 12/05 2243 98.4 88 18 117/65 82 100 Room air 24 hour I O ending at 0700: 12/06 0700 12/05 1900 Intake Total 300.00 Output Total Balance 300.00 Intake, IV 300.00 Patient 71.8 kg Weight Weight Standing scale Measurement Method Patient Weight Weight (lb): Weight (oz): Weight (kg): 71.800 General appearance: alert, awake Head/Eyes: atraumatic, clear cornea ENT: moist mucosal membranes Neck: no JVD Cardiovascular: regular rate rhythm Respiratory: clear to auscultation, no distress Abdomen quadrants: RUQ tenderness Extremities: moves all Musculoskeletal: full range of motion Neuro/OUTSIDE PLANT ENGINEER: alert, oriented X 3 Diagnosis, Assessment Plan Free Text DxA P Notes Free Text DxA P Notes: impression: symptomatic cholilithiasis in pregna ncy plan: laparoscopic cholecystectomy all questions answered at 0947 RPT #:[id number] END OF REPORT 2019-12-07 00:59:00-00:00 [facility] ([facility]) EMERGENCY PROVIDER REPORT REPORT#:[id number] REPORT STATUS: Signed DATE:12/07/19 TIME: 005 PATIENT: UMESH VORA UNIT #: [id number] ROOM/BED: [facility] AGE: 24 SEX: F PCP PHYS: Ramesh Parisi MD SERVICE AUTHOR: Susannah Wynne MD * ALL edits or amendments must be made on the [employer]/computer document * HPI-Abd Pain F 40 and Over General Initial Greet Date/Time 12/06/192235 Presentation Chief Complaint Abdominal pain Hx Obtained From Patient Sudden in Onset? No Free Text HPI Notes Free Text HPI Notes 24-year-old female G3, at 12 weeks and 5 d ays gestational age presents with severe right upper quad rant abdominal pain described as sharp and tightness that has been intermittent x1 month. Patient was seen in the ER earlier this morning for evaluation of this pain, and had an abdominal ultrasound that demonstrated gallstones without acute cholecysti tis. Patient had a pelvic ultrasound that demonstrated a IUP with FHTs wit hout any gross abnormalities. Patient was discharged home with Tylenol 3 and Zofran and advised to follow-up with general surgery. Patient states that she ca lled and made appointment to see Dr. Parisi in clinic in 4 days. However, suni ent states that just prior to ER arrival she had acute severe worsening of the pain that has not been alleviated by the prescribed Tylenol 3 or Zofran . Pain is currently 8/10 and worse with oral intake. Patient denies vaginal p ain, pelvic pain, vaginal bleeding, abnormal vaginal discharge, fever, vom iting, dysuria. Risk-Abd Pain F 40 and Over )( Abdominal Aortic Aneurysm Risk factors review ed ( nnnnnnnnnn) Review of Systems Basic Review of Systems Basic ROS EYES: No redness, ENT: No sore throat, HEM: No bleeding/bruising, SKIN : No rash, NEURO: No change MS, NEURO: No focal deficit, PSYCH: NL thought content Focused Review of Systems Constitutional Denies: Fever. Respiratory Denies: Cough, non-productive, Cough, productive , Shortness of breath. Cardiovascular Denies: Chest pain, Syncope. GI Reports: Abdominal pain, Nausea. Denies: Constip ation, Diarrhea, Vomiting. Female Denies: Dysuria, Flank pain, , Urinary f requency, Urinary urgency. Musculoskeletal Denies: Back pain, Extremity pain, Extremity swe lling. Past Medical History - Adult Stated Complaint ABD PAIN,12 WEEKS IUP, DIAGNOSE D WITH GALLSTONE Allergies Coded Allergies: No Known Allergies (12/06/19) Home Medications Discontinued Scripts IBUPROFEN (MOTRIN) 600 MG PO Q6H PRN PRN ABDOMIN AL CRAMPS IBUPROFEN (MOTRIN) 600 MG PO Q6H PRN PRN ABDOMI NAL CRAMPS #30 TABS Prov: 12/06/18 DC: 12/06/19 0315 Patient stopped taking Reported Medications PNV/FE FUM/FA ( MULTIVITAMIN) 1 TAB PO D AILY NITROFURANTOIN MACROCRYSTAL (MACRODANTIN) 100 MG PO Q12H Physical Exam Vital Signs Vital Signs First Documented: Result Date Time Pulse Ox 100 12/053 B/P 117/65 12/05 2243 B/P Mean 82 12/05 2243 O2 Delivery Room air 12/05 2242 Temp 98.4 12/05 2242 Pulse 88 12/05 2243 Resp 18 12/05 2242 Last Documented: Result Date Time Pulse Ox 100 12/05 2243 B/P 117/65 12/05 2243 B/P Mean 82 12/05 2243 O2 Delivery Room air 12/05 2242 Temp 98.4 12/05 2242 Pulse 88 12/05 2242 Resp 18 12/05 2242 Review of Vital Signs Reviewed Focused PE General/Const General/Const Awake, Alert, No acute di stress, Well appearing, Well developed , Well hydrated, Well nourished, Cooperative, No t toxic appearing Resp/Chest Respiratory/Chest Atraumatic, Breath sounds NL, Breath sounds = bilat, No respiratory distress, No rales, No rhonchi, No w heezing Cardiovascular Cardiovascular Heart rate NL, Regular rhythm, H eart sounds NL, No gallop, No murmurs Abdomen/GI Abdomen/GI Atraumatic, Soft, moderate to severe RUQ tenderness with guarding MS Back Back Atraumatic, Inspection NL, No CVA tenderne ss Skin Skin Atraumatic, Color NL, No rash, Warm, Dry Neurologic Neurologic Oriented X3, Speech NL, CN II - XII intact, Gait NL Interpretation Diagnostics Lab Results Interpretation Results Laboratory Tests 12/06/192254: [Embedded Image Not Available] Laboratory Tests: 12/05 2254 Chemistry Sodium (135 - 145 mEq/L) 135 Potassium (3.5 - 5.0 mEq/L) 3.9 Chloride (100 - 115 mEq/L) 101 Carbon Dioxide (22 - 31 mEq/L) 24 Anion Gap (10 - 20) 13.60 BUN (7 - 18 mg/dL) 9 Creatinine (0.5 - 1.0 mg/dL) 0.6 Glomerular Filtr Rate (>60 ml/min) 121 Glucose (65 - 110 mg/dL) 102 Calcium (8.4 - 10.2 mg/dL) 8.3 L Total Bilirubin (0.2 - 1.0 mg/dL) 0.2 AST (15 - 37 units/L) 12 L ALT (12 - 78 units/L) 14 Total Alk Phosphatase (46 - 116 units/L) 54 Total Protein (6.3 - 8.2 gm/dL) 6.9 Albumin (3.4 - 4.8 gm/dL) 3.2 L Lipase (73 - 393 units/L) 99 Hematology WBC (6.6 - 12.1 K/mm3) 9.6 RBC (3.45 - 5.01 M/mm3) 3.95 Hgb (10.7 - 13.9 g/dL) 12.2 Hct (32.1 - 42.1 %) 36.8 MCV (84.1 - 94.8 fL) 93 MCH (27 - 35 pg) 30.9 MCHC (32.2 - 34.1 gm/dL) 33.2 RDW (12.4 - 16.5 %) 13.0 Plt Count (133 - 385 K/mm3) 309 MPV (9.1 - 12.7 fl) 10.5 Neut % (Auto) (56.5 - 79.4 %) 64.6 Lymph % (Auto) (14.3 - 34.3 %) 24.8 Lamar % (Auto) (5.1 - 10.4 %) 8.4 Eos % (Auto) (0.1 - 3.0 %) 1.2 Baso % (Auto) (0.1 - 1.0 %) 0.5 Neut # (Auto) (K/mm3) 6.2 Lymph # (Auto) (K/mm3) 2.4 Lamar # (Auto) (K/mm3) 0.8 Eos # (Auto) (K/mm3) 0.12 Baso # (Auto) (K/mm3) 0.1 Lab Imaging Statement Laboratory radiographic studies reviewed and con sidered in the medical decision-making. Re-Evaluation MDM Free Text MDM Notes Free Text MDM Notes Spoke to Dr. Lemos, environmental services technician for Dr. Bill James with admission to Dr. Parisi and OB does not need to be consulted. )( Re-Evaluation/Progress #1 Time of Re-Eval 0122 )( Re-Eval Status Improved ED Course Medication(s) Ordered Medication(s) Ordered: Central Nervous System Agents Sig/Brant Start time Last Medication Dose Route Stop Time Status Admin Morphine Sulfate 4 MG Q4H PRN PRN 12/06 0130 AC IV 12/07 0123 Morphine Sulfate 4 MG X1ED STA 12/05 2318 DC / IV 12/05 2319 2336 Electrolytic, Caloric, And [place] Sig/Brant Start time Last Medication Dose Route Stop Time Status Admin Sodium Chloride 1,000 ML X1ED STA 12/06 0123 AC 12/06 IV 12/06 1122 0145 Sodium Chloride 1,000 ML X1ED STA 12/05 2319 DC / IV 12/05 2320 2341 Gastrointestinal Drugs Sig/Brant Start time Last Medication Dose Route Stop Time Status Admin Ondansetron HCl 4 MG Q6H PRN PRN 12/06 0130 AC IV 12/07 0123 Ondansetron HCl 4 MG ONCE ONE 12/05 2330 DC IV 12/05 2331 Consultation Consultation Referral/Consult Name Ramesh Parisi MD Dictionary Editor Called Surgeon Requested Call Time 0100 Requested Call Date 12/07/19 Call Returned Call returned Call Returned Time 0100 Call Returned Date 12/07/19 Dictionary Editor Admit for symptomatic cholelithiasis Patient Discharge Departure Vital Signs/Condition Vital Signs First Documented: Result Date Time Pulse Ox 100 12/05 2243 B/P 117/65 12/05 2243 B/P Mean 82 07/16 2243 O2 Delivery Room air 12/05 2242 Temp 98.4 12/05 2242 Pulse 88 12/05 2242 Resp 18 12/05 2242 Last Documented: Result Date Time Pulse Ox 100 12/05 2242 B/P 117/65 12/05 2242 B/P Mean 82 12/05 2242 O2 Delivery Room air 12/05 2242 Temp 98.4 12/05 2242 Pulse 88 12/05 2242 Resp 18 12/05 2242 All vital signs available at the time of this en try have been reviewed. Condition Stable Clinical Impression Clinical Impression Primary Impression: Symptomatic cholelithiasis Time of Impression 0100 Disposition Decision Admit Admit Physician Name Ramesh Parisi MD Admit Physician surgeon Request Time 100 Request Date 12/07/19 )( Admission Accepts Yes )( Accepted Time 100 )( Accepted Date 12/07/19 Discharge/Care Plan Referrals Chino Mccord MD Admit Note I have spoken with the patie nt and/or caregivers. I have explained the patient's condition, diagnoses and jerel atment plan based on the information available to me at this time. I have answered the patient's and/ or caregiver's questions and addressed any concerns. The patient and/or careg aubrey have as good an understanding of the patient 's diagnosis, condition and treatment plan as can be expected at this point. The patient has been stabilized within the capability of the emergency department. The patient wi ll be transported for further care and management or will be moved to an observation or inpatient service. I have communicated with the staff or medical p ractitioner taking over this patient's care. at 0543 RPT #:[id number] END OF REPORT 2019-12-06 05:50:00-00:00 [facility] ([facility]) EMERGENCY PROVIDER REPORT REPORT#:[id number] REPORT STATUS: Signed DATE:12/06/19 TIME: 0550 PATIENT: UMESH VORA UNIT #: [id number] ROOM/BED: AGE: 24 SEX: F PCP PHYS: Chino Mccord MD SERVICE AUTHOR: Arnie Lyon MD * ALL edits or amendments must be made on the el [employer]computer document * HPI-General Illness Free Text HPI Notes Free Text HPI Notes 24 yrs old female 2nd trimester c/o right side, associate with nausea and vomiting. No vaginal dis charge, no leakage of fluid or discharge. No fever. No uri. Pt not tolerating po. General Initial Greet Date/Time 12/06/19 025 Presentation Chief Complaint Abdominal pain Hx Obtained From Patient Sudden in Onset? Yes Onset Occurred Today Symptom Duration Since onset Progression since Onset Gradually worsening Location Abdomen Quality Aching Radiation No: Does not radiate. Severity: Onset Pain level 8 out of 10 Severity: Current Pain level 8 out of 10 Associated with Reports: Abdominal pain, Nausea, Vomiting. Associated Other Pt denies other symptoms Exacerbated by Eating Relieved by Rest Context Related History Denies: GERD, Hernia, Hiatal hernia, Malignancy history. Immunization Status General All up to date Recent Healthcare Recent doctor visit, Recent ho spitalization Similar Sx Previous Yes Review of Systems ROS Statements All systems rev neg except as marked. Complete sys rev neg except as marked. Past Medical History - Adult Stated Complaint BACK PAIN,HX OF UTI,12 WKS PREG NANT Allergies Coded Allergies: No Known Allergies (12/06/19) Home Medications Discontinued Scripts IBUPROFEN (MOTRIN) 600 MG PO Q6H PRN PRN ABDOMIN AL CRAMPS IBUPROFEN (MOTRIN) 600 MG PO Q6H PRN PRN ABDOMI NAL CRAMPS #30 TABS Prov: 12/06/18 DC: 12/06/19 0315 Patient stopped taking Reported Medications PNV/FE FUM/FA ( MULTIVITAMIN) 1 TAB PO D AILY NITROFURANTOIN MACROCRYSTAL (MACRODANTIN) 100 MG PO Q12H Review of Nursing Notes Rev avail, and agree Smoking status for patients 13 years old or olde r: Never Smoker Physical Exam Vital Signs Vital Signs First Documented: Result Date Time Pulse Ox 100 12/05 0259 B/P 122/76 12/05 258 B/P Mean 91 12/05 258 O2 Delivery Room air 12/05 258 Temp 36.7 12/05 258 Pulse 97 12/05 025 Resp 17 12/05 258 Last Documented: Result Date Time Pulse Ox 100 12/05 0532 B/P 106/72 12/05 0532 B/P Mean 83 12/05 05 O2 Delivery Room air 12/06 531 Temp 37.2 12/05 05 Pulse 88 12/05 05 Resp 16 12/05 05 Review of Vital Signs Reviewed Physical Exam General/Const General/Const Awake, Alert, Well appearing MS Head Head Normocephalic Ears/Nose/Throat Ears/Nose/Throat Airway patent, Mucous membran es moist, Pharynx NL Resp/Chest Respiratory/Chest Breath sounds NL, Breath soun ds = bilat, No respiratory distress, No rales, No rhonchi, No wheezing Cardiovascular Cardiovascular Heart rate NL, Regular r hythm, Heart sounds NL, Cap refill not delayed, Peripheral circulation NL Abdomen/GI Abdomen/GI Soft, Non-tender, No guarding, No re bound Tenderness/Guarding/Rebound Tender RUQ. MS Upper Extrem Upper Extremity/MS Inspection NL, No swelling, Non-tender, No erythema, No deformity, Neurologic intact, Vascular intact, N o clubbing/cyanosis MS Lower Extrem Lower Ext/Pelvis/MS Inspection NL, No swelling, Non-tender, No erythema, No deformity, Neurologic intact, Vascular intact, N o edema Skin Skin Color NL, Warm, Dry, Turgor NL Neurologic Neurologic Oriented X3, Speech NL, No motor def icits, No sensory deficits Psychiatric Psychiatric Affect NL, Mood NL, Thought content NL Interpretation Diagnostics Lab Results Interpretation Results Laboratory Tests 12/06/19 0320: [Embedded Image Not Available] Laboratory Tests: 12/05 12/05 12/05 0320 0305 0305 Chemistry Sodium (135 - 145 mEq/L) 135 Potassium (3.5 - 5.0 mEq/L) 3.8 Chloride (100 - 115 mEq/L) 101 Carbon Dioxide (22 - 31 mEq/L) 25 Anion Gap (10 - 20) 12.60 BUN (7 - 18 mg/dL) 7 Creatinine (0.5 - 1.0 mg/dL) 0.6 Glomerular Filtr Rate (>60 ml/min) 121 Glucose (65 - 110 mg/dL) 99 Calcium (8.4 - 10.2 mg/dL) 9.0 Total Bilirubin (0.2 - 1.0 mg/dL) 0.2 AST (15 - 37 units/L) 10 L ALT (12 - 78 units/L) 17 Total Alk Phosphatase (46 - 116 units/L) 58 Total Protein (6.3 - 8.2 gm/dL) 7.4 Albumin (3.4 - 4.8 gm/dL) 3.5 Lipase (73 - 393 units/L) 102 Hematology WBC (6.6 - 12.1 K/mm3) 10.3 RBC (3.45 - 5.01 M/mm3) 4.06 Hgb (10.7 - 13.9 g/dL) 12.9 Hct (32.1 - 42.1 %) 37.3 MCV (84.1 - 94.8 fL) 92 MCH (27 - 35 pg) 31.8 MCHC (32.2 - 34.1 gm/dL) 34.6 H RDW (12.4 - 16.5 %) 12.8 Plt Count (133 - 385 K/mm3) 317 MPV (9.1 - 12.7 fl) 10.0 Neut % (Auto) (56.5 - 79.4 %) 68.5 Lymph % (Auto) (14.3 - 34.3 %) 23.0 Lamar % (Auto) (5.1 - 10.4 %) 6.4 Eos % (Auto) (0.1 - 3.0 %) 1.2 Baso % (Auto) (0.1 - 1.0 %) 0.3 Neut # (Auto) (K/mm3) 7.0 Lymph # (Auto) (K/mm3) 2.4 Lamar # (Auto) (K/mm3) 0.7 Eos # (Auto) (K/mm3) 0.12 Baso # (Auto) (K/mm3) 0.0 Urines Urine Color (YELLOW) YELLOW Urine Appearance (CLEAR) CLEAR Urine pH (5 - 9) 6.0 Ur Specific Pillager (1.001 - 1.035) 1.006 Urine Protein (NEG) NEGATIVE Urine Glucose (UA) (NEG) NEGATIVE Urine Ketones (NEG) NEGATIVE Urine Blood (NEG) NEG Urine Nitrite (NEG) NEG Urine Bilirubin (NEG) NEGATIVE Urine Urobilinogen (NEG mg/dL) NEGATIVE Ur Leukocyte Esterase (NEG) NEG Urine RBC (NONE SEEN #/hpf) 0-2 Urine WBC (NONE SEEN #/hpf) 0-2 Ur Epithelial Cells (RARE - FEW #/HPF) RARE Urine Bacteria (RARE - FEW /HPF) RARE Urine Mucus (NONE SEEN) RARE Urine HCG, Qual POSITIVE Recent Impressions: ULTRASOUND - DUP AB/PEL/SC/LTD 12/06 439 Report Impression - Status: SIGNED Entered: 12/06/2019606 IMPRESSION: 1. Single viable intrauterine gestation with son ographic gestational age of 12 weeks 5 days. 2. Corpus luteum cyst in the left ovary. SL: SHEILA-Jah Impression By: Guillermo Nguyen M.D. ULTRASOUND - US PREG EVAL 1ST TRIMTR 12/06 439 Report Impression - Status: SIGNED Entered: 12/06/2019606 IMPRESSION: 1. Single viable intrauterine gestation with son ographic gestational age of 12 weeks 5 days. 2. Corpus luteum cyst in the left ovary. SL: SHEILA-Jah Impression By: Guillermo Nguyen M.D. ULTRASOUND - US ABDOMEN COMPLETE 12/06 439 Report Impression - Status: SIGNED Entered: 12/06/2019600 IMPRESSION: 1. Gallstones. Positive sonographic Tang's sig n. No pericholecystic fluid or abnormal gallbladder wa ll thickening seen. Findings are nonspecific. If indicated, nuclear medicine HIDA scan may be beneficial. 2. Mild hepatomegaly. There is a 5.7 x 4.0 x 5.5 cm subtle heterogenous area in the left hepatic lobe/cauda te lobe. Mass is not excluded. If indicated, MRI can be performed for further assessment. SL: SHANTELL Impression By: Guillermo Nguyen M.D. Lab Statement Laboratory studies reviewed and considered in e medical decision-making. Imaging Statement Radiographic studies reviewed and considered in the medical decision-making. Lab Imaging Statement Laboratory radiographic studies reviewed and con sidered in the medical decision-making. Point of Care Testing Pulse Oximetry Pulse Ox % 99 On: Room air Interpretation Interpreted by me, Pulse oximetr y normal Time 0541 Re-Evaluation MDM Free Text MDM Notes Free Text MDM Notes 24 yrs old female 2nd trimester c/o rig ht side. Gallstone, abd pain, nausea. Us showed gallstone Normal cbc, cmp, ua, lipase Iv fluid given. Pt felt better pt did not want to get admit No bleeding, no discharge Normal heart tone. Referred to dr. parisi general surgery, and ob do ctor. ED Course Medication(s) Ordered Medication(s) Ordered: Electrolytic, Caloric, And Sheeba Sig/Brant Start time Last Medication Dose Route Stop Time Status Admin Sodium Chloride 1,000 ML X1ED STA 12/05 0340 DC 12/05 IV 12/05 034 0357 Gastrointestinal Drugs Sig/Brant Start time Last Medication Dose Route Stop Time Status Admin Ondansetron HCl 4 MG ONCE ONE 12/05 034 DC IV 12/05 034 0357 Consultation Consultation Referral/Consult Name Felicita Mckinney MD Dictionary Editor Called [facility], On-call physician Requested Call Time 621 Requested Call Date 12/06/19 Call Returned Call returned Call Returned Time 621 Call Returned Date 12/06/19 Dictionary Editor Will see patient, Will see in office , Agrees with eval, Agrees with plan Free Text Consult Notes ok to go home, follow up in the office. Patient Discharge Departure Vital Signs/Condition Vital Signs First Documented: Result Date Time Pulse Ox 100 12/05 0259 B/P 122/76 12/05 0259 B/P Mean 91 12/05 0259 O2 Delivery Room air 12/05 0259 Temp 36.7 12/05 0259 Pulse 97 12/05 0259 Resp 17 12/05 0259 Last Documented: Result Date Time Pulse Ox 100 12/05 0532 B/P 106/72 12/05 0532 B/P Mean 83 12/05 0532 O2 Delivery Room air 12/05 0532 Temp 37.2 12/05 0532 Pulse 88 12/05 0532 Resp 16 12/05 0532 All vital signs available at the time of this en try have been reviewed. Condition Improved, Stable Clinical Impression Clinical Impression Primary Impression: Abdominal pain Secondary Impressions: Gallstone, Time of Impression 0602 Disposition Decision Discharge )( Discharged to Home Yes )( Time 06 )( Date 12/06/19 Discharge/Care Plan Counseled Regarding Diagnosi s, Lab results, Imaging studies, Prescriptions, Need for follow-up, When to return to ED Rx Drug Database Reviewed Yes Prescriptions tylenol zofran Referrals Chino Mccord MD (PCP) at 05[address] [facility] #:[id number] END OF REPORT 2018-12-06 09:19:00-00:[address] [facility] ([facility]) Full Op Note REPORT#:[id number] REPORT STATUS: Signed DATE:12/06/18 TIME: 918 PATIENT: UMESH DACOSTA UNIT #: [id number] ROOM/BED: : 93 AGE: 23 SEX: F ATTEND: Chino Mccord MD ADM AUTHOR: Chino Mccord MD * ALL edits or amendments must be made on the [employer]/computer document * Operative Report ORM Surgeries: Surgery Date and Time: 12/06/2018 08 Primary Procedure: CERVICAL DILATION UTERINE CU RETTAGE Start date: 12/06/18 Start time: 822 Pre-procedure diagnosis: molar Post-procedure diagnosis: molar Procedures performed: suction dilation and curettage, exam und er anesthesia, transvaginal ultrasound Technique/Procedure: Risks/benefits discussed, pt agreed to maximino uriarte. She was taken to the operating room, and anesthesia was obtained without diffic ulty. She was prepped and draped in the standard sterile fashion using dos al lithotomy position using yellowfin stirrups. bladder was drained using a red rubber catheter, which was then removed. Transvaginal u /s performed, demonstrating a heterogenous material in the endomeetrial cavity- 2.5 cm. Transvaginal u/s probe was removed. Weighted speculum was palced vaginally, with Blanka guillaume for visualization of the cervix. A single toothed tenaculum was placed in the anterior lip of the cervix. A cervical block of 20mL 1%lidocaine and 5 units vasopressin was divided evenly and injected at 2, 4, 8, 10 oclock. The uterus sounded to 10cm. Houser dilaters were used for cervical dilation u ntil a 7mm flexible curette could be used. Two passes were made with the fle xible suction curette. A smooth bovine cureete was used to assess the uterine cry, and a final pass was made with the suction curette. The transvaginal u/s was repeated, with EMS of 0.5cm, smooth and homogenous. The vaginal probe was removed, as was the tenaculum. pressure was held on the tenaculum si te with good resulting hemostasis. All instruments were removed. Pt maude erated the procedure well. Counts correct x 2. Primary Surgeon: Rocio Gordon Monogram Operator(s): none Anesthesia: general anesthesia Indications: suspected molar Operative findings: 10 cm uterine sound, heterogenous enodmetrial co ntents, with thin homogenous endometrial stripe after the procedure was compl eted. Complications: none Estimated blood loss in ml's: 30mL Specimens removed/altered: products of conceptio n Implant(s): none Fluids: 1000mL Urine output: 10mL Disposition: plan to D/C home Counts: Sponge count: correct Instrument count: correct Needle count: correct at 2147 RPT #:[id number] END OF REPORT 2018-12-05 16:07:00-00:00 [facility] ([facility]) [employer] Admission H P REPORT#:[id number] REPORT STATUS: Signed DATE:12/05/18 TIME: 1607 PATIENT: UMESH DACOSTA UNIT #: [id number] ROOM/BED: : 93 AGE: 23 SEX: F ATTEND: Chino Mccord MD ADM AUTHOR: Chino Mccord MD * ALL edits or amendments must be made on the el [employer]/computer document * History of Present Illness Free Text HPI Notes Free Text HPI Notes: CC: molar HPI: 23y. with LMP 10/06/18, who has been fo und to have an HCG or 74,528, and an u/s 12/04/18 deminstrating a uterus of 9.5 x 5.1 x 5.8 cm, with endometrium and contents pro minent and heterogenous in appearacne, with overall AP measurement of 25mm. lobulated hypere choic areas as well as multiple cystic areas are present within the endometrium. some c ontents demonstrate flow on color imaging. no fibroids. ribht ovary 38 x 27x 25mm with [id number] corpus luteum cyst. left ovary 26 x 16 x 25 mm. normal apperaance. small amount of non -psecific fluid. no evidence of GS or em bryo, or ectopic. most consistent with POCs- possibly molar given the complexity of the appearance. she has not been having vaginal pain or bleeding . History Allergies: Coded Allergies: No Known Allergies (12/05/18) Free Text Hx Notes Free Text Hx Notes: PMH: 5.1 cm left liver focal nodular hyperplasia . chlamydia/trichomonas 2010. PSH: right foot surgery 2011, cyst removal 2017 Family Hx: DM, CAD, breast cancer, colon cancer. Home medications: PNV. 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 no tobaccono etoh, no illicits. Review of Systems : Reports: . All systems rev neg: except as marked Physical Exam VS/I O Vital Signs: Date Time Temp Pulse Resp B/P B/P Pulse O2 O2 Flow FiO2 Mean Ox Delivery Rate 12/06 0906 Simple [id number] mask 12/06 0520 98.6 78 18 106/64 99 Patient Weight Weight (lb): Weight (oz): Weight (kg): Results Findings/Data: 12/04/18 labs: Hgb 10.1, Cr 0.6, TSH 0.81 HCG 74, 528 blood type A positive. Free Text PE Notes Free Text PE Notes: Gen: A Ox3, NAD RRR, no murmurs, CTAB, no wheezing Abd; soft, NT, ND, no masses Ext: wwp, no edema. Diagnosis, Assessment Plan Problem List/A P: 1. Molar Additional comments: 23 y at 8w5 days by LMP, with suspected mol ar on u/s. Risks/benefits of D C discus sed, all qustions answered. will proceed. discussed plan for long chain quiller tender f/u of hcg due to molar pregn nba, will need to delauy anotehr for now. RH+. at 0918 RPT #:[id number] END OF REPORT
[2022-12-15 14:06] LABS: Specific Gravity 1.006 (1.005-1.030)
[2022-12-15 14:07] LABS: Specific Gravity 1.006 (1.005-1.030); Urine Bacteria None Seen /HPF (<20); Urine Bilirubin NEGATIVE (Negative); Urine Blood 3+ (Negative); Urine Clarity Clear (Clear); Urine Color Colorless (Yellow); Urine Glucose NEGATIVE (Negative); Urine Protein NEGATIVE (Negative); Urine RBC <5 /HPF (None Seen); Urine Urobilinogen Normal (Normal)
[2022-12-15] MEDS ORDERED: FAMOTIDINE 20 MG/2 ML VIAL IV ONE (14:16)
[2022-12-15] MEDS ORDERED: MORPHINE 2 MG/ML SYR ONE (14:16)
[2022-12-15] MEDS ORDERED: ONDANSETRON 4 MG/2 ML VIAL ONE (14:16)
[2022-12-15] MEDS ORDERED: NA CHLORIDE 0.9% 1,000 ML ONE (14:16)
[2022-12-15 14:49] LABS: Absolute Lymphocytes (CBC) 2.3 K/uL (0.7-4.9); Hematocrit 37.4 % (36.0-45.0); Lymphocytes % 36.1 % (15.3-44.8); MCV 92.8 fL (80-100); MPV 8.1 fL (7.6-11.3); RBC Red Blood Cell Count 4.03 M/uL (3.86-4.86)
--- NOTE | 2022-12-15 15:06 | RAD REPORT ---
EXAM DESCRIPTION: CT - Head Brain Wo Cont - 12/15/2022 2:57 pm CLINICAL HISTORY: HEADACHE COMPARISON: Head Brain W/Wo Con dated 11/18/2016; HEAD BRAIN W O CONTRAST dated 08/22/2014 TECHNIQUE: All CT scans are performed using dose optimization technique as appropriate and may inclu de automated exposure control or mA/KV adjustment according to patient size. FINDINGS: No intracranial hemorrhage, hydrocephalus or extra-axial fluid collection.No areas of brai n edema or evidence of midline shift. The paranasal sinuses and mastoids are clear. The calvarium is intact. IMPRESSION: No acute intracranial abnormality.
[2022-12-15 15:09] LABS: Albumin 3.7 g/dL (3.4-5.0); Bilirubin Total 0.3 mg/dL (0.2-1.0); Potassium 3.7 mEq/L (3.5-5.1); Protein, Total 7.8 g/dL (6.4-8.2)
--- NOTE | 2022-12-15 15:09 | RAD REPORT ---
EXAM DESCRIPTION: CTAbdomen Pelvis W Contrast - 12/15/2022 2:57 pm CLINICAL HISTORY: Abdominal pain. ABD PAIN COMPARISON: Abdomen Pelvis W Contrast dated 03/02/2018; CT ABD PELVIS W CONTRAST dated 12/05/2013 TECHNIQUE: Biphasic CT imaging of the abdomen and pelvis was performed with 100 ml non-ionic IV cont rast. All CT scans are performed using dose optimization technique as appropriate and may include automated exposure control or mA/KV adjustment according to patient size. FINDINGS: The lung bases are clear. The liver contains 4 cm mass near the caudate lobe, likely FNH. No additional liver finding of concer n. Cholecystectomy. Spleen, pancreas, adrenal glands and kidneys are within normal limits. Cholecyste ctomy. No bowel obstruction, free air, free fluid or abscess. The appendix is normal. No evidence of signi ficant lymphadenopathy. No suspicious bony findings. IMPRESSION: No acute intra-abdominal or pelvic finding.
--- NOTE | 2022-12-15 15:42 | ER ---
Nurse's Notes [facility] Name: Oralia Trent Age: 27 yrs Sex: Female : 1995 Arrival Date: 12/15/2022 Time: 12:42 Bed 18 Private MD: Tereso Castillo Diagnosis: GI Bleed/ Gastrointestinal hemorrhage, unspecified-LOWER;Other hemorrhoids;Dizziness and giddiness Presentation: 12/15 12:59 Chief complaint: Patient states: "I've been having (rectal) blood when I wipe for about aa5 a week now and today I have a headache and I feel like my vision is blurry at times". Also reports dry cough x 1 week ago. Coronavirus screen: At this time, the client does not indicate any symptoms associated with coronavirus-19. Ebola Screen: Patient denies travel to an Ebola-affected area in the 21 days before illness onset. Initial Sepsis Screen: Does the patient meet any 2 criteria? HR > 90 bpm. Does the patient have a suspected source of infection? No. Patient's initial sepsis screen is negative. Risk Assessment: Do you want to hurt yourself or someone else? Patient reports no desire to harm self or others. Onset of symptoms was December 15, 2022. 12:59 Acuity: LUIS ARMANDO 3 aa5 12:59 Method Of Arrival: Ambulatory aa5 Triage Assessment: 13:00 General: Appears in no apparent distress. uncomfortable, Behavior is calm, cooperative, eh3 appropriate for age. Pain: Complains of pain in abdomen. GI: Abdomen is round non-distended, Reports rectal bleeding. MUSIC LIBRARIAN: 12:59 LMP 12/15/2022 aa5 Historical: - Allergies: 13:00 No Known Allergies; aa5 - PMHx: 13:00 None; aa5 - PSHx: 13:00 Breast Augmentation November 15, 2022; R Foot sx; aa5 - Immunization history:: Adult Immunizations unknown. - Social history:: Smoking status: Patient denies any tobacco usage or history of. Screenin:00 [facility] ED Fall Risk Assessment (Adult) Score/Fall Risk Level 0 - 2 = Low Risk. Abuse eh3 screen: Denies threats or abuse. Denies injuries from another. Nutritional screening: No deficits noted. Tuberculosis screening: No symptoms or risk factors identified. Assessment: 13:00 General: Appears in no apparent distress. uncomfortable, Behavior is calm, cooperative, eh3 appropriate for age. Pain: Complains of pain in abdomen. Neuro: Level of Consciousness is awake, alert, obeys commands, Oriented to person, place, time, situation, Reports blurred vision dizziness. Cardiovascular: Capillary refill < 3 seconds Patient's skin is warm and dry. Respiratory: Airway is patent Respiratory effort is even, unlabored, Respiratory pattern is regular, symmetrical. GI: Abdomen is round non-distended, Bowel sounds present X 4 quads. Abd is soft X 4 quads Abdomen is tender to palpation in right lower quadrant and left lower quadrant Reports lower abdominal pain, rectal bleeding. Derm: Skin is healthy with good turgor, Skin is pink, warm \\T\\ dry. Musculoskeletal: Circulation, motion, and sensation intact. Range of motion: intact in all extremities. 14:00 Reassessment: Patient appears in no apparent distress at this time. Patient and/or 3 family updated on plan of care and expected duration. Pain level reassessed. Patient is alert, oriented x 3, equal unlabored respirations, skin warm/dry/pink. 15:00 Reassessment: Patient appears in no apparent distress at this time. Patient and/or 3 family updated on plan of care and expected duration. Pain level reassessed. Patient is alert, oriented x 3, equal unlabored respirations, skin warm/dry/pink. 16:00 Reassessment: Patient appears in no apparent distress at this time. Patient and/or 3 family updated on plan of care and expected duration. Pain level reassessed. Patient is alert, oriented x 3, equal unlabored respirations, skin warm/dry/pink. Vital Signs: 12:59 BP 117 / 83; Pulse 98; Resp 18 S; Temp 97.8(TE); Pulse Ox 100% on R/A; Weight 68.04 kg aa5 (R); Height 5 ft. 1 in. (R); 14:00 BP 110 / 81; Pulse 83; Resp 18; Pulse Ox 100% on R/A; eh3 15:00 BP 101 / 69; Pulse 75; Resp 18; Pulse Ox 100% on R/A; eh3 12:59 Body Mass Index 28.34 (68.04 kg, 154.94 cm) aa5 Tez Coma Score: 15:35 Eye Response: spontaneous(4). Motor Response: obeys commands(6). Verbal Response: tonia oriented(5). Total: 15. ED Course: 12:43 Patient arrived in ED. am2 12:43 Tereso Castillo DO is Private Physician. am2 12:59 Arm band placed on. aa5 13:00 Dhruv Grey MD is Attending Physician. tonia 13:00 Triage completed. aa5 13:00 Patient has correct armband on for positive identification. Bed in low position. Call eh3 light in reach. Side rails up X2. Adult w/ patient. Provided Education on: n/a. awake overnight monitor on. Pulse ox on. Door closed. Noise minimized. Warm blanket given. 14:03 Angely Montiel, SALVADOR is Primary Nurse. eh3 14:30 Inserted saline lock: 20 gauge in left antecubital area, using aseptic technique. Blood eh3 collected. 14:58 CT Abd/Pelvis - IV Contrast Only In Process Unspecified. EDMS 14:58 CT Head Brain wo Cont In Process Unspecified. EDMS 15:39 Tereso Castillo DO is Referral Physician. tonia 15:41 Hai Henson MD is Referral Physician. tonia 15:42 No provider procedures requiring assistance completed. eh3 17:00 IV discontinued, intact, bleeding controlled, No redness/swelling at site. Pressure eh3 dressing applied. Administered Medications: 14:40 Drug: NS 0.9% IV 1000 ml Route: IV; Rate: 1 bolus; Site: left antecubital; eh3 16:55 Follow up: IV Status: Completed infusion; IV Intake: 1000ml eh3 14:40 Drug: Famotidine IVP 20 mg Route: IVP; Site: left antecubital; eh3 15:30 Follow up: Response: No adverse reaction eh3 14:40 Drug: Ondansetron IVP 4 mg Route: IVP; Site: left antecubital; eh3 15:30 Follow up: Response: No adverse reaction eh3 14:40 Drug: morphine IVP or IV 2 mg Route: IVP; Infused Over: 4 mins; Site: left antecubital; eh3 15:30 Follow up: Response: No adverse reaction eh3 15:46 Not Given (Physician Discretion): morphine IVP or IV 2 mg IVP once over 4 mins eh3 Medication: 15:42 VIS not applicable for this client. eh3 Intake: 16:55 IV: 1000ml; Total: 1000ml. eh3 Outcome: 15:41 Discharge ordered by . tonia 16:59 Discharged to home ambulatory. eh3 16:59 Condition: stable 16:59 Discharge instructions given to patient, Instructed on discharge instructions, follow up and referral plans. medication usage, Demonstrated understanding of instructions, follow-up care, medications, Prescriptions given X 1. 17:00 Patient left the ED. eh3 Signatures: Dispatcher [employer] EDHI Dhruv Grey MD MD cha Calderon, Audri, RN RN aa5 Rylie Putnam Erin, RN RN eh3 Corrections: (The following items were deleted from the chart) 13:01 12:59 Chief complaint: Patient states: "I've been having (rectal) blood when I wipe for aa5 about a week now and today I have a headache and I feel like my vision is blurry at times" aa 15:43 15:43 Discharge instructions given to patient, significant other, Instructed on eh3 discharge instructions, follow up and referral plans. medication usage, Demonstrated understanding of instructions, follow-up care, medications, 3 15:46 15:42 IV discontinued, intact, bleeding controlled, No redness/swelling at site. eh3 Pressure dressing applied, 3 15:46 15:43 Discharged to home ambulatory, with significant other, 3 eh3 15:46 15:43 Condition: [facility] 15:46 15:43 Discharge instructions given to patient, significant other, Instructed on 3 discharge instructions, follow up and referral plans. medication usage, Demonstrated understanding of instructions, follow-up care, medications, Prescriptions given X 1, eh3
--- NOTE | 2022-12-15 15:42 | EDPHYS ---
Physician Documentation [facility] Name: Oralia Trent Age: 27 yrs Sex: Female : 1995 Arrival Date: 12/15/2022 Time: 12:42 Bed 18 Private MD: Tereso Castillo ED Physician Dhruv Grey HPI: 12/15 15:33 This 27 yrs old Female presents to ER via Ambulatory with complaints of tonia Abdominal Pain, Dizziness, Blurred Vision, Bloody Stools, Headache. 15:33 The patient presents with dizziness, generalized weakness. Onset: The symptoms/episode tonia began/occurred 3 day(s) ago. Context: occurred at an unknown location, occurred while the patient was walking. Modifying factors: The symptoms are alleviated by nothing, the symptoms are aggravated by nothing. 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 - Social history:: Smoking status: Patient denies any tobacco usage or history of. ROS: 15:34 Constitutional: Negative for fever, chills, and weight loss, Eyes: Negative for injury, tonia pain, redness, and discharge, ENT: Negative for injury, pain, and discharge, Neck: Negative for injury, pain, and swelling, Cardiovascular: Negative for chest pain, palpitations, and edema, Respiratory: Negative for shortness of breath, cough, wheezing, and pleuritic chest pain, Back: Negative for injury and pain, : Negative for injury, bleeding, discharge, and swelling, MS/Extremity: Negative for injury and deformity, Skin: Negative for injury, rash, and discoloration, Psych: Negative for depression, anxiety, suicide ideation, homicidal ideation, and hallucinations, Allergy/Immunology: Negative for hives, rash, and allergies, Endocrine: Negative for neck swelling, polydipsia, polyuria, polyphagia, and marked weight changes, Hematologic/Lymphatic: Negative for swollen nodes, abnormal bleeding, and unusual bruising. 15:34 Abdomen/GI: Positive for rectal bleeding. 15:34 Neuro: Positive for headache, weakness. Exam: 15:34 Constitutional: This is a well developed, well nourished patient who is awake, alert, tonia and in no acute distress. Head/Face: Normocephalic, atraumatic. Eyes: Pupils equal round and reactive to light, extra-ocular motions intact. Lids and lashes normal. Conjunctiva and sclera are non-icteric and not injected. Cornea within normal limits. Periorbital areas with no swelling, redness, or edema. ENT: Nares patent. No nasal discharge, no septal abnormalities noted. Tympanic membranes are normal and external auditory canals are clear. Oropharynx with no redness, swelling, or masses, exudates, or evidence of obstruction, uvula midline. Mucous membranes moist. Neck: Trachea midline, no thyromegaly or masses palpated, and no cervical lymphadenopathy. Supple, full range of motion without nuchal rigidity, or vertebral point tenderness. No Meningismus. Chest/axilla: Normal chest wall appearance and motion. Nontender with no deformity. No lesions are appreciated. Cardiovascular: Regular rate and rhythm with a normal S1 and S2. No gallops, murmurs, or rubs. Normal PMI, no JVD. No pulse deficits. Respiratory: Lungs have equal breath sounds bilaterally, clear to auscultation and percussion. No rales, rhonchi or wheezes noted. No increased work of breathing, no retractions or nasal flaring. Back: No spinal tenderness. No costovertebral tenderness. Full range of motion. Female : Normal external genitalia. Skin: Warm, dry with normal turgor. Normal color with no rashes, no lesions, and no evidence of cellulitis. MS/ Extremity: Pulses equal, no cyanosis. Neurovascular intact. Full, normal range of motion. Neuro: Awake and alert, GCS 15, oriented to person, place, time, and situation. Cranial nerves II-XII grossly intact. Motor strength 5/5 in all extremities. Sensory grossly intact. Cerebellar exam normal. Normal gait. Psych: Awake, alert, with orientation to person, place and time. Behavior, mood, and affect are within normal limits. 15:34 Abdomen/GI: Inspection: abdomen appears normal, Bowel sounds: normal, Palpation: abdomen is soft and non-tender, in all quadrants, Liver: no appreciated palpable abnormalities, Hernia: not appreciated. 15:42 Musculoskeletal/extremity: DVT Exam: No signs of deep vein thrombosis. no pain, no tonia swelling, no tenderness, negative Homans' sign noted on exam, no appreciated bluish discoloration, no erythema, no increased warmth. Vital Signs: 12:59 BP 117 / 83; Pulse 98; Resp 18 S; Temp 97.8(TE); Pulse Ox 100% on R/A; Weight 68.04 kg aa5 (R); Height 5 ft. 1 in. (R); 14:00 BP 110 / 81; Pulse 83; Resp 18; Pulse Ox 100% on R/A; eh3 15:00 BP 101 / 69; Pulse 75; Resp 18; Pulse Ox 100% on R/A; eh3 12:59 Body Mass Index 28.34 (68.04 kg, 154.94 cm) aa5 [place] Coma Score: 15:35 Eye Response: spontaneous(4). Motor Response: obeys commands(6). Verbal Response: tonia oriented(5). Total: 15. MDM: 13:00 Patient medically screened. tonia 15:35 Differential diagnosis: cluster headache, epidural hematoma, hyponatremia. Differential tonia diagnosis: cardiac arrhythmia, CVA, generalized weakness, GI bleed, near-syncope, , TIA. Data reviewed: vital signs, nurses notes, lab test result(s), radiologic studies, CT scan. Consideration of Admission/Observation Escalation of care including admission/observation considered. I considered the following discharge prescriptions or medication management in the emergency department Medications were administered in the Emergency Department. See MAR. Independent interpretation of the following test(s) in the Emergency Department CT Scan: My interpretation is CT HEAD , CT ABD/PELVIS. Test considered but Not performed: MRI: NO MRI BRAIN. Care significantly affected by the following chronic conditions: NONE. Counseling: I had a detailed discussion with the patient and/or guardian regarding: the historical points, exam findings, and any diagnostic results supporting the discharge/admit diagnosis, lab results, radiology results, the need for outpatient follow up, for definitive care, a family practitioner, a medical imaging specialist. 12/15 13:01 Order name: CBC with Diff; Complete Time: 15:11 tonia 12/15 13:01 Order name: CMP; Complete Time: 15:11 [facility] 12/15 13:01 Order name: Lipase; Complete Time: 15:11 [facility] 12/15 13:01 Order name: Test, Urine; Complete Time: 15:11 [facility] 12/15 13:01 Order name: Urinalysis w/ reflexes; Complete Time: 15:11 [facility] 12/15 13:01 Order name: CT Abd/Pelvis - IV Contrast Only; Complete Time: 15:11 [facility] 12/15 13:01 Order name: CT Head Brain wo Cont; Complete Time: 15:11 [facility] 12/15 13:01 Order name: IV Saline Lock; Complete Time: 14:40 [facility] 12/15 13:01 Order name: Labs collected and sent; Complete Time: 14:40 [facility] Administered Medications: 14:40 Drug: NS 0.9% IV 1000 ml Route: IV; Rate: 1 bolus; Site: left antecubital; eh3 16:55 Follow up: IV Status: Completed infusion; IV Intake: 1000ml eh3 14:40 Drug: Famotidine IVP 20 mg Route: IVP; Site: left antecubital; eh3 15:30 Follow up: Response: No adverse reaction eh3 14:40 Drug: Ondansetron IVP 4 mg Route: IVP; Site: left antecubital; eh3 15:30 Follow up: Response: No adverse reaction eh3 14:40 Drug: morphine IVP or IV 2 mg Route: IVP; Infused Over: 4 mins; Site: left antecubital; eh3 15:30 Follow up: Response: No adverse reaction eh3 15:46 Not Given (Physician Discretion): morphine IVP or IV 2 mg IVP once over 4 mins eh3 Disposition Summary: 12/15/22 15:41 Discharge Ordered Location: Home tonia Problem: new tonia Symptoms: have improved tonia Condition: Stable tonia Diagnosis - GI Bleed/ Gastrointestinal hemorrhage, unspecified - LOWER tonia - Other hemorrhoids tonia - Dizziness and giddiness tonia Followup: tonia - With: Tereso Castillo DO - When: 2 - 3 days - Reason: Recheck today's complaints, Continuance of care, Re-evaluation by your physician Followup: tonia - With: Hai Henson MD - When: 2 - 3 days - Reason: Recheck today's complaints, Re-evaluation by your physician Discharge Instructions: - Discharge Summary Sheet tonia - Dizziness tonia - Gastrointestinal Bleeding tonia - Hemorrhoids tonia - Rectal Bleeding tonia - Rectal Bleeding, [id number] tonia Forms: - Medication Reconciliation Form tonia - Thank You Letter tonia - Antibiotic Education tonia - Prescription Opioid Use tonia - Patient Portal Instructions [facility] Prescriptions: - Colace 100 mg Oral Tablet - take 1 tablet by ORAL route every 12 hours; 14 tablet; Refills: 0, Product tonia Selection Permitted Signatures: Dispatcher [employer] Dhruv Wright MD MD cha Calderon, Audri, RN RN aa5 Angely Montiel RN RN eh3
[2022-12-15 18:02] VITALS: O2SAT 100
[2022-12-15 18:04] VITALS: TEMP 97.8
[2022-12-15 18:05] VITALS: BP 101/69
== END 2022-12-15 17:00 | disposition home or self-care (01) ==
LOC: ER 12:42
DX: K64.8 Other hemorrhoids (principal); R42 Dizziness and giddiness; Z98.82 Breast implant status
CPT/HCPCS: 36415; 70450; 74177; 80053; 81001; 81025; 83690; 85025; 96361; 96374; 96375; 99285; J2270; J2405; J7030; Q9967

== ENCOUNTER 2025-02-22 15:59 | Emergency (ER) | payer OTHER ==
[2025-02-22] MEDS ORDERED: MORPHINE 4 MG/ML SYR ONE (16:20)
[2025-02-22] MEDS ORDERED: ONDANSETRON 4 MG/2 ML VIAL ONE (16:20)
[2025-02-22] MEDS ORDERED: NA CHLORIDE 0.9% 1,000 ML ONE (16:21)
[2025-02-22 16:36] LABS: Absolute Lymphocytes (CBC) 2.0 K/uL (0.7-4.9); Hematocrit 39.8 % (36.0-45.0); Hemoglobin 14.0 g/dL (12.0-15.0); MCH 32.2 pg (27.0-35.0); MCHC 35.3 g/dL (32.0-36.0); MCV 91.2 fL (80-100); MPV 8.2 fL (7.6-11.3); Nucleated RBC Absolute Count 0.0 (0-0); Nucleated Red Blood Cells % 0.1 % (0-0); RBC Red Blood Cell Count 4.36 M/uL (3.86-4.86); White Blood Count 9.70 thou/uL (4.3-10.9)
[2025-02-22 16:40] LABS: Sqamous Epithelial <5 /HPF (None Seen); Urine Crystals Unidentified Few /HPF (None Seen); Urine Culture Reflex Order NOT NEEDED; Urine Microscopic Reflex YN ORDER UMIC; Urine Yeast (Budding) Trace /HPF (None Seen)
[2025-02-22 16:54] LABS: ALT/SGPT 29.0 U/L (13-56); AST/SGOT 14.0 U/L (15-37); Albumin 3.5 g/dL (3.4-5.0); Alkaline Phosphatase 63.0 U/L (45-117); Anion Gap 8.3 mEq/L (5.0-15.0); BUN Blood Urea Nitrogen 17.0 mg/dL (7-18); Glucose Level 124.0 mg/dL (74-106); Potassium 3.3 mEq/L (3.5-5.1)
[2025-02-22 16:55] LABS: Albumin/Globulin Ratio 0.9 (1.1-1.8); Globulin 3.7 g/dL (2.3-3.5); Lipase 31.0 U/L (13-75)
--- NOTE | 2025-02-22 17:32 | RAD REPORT ---
EXAMINATION: Abdomen Pelvis W Contrast CLINICAL INDICATION: Female, 29 years old.ABD PAIN TECHNIQUE: CT abdomen and pelvis was performed, after the administration of IV contrast, [facility]. Axial, sagittal and coronal reconstructions were obtained. One or more of the following dose reduction techniques were used: Automated exposure control, adjustment of the mA and/o r kV according to patient size, and/or iterative reconstruction. Unless otherwise specified, incidental findings do not require dedicated imaging follow-up. [id number]. COMPARISON: 12/15/2022 FINDINGS: LOWER CHEST: No acute process identified. No significant pericardial effusion. Bilateral breast prost heses. Mild circumferential thickening of the distal esophagus which could reflect esophagitis. UPPER GI: No significant abnormality. LIVER: Hepatic steatosis. Benign appearing and/or stable lesions are identified. No suspicious mass. GALLBLADDER/BILE DUCTS: Cholecystectomy.? PANCREAS: No mass, ductal dilation, or sallie-pancreatic fluid. SPLEEN: Unremarkable. ADRENALS: No adrenal masses. KIDNEYS AND URETERS: No hydronephrosis. No suspicious renal mass. Nonobstructing renal calculi. No ur eteral calculi. ABDOMINAL AORTA AND OTHER VESSELS: Normal caliber aorta and IVC. PERITONEUM: Nonspecific free fluid. LYMPH NODES: No pathologic lymphadenopathy. ABDOMINAL WALL: Unremarkable SMALL BOWEL/COLON: Small bowel has normal course and caliber. No colonic wall thickening or pericolon ic inflammatory changes. Normal appendix. URINARY BLADDER: Underdistended but grossly unremarkable. REPRODUCTIVE ORGANS: No pathologic process. MUSCULOSKELETAL: No acute or suspicious osseous abnormality. ADDITIONAL FINDINGS: None. IMPRESSION: No acute findings within the abdomen or pelvis. No appendicitis. Pelvic free fluid is probably physiologic.
--- NOTE | 2025-02-22 17:39 | ER ---
Nurse's Notes [facility] Name: Oralia Trent Age: 29 yrs Sex: Female : 1995 Arrival Date: 02/22/2025 Time: 15:59 Bed 14 Private MD: Diagnosis: Right lower quadrant abdominal tenderness;Dizziness and giddiness Presentation: 02/22 16:17 Chief complaint: Patient states: woke up from nap with lower abd pain, burning pain, iw radiates to right mid back, she got up to the bathroom to try and have a BM , felt like she was going to pass out. Coronavirus screen: At this time, the client does not indicate any symptoms associated with coronavirus-19. 16:17 Method Of Arrival: Ambulatory iw 16:18 Ebola Screen: No symptoms or risks identified at this time. Initial Sepsis Screen: Does iw the patient meet any 2 criteria? No. Patient's initial sepsis screen is negative. Does the patient have a suspected source of infection? No. Patient's initial sepsis screen is negative. Risk Assessment: Do you want to hurt yourself or someone else? Patient reports no desire to harm self or others. Onset of symptoms was February 22, 2025. 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 - Infectious Disease History:: Denies. - Social history:: Smoking status: Patient denies any tobacco usage or history of. Screenin:35 [facility] ED Fall Risk Assessment (Adult) History of falling in the last 3 months, af3 including since admission No falls in past 3 months (0 pts) Confusion or Disorientation No (0 pts) Intoxicated or Sedated No (0 pts) Impaired Gait No (0 pts) Mobility Assist Device Used No (0 pt) Altered Elimination No (0 pt) Score/Fall Risk Level 0 - 2 = Low Risk Oriented to surroundings, Maintained a safe environment, Educated pt \T\ family on fall prevention, incl call for assistance when getting out of bed. Abuse screen: Denies threats or abuse. Denies injuries from another. Nutritional screening: No deficits noted. Tuberculosis screening: No symptoms or risk factors identified. Assessment: 16:35 General: Appears in no apparent distress. uncomfortable, well groomed, well developed, af3 Behavior is calm, cooperative, appropriate for age. Pain: Complains of pain in right lower quadrant and left lower quadrant Pain radiates to right low back Pain currently is 7 out of 10 on a pain scale. Quality of pain is described as burning, sharp. Neuro: Level of Consciousness is awake, alert, obeys commands, Oriented to person, place, time, situation, Appropriate for age. Cardiovascular: Patient's skin is warm and dry. Respiratory: Airway is patent Respiratory effort is even, unlabored, Respiratory pattern is regular, symmetrical. GI: Reports nausea, vomiting. 17:08 Reassessment: Patient appears in no apparent distress at this time. Patient and/or af3 family updated on plan of care and expected duration. Pain level reassessed. Patient is alert, oriented x 3, equal unlabored respirations, skin warm/dry/pink. Patient states symptoms have improved. 17:56 Reassessment: Patient appears in no apparent distress at this time. Patient and/or af3 family updated on plan of care and expected duration. Pain level reassessed. Patient is alert, oriented x 3, equal unlabored respirations, skin warm/dry/pink. Patient states symptoms have improved. Vital Signs: 16:17 BP 111 / 78; Pulse 96; Resp 18; Temp 98.2; Pulse Ox 100% on R/A; Weight 86.18 kg; iw Height 5 ft. 1 in. ; 17:08 BP 102 / 71; Pulse 85; Resp 18; Pulse Ox 100% on R/A; af3 17:56 BP 128 / 82; Pulse 91; Resp 18; Pulse Ox 100% on R/A; af3 16:17 Body Mass Index 35.90 (86.18 kg, 154.94 cm) iw ED Course: 16:03 Patient arrived in ED. cj3 16:06 [facility]au Salmon [facility]C [facility]. dr5 16:06 Gena Pastrana MD is Attending Physician. dr5 16:10 Celeste, Caterina, RN is Primary Nurse. af3 16:18 Triage completed. iw 16:20 Inserted saline lock: 20 gauge in right antecubital area, using aseptic technique. af3 Blood collected. Flushed with 10 mL NS. 16:22 Radiology exam delayed due to test not completed at this time. IV insertion sj attempt and/or patient not having appropriate IV at this time. 16:35 No provider procedures requiring assistance completed. af3 16:35 Patient has correct armband on for positive identification. Bed in low position. Call af3 light in reach. Provided Education on: call light use . 17:22 CT Abd/Pelvis - IV Contrast Only In Process Unspecified. EDMS 17:56 IV discontinued, intact, bleeding controlled, No redness/swelling at site. Pressure af3 dressing applied. Administered Medications: 16:35 Drug: Ondansetron IVP 4 mg IVP once; over 2 minutes Route: IVP; Site: right antecubital;af3 17:00 Follow up: Response: No adverse reaction af3 16:35 Drug: morphine IVP or IV 4 mg IVP once over 4 mins Route: IVP; Infused Over: 4 mins; af3 Site: right antecubital; 17:00 Follow up: Response: No adverse reaction; RASS: Alert and Calm (0) af3 16:35 Drug: NS 0.9% IV 1000 ml IV at 1 bolus Per protocol; to be given as a bolus over 60 af3 minutes Route: IV; Rate: 1 bolus; Site: right antecubital; 17:00 Follow up: Response: No adverse reaction; IV Status: Completed infusion; IV Intake: af3 1000ml Medication: 16:35 VIS not applicable for this client. af3 Intake: 17:00 IV: 1000ml; Total: 1000ml. af3 Outcome: 17:39 Discharge ordered by . dr5 17:56 Discharged to home ambulatory, af3 17:56 Condition: stable 17:56 Discharge instructions given to patient, Instructed on discharge instructions, follow up and referral plans. medication usage, Demonstrated understanding of instructions, follow-up care, medications, Prescriptions given X 2, 17:57 Patient left the ED. af3 Signatures: Dispatcher [employer] Norma Bates Irene, RN RN iw Caterina Celeste RN RN af3 Chau Salmon, CABLE TESTER-C CABLE TESTER-Cdr5 Gisselle Mena cj3 Corrections: (The following items were deleted from the chart) 16:20 16:19 PSHx: Breast Augmentation November 15; iw iw
--- NOTE | 2025-02-22 17:39 | EDPHYS ---
Physician Documentation [facility] Name: Oralia Trent Age: 29 yrs Sex: Female : 1995 Arrival Date: 02/22/2025 Time: 15:59 Bed 14 Private MD: ED Physician Gena Pastrana HPI: 02/22 18:47 This 29 yrs old Female presents to ER via Ambulatory with complaints of dr5 Abdominal Pain, Back Pain, Chills, Nausea, Syncope. 18:47 The patient presents with abdominal pain right lower quadrant. Onset: The dr5 symptoms/episode began/occurred acutely. Patient is a 29-year-old female with no past medical history coming in with right lower quadrant abdominal pain that started after waking from a nap today. Patient reports burning with urination. Patient also reports she was trying to have bowel movement and reports lightheadedness and dizziness that has resolved.. [facility]: 16:20 LMP 01/25/2025, unknown iw Historical: - Allergies: 16:19 No Known Allergies; iw - Home Meds: 16:19 multivitamin oral daily [Active]; iw - PMHx: 16:19 None; iw - PSHx: 16:19 Breast Augmentation November 15; R foot SX; Cholecystectomy; iw - Immunization history:: Adult Immunizations not up to date. - Infectious Disease History:: Denies. - Social history:: Smoking status: Patient denies any tobacco usage or history of. ROS: 18:50 Constitutional: as per hpi dr5 Exam: 18:50 Constitutional: This is a well developed, well nourished patient who is awake, alert, dr5 and in no acute distress. Head/Face: Normocephalic, atraumatic. Eyes: Pupils equal round and reactive to light, extra-ocular motions intact. Lids and lashes normal. Conjunctiva and sclera are non-icteric and not injected. Cornea within normal limits. Periorbital areas with no swelling, redness, or edema. Neck: Trachea midline, no thyromegaly or masses palpated, and no cervical lymphadenopathy. Supple, full range of motion without nuchal rigidity, or vertebral point tenderness. No Meningismus. Chest/axilla: Normal chest wall appearance and motion. Nontender with no deformity. No lesions are appreciated. Cardiovascular: Regular rate and rhythm with a normal S1 and S2. Normal PMI, no JVD. No pulse deficits. Respiratory: Lungs have equal breath sounds bilaterally, clear to auscultation. No rales, rhonchi or wheezes noted. No increased work of breathing, no retractions or nasal flaring. Abdomen/GI: Soft, non-tender, non-distended Back: No spinal tenderness. No costovertebral tenderness. Full range of motion. Skin: Warm, dry with normal turgor. Normal color with no rashes, no lesions, and no evidence of cellulitis. MS/ Extremity: Pulses equal, no cyanosis. Neurovascular intact. Full, normal range of motion. Neuro: Awake and alert, GCS 15, oriented to person, place, time, and situation. Cranial nerves II-XII grossly intact. Motor strength 5/5 in all extremities. Sensory grossly intact. Cerebellar exam normal. Normal gait. Vital Signs: 16:17 BP 111 / 78; Pulse 96; Resp 18; Temp 98.2; Pulse Ox 100% on R/A; Weight 86.18 kg; iw Height 5 ft. 1 in. ; 17:08 BP 102 / 71; Pulse 85; Resp 18; Pulse Ox 100% on R/A; af3 17:56 BP 128 / 82; Pulse 91; Resp 18; Pulse Ox 100% on R/A; af3 16:17 Body Mass Index 35.90 (86.18 kg, 154.94 cm) iw MDM: 16:06 Medical Screening Exam initiated dr5 18:50 Differential diagnosis: diverticulitis, gastritis, Pancreatitis, UTI. Data reviewed: dr5 vital signs, nurses notes, lab test result(s), amylase and lipase, CBC, white blood cell count, hemoglobin, hematocrit, platelets, electrolytes, sodium, potassium, chloride, serum bicarbonate, BUN, creatinine, serum glucose, urinalysis, radiologic studies, CT scan. Consideration of Admission/Observation Escalation of care including admission/observation considered. Discussion considered patient found to have abnormality on the CT scan such as appendicitis. I considered the following discharge prescriptions or medication management in the emergency department I discussed and recommended Over The Counter medications, Medications were administered in the Emergency Department. See MAR. Care significantly affected by the following Social Determinants of Health: Poor access to healthcare and/or lack of insurance, Poor access to transportation, Problems related to employment. Counseling: I had a detailed discussion with the patient and/or guardian regarding the historical points, exam findings, and any diagnostic results supporting the discharge/admit diagnosis, the presence of at least one elevated blood pressure reading (>120/80) during this emergency department visit, lab results, radiology results, the need for outpatient follow up, for definitive care, a family practitioner, to return to the emergency department if symptoms worsen or persist or if there are any questions or concerns that arise at home. Medication response: Normal saline. Response to treatment: the patient's symptoms have resolved after treatment, the patient's condition has returned to base line, the patient is now symptom free. Special discussion: Based on the patient's Hx, exam, and Dx evaluation, there is no indication for emergent surgery or inpatient Tx. It is understood by the patient/guardian that if the Sx's persist or worsen they need to return immediately for re-evaluation. I discussed with the patient/guardian in detail that at this point there is no indication for admission to the hospital. It is understood, however, that if the symptoms persist or worsen the patient needs to return immediately for re-evaluation. Based on the history and exam findings, there is no indication for further emergent testing or inpatient evaluation. I discussed with the patient/guardian the need to see the primary care provider for further evaluation of the symptoms. ED course: CT was normal with no acute abnormality. All labs printed and CT printed to go to patient to follow-up primary care doctor. Will cover patient for urinary tract infection as well as yeast. All questions answered. Patient reports she is feeling much better. And will follow-up primary doctor.. 02/22 16:15 Order name: CBC with Diff; Complete Time: 17:18 dr5 02/22 16:15 Order name: CMP; Complete Time: 17:03 dr5 02/22 16:15 Order name: Lipase; Complete Time: 17:03 dr5 02/22 16:15 Order name: Test, Urine; Complete Time: 16:48 dr5 02/22 16:15 Order name: UA Rfx Jorge Luis Cult if indicated; Complete Time: 16:45 dr5 02/22 16:15 Order name: CT Abd/Pelvis - IV Contrast Only; Complete Time: 17:33 dr5 02/22 16:15 Order name: IV Saline Lock; Complete Time: 16:34 dr5 02/22 16:15 Order name: Labs collected and sent; Complete Time: 16:34 dr5 Administered Medications: 16:35 Drug: Ondansetron IVP 4 mg IVP once; over 2 minutes Route: IVP; Site: right antecubital;af3 17:00 Follow up: Response: No adverse reaction af3 16:35 Drug: morphine IVP or IV 4 mg IVP once over 4 mins Route: IVP; Infused Over: 4 mins; af3 Site: right antecubital; 17:00 Follow up: Response: No adverse reaction; RASS: Alert and Calm (0) af3 16:35 Drug: NS 0.9% IV 1000 ml IV at 1 bolus Per protocol; to be given as a bolus over 60 af3 minutes Route: IV; Rate: 1 bolus; Site: right antecubital; 17:00 Follow up: Response: No adverse reaction; IV Status: Completed infusion; IV Intake: af3 1000ml Disposition Summary: 02/22/25 17:39 Discharge Ordered Notes: Location: Home dr5 Condition: Stable dr5 Diagnosis - Right lower quadrant abdominal tenderness dr5 - Dizziness and giddiness dr5 Followup: dr5 - With: Emergency Department - When: As needed - Reason: Worsening of condition Followup: dr5 - With: Private Physician - When: 1 - 2 days - Reason: Recheck today's complaints, Continuance of care, Re-evaluation by your physician Discharge Instructions: - Discharge Summary Sheet dr5 - Urinary Tract Infection, Adult dr5 - Abdominal Pain, Adult, [id number] dr5 Forms: - Medication Reconciliation Form dr5 - Antibiotic Education dr5 - Patient Portal Instructions dr5 - Leadership Thank You Letter dr5 Prescriptions: - Cephalexin 500 mg Oral Capsule - take 1 capsule ORAL route every 12 hours for 10 days; 20 capsule; Refills: 0, dr5 Product Selection Permitted - Fluconazole 150 mg Oral tablet - take 1 tablet ORAL route Day 1 May repeat after completion of antibiotics.; 2 dr5 tablet; Refills: 0, Product Selection Permitted Signatures: Dispatcher [employer] Annabella Fischer RN RN iw Fry, Ashley, RN RN af3 Chau Salmon FNP-C [employer]-Cdr5 Corrections: (The following items were deleted from the chart) 16:16 16:16 CBC+H.LAB.BRZ ordered. EDMS EDMS 16:16 16:16 COMPREHENSIVE METABOLIC PANEL+C.LAB.BRZ ordered. EDMS EDMS 16:16 16:16 LIPASE+C.LAB.BRZ ordered. EDMS EDMS 16:16 16:16 Test, Urine+UC.LAB.BRZ ordered. EDMS EDMS 16:16 16:16 UA Rfx Jorge Luis Cult if indicated+U.LAB.BRZ ordered. EDMS EDMS 16:20 16:19 PSHx: Breast Augmentation November 15; iw iw
[2025-02-22 18:14] VITALS: TEMP 98.2; O2SAT 100
[2025-02-22 18:17] VITALS: BP 128/82
== END 2025-02-22 17:57 | disposition home or self-care (01) ==
LOC: ER 15:59
DX: R10.813 Right lower quadrant abdominal tenderness (principal); R42 Dizziness and giddiness; Z98.82 Breast implant status
CPT/HCPCS: 85025; 81001; 36415; 81025; 83690; 80053; 74177; 96375; 96374; 99284; Q9967; J2405; J7030